=== PATIENT | female | born 1935 | race Two or more races ===

== ENCOUNTER 2024-11-03 15:05 | Inpatient (IN) | payer OTHER, MEDICAID ==
[~2024-11-03] VITALS: Ht 152.4 cm; Wt 62.4 kg
[~2024-11-03 15:05] MED LIST: ENAL1TAB47 PO
--- NOTE | 2024-11-03 15:23 | ECG ---
[facility] Test Date: 2024-11-03 Test Time: 15:09:13 Pat Name: WON Cuevaspartment: ER Room: 0292 Gender: F Catalog Specialist: BRITTANY : 1935 Requested By: SURYA ATKINSON Order Number: [id number] Reading MD: Ezequiel Balderas Measurements Intervals [place] Rate: 80 P: -36 FL: 120 QRS: 34 QRSD: 85 T: 77 QT: 410 QTc: 473 Interpretive Statements Sinus rhythm Probable LVH with secondary repol abnrm Anterior Q waves, possibly due to LVH Baseline wander in lead(s) I Electronically Signed On 11-08-2024 15:24:09 PST by Ezequiel Balderas Please click the below link to view image of tracing.
[2024-11-03] MEDS: SODIUM CHLORIDE 0.9% 500 ML IV ONE (15:30)
--- NOTE | 2024-11-03 15:53 | DVH ---
CLINICAL INDICATION: gangrene toes TECHNIQUE: 3 radiographic views of the left foot were obtained. Comparison: None FINDINGS/IMPRESSION: 1 cm lytic area in the distal phalanx of the left great toe. Osteoporotic changes are noted. There ar e no gas in the surrounding soft tissues. The visualized joint space is well maintained. The alignment is anatomical. There is no radiopaque foreign body. HS:Y
--- NOTE | 2024-11-03 15:54 | DVH ---
CHEST RADIOGRAPH Indication: near syncope gen weak Technique: Single frontal view of the chest was obtained Comparison: None FINDINGS: Lines and Tubes: None Lungs: No focal consolidation. Pleura: No effusion. No pneumothorax. Cardiomediastinal contours: Unremarkable Bones: No acute osseous abnormality. IMPRESSION: 1. No acute cardiopulmonary disease. HS:Y
--- NOTE | 2024-11-03 16:19 | DVH ---
EXAM: CT HEAD WITHOUT CONTRAST HISTORY: gen weak, near syncope COMPARISON: None TECHNIQUE: Axial images of the head were obtained and reformatted in coronal and sagittal planes. All CT scans at this medical facility are performed using dose modulation techniques as appropriate t o a performed exam including the following: Automated exposure control was utilized; adjustment of th e MA and/or KV according to patient size; and use of iterative reconstruction technique. CT Dose: CTDI volume is 54 mGy. Dose-length product is 965 mGy*cm FINDINGS: There is no evidence of acute intracranial hemorrhage, mass, mass effect midline shift. There is no h ydrocephalus or extra-axial fluid collection. There are mild patchy hypodense changes in the supraten torial white matter compatible with chronic small-vessel ischemic changes. Ruiz-white matter differen tiation is maintained. The visualized paranasal sinuses and mastoid air cells are clear. The calvarium is intact. IMPRESSION: 1. No acute intracranial process. HS:Y
[2024-11-03 17:14] LABS: Basophils # (auto) 0 10 ^3/uL (0-0.2); Basophils % (auto) 0.4 % (0.0-2.0); Eosinophils # (auto) 0 10 ^3/uL (0-0.8); Eosinophils % (auto) 0.3 % (0.0-7.0); Hematocrit 33.9 % (36.0-46.0); Hemoglobin 10.8 g/dL (12.2-16.2); Lymphocytes % (auto) 7.8 % (10.0-50.0); Mean Corpuscular Hemoglobin 28.3 pg (28.0-32.0); Mean Corpuscular Hgb Conc. 31.8 g/dL (32.0-36.0); Mean Corpuscular Volume 88.8 fL (80.0-100.0); Monocytes # (auto) 0.8 10 ^3/uL (0-1.3); Monocytes % (auto) 6.2 % (0.0-12.0); Neutrophils # (auto) 10.3 10 ^3/uL (1.6-8.6); Neutrophils % (auto) 85.3 % (37.0-80.0); Nucleated Red Blood Cells % 0.1 %; Platelet Count (auto) 310 10^3/uL (140-450); Red Blood Cells 3.81 10^6/uL (4.0-5.20); Red Cell Distribution Width 15.6 % (11.8-14.3); White Blood Cell 12.1 10^3/uL (4.4-10.8)
[2024-11-03 17:26] LABS: Carbon Dioxide 23 mmol/L (20-31)
[2024-11-03 17:27] LABS: Calcium 9.3 mg/dL (8.7-10.4); Chloride 102 mmol/L (98-107)
[2024-11-03 17:31] LABS: BUN/Creatinine Ratio 20.5 (10.0-20.0)
[2024-11-03 17:36] LABS: Anion Gap 8 (5-15); Blood Urea Nitrogen 25 mg/dL (9-23); Glucose 119 mg/dL (74-106); Potassium 5.5 mmol/L (3.5-5.1); Sodium 133 mmol/L (136-145)
--- NOTE | 2024-11-03 18:16 | ED.PDOC ---
History of Present Illness HPI Comments 89-year-old female brought in by EMS from home for evaluation of generalized weakness. Per EMS, patient's daughter states that she has been less responsive than normal today. When daughter was attempting to help the patient stand from a seated position, she went limp,, and had to be assisted back to a seated position. She did not lose consciousness. On evaluation by EMS, her initial blood pressure was 97/50. On the repeat, blood pressure was 125/57 without intervention. On arrival to the ER, the patient denies any pain or recent illness. She is alert, oriented x3, and states she just feels generally weak. She denies any headache, vision changes or focal weakness. Of note, the patient has left toe chronic appearing gangrene with surrounding mild for foot discoloration. According to EMS, patient's family stated patient is followed by vascular surgery and recently had a visit with that provider. 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 Moist mucous membranes.) Neck: Full Range of Motion, Non-Tender, Normal Inspection, Supple Respiratory: Lungs Clear, No Accessory Muscle Use, No Respiratory Distress, Normal Breath Sounds Cardiovascular: No Edema, No JVD, Regular Rate/Rhythm Breast Exam: Deferred Gastrointestinal: Non Tender, Soft Genitalia: Deferred Pelvic: Deferred Rectal: Deferred Extremities: Other (Left great toe and 2nd toe chronic appearing gangrene with moderate forefoot hyperpigmented skin changes. No fluctuance, discharge or tenderness.) Neurologic: Alert (Oriented x3), Normal Affect, Normal Mood, Other (Moves all extremities with adequate strength and tone. No gross focal deficit.) Cerebellar Function: NOT DONE Reflexes: NOT DONE Skin: Dry, Normal Color, Warm Lymphatic: NOT DONE Was a procedure done? Was a procedure done?: No EKG EKG : Comments Sinus rhythm, rate 80, normal ID and QRS intervals, QTC 473, LVH, possible old anteroseptal infarct, anteroseptal T inversion Differential Dx Considerations may include: Vasovagal presyncope, CVA, TIA, arrhythmia, OK, PE, hypovolemia, electrolyte imbalance, renal failure, among others X-Ray, Labs, Meds, VS Vital Signs Date Time Temp Pulse Resp B/P (MAP) Pulse Ox O2 Delivery O2 Flow Rate FiO2 11/03/24 20:03 87 18 97 Room Air* 0 21 11/03/24 20:03 98.4 85 18 142/32 (68) 97 98.4 11/03/24 20:00 86 11/03/24 18:22 97.8 87 16 133/43 (73) 97 97.8 11/03/24 18:13 Room Air* 0 21 11/03/24 15:30 98.8 80 16 125/51 (75) 96 11/03/24 15:09 80 Lab Test 11/03/24 18:18 11/03/24 16:56 Range/Units Troponin I High Sensitivity 187 *H 189 *H </=34 ng/L White Blood Count 12.1 H 4.4-10.8 10^3/uL Red Blood Count 3.81 L 4.0-5.20 10^6/uL Hemoglobin 10.8 L 12.2-16.2 g/dL Hematocrit 33.9 L 36.0-46.0 % Mean Corpuscular Volume 88.8 80.0-100.0 fL Mean Corpuscular Hemoglobin 28.3 28.0-32.0 pg Mean Corpuscular Hemoglobin Concent 31.8 L 32.0-36.0 g/dL Red Cell Distribution Width 15.6 H 11.8-14.3 % Platelet Count 310 140-450 10^3/uL Mean Platelet Volume 8.2 6.9-10.8 fL Neutrophils (%) (Auto) 85.3 H 37.0-80.0 % Lymphocytes (%) (Auto) 7.8 L 10.0-50.0 % Monocytes (%) (Auto) 6.2 0.0-12.0 % Eosinophils (%) (Auto) 0.3 0.0-7.0 % Basophils (%) (Auto) 0.4 0.0-2.0 % Neutrophils # (Auto) 10.3 H 1.6-8.6 10 ^3/uL Lymphocytes # (Auto) 1.0 0.4-5.4 10 ^3/uL Monocytes # (Auto) 0.8 0-1.3 10 ^3/uL Eosinophils # (Auto) 0 0-0.8 10 ^3/uL Basophils # (Auto) 0 0-0.2 10 ^3/uL Nucleated Red Blood Cells 0.1 % Sodium Level 133 L 136-145 mmol/L Potassium Level 5.5 H 3.5-5.1 mmol/L Chloride Level 102 98-107 mmol/L Carbon Dioxide Level 23 20-31 mmol/L Anion Gap 8 5-15 Blood Urea Nitrogen 25 H 9-23 mg/dL Creatinine 1.22 H 0.550-1.02 mg/dL Glomerular Filtration Rate Calc 43 >90 mL/min BUN/Creatinine Ratio 20.5 H 10.0-20.0 Serum Glucose 119 H 74-106 mg/dL Lactic Acid Level 2.0 0.4-2.0 mmol/L Calcium Level 9.3 8.7-10.4 mg/dL B-Type Natriuretic Peptide 216.39 0-100 pg/mL Current Medications Medications (Trade) Dose Ordered Sig/Sumanth Route Start Time Stop Time Status Last Admin Sodium Chloride 500 ml @ 500 mls/hr Q1H ONCE IV 11/03/24 15:30 11/03/24 16:29 DC 11/03/24 15:30 Zirconium Oxide (Lokelma) 10 gm ONCE ONCE PO 11/03/24 18:15 11/03/24 18:35 DC 11/03/24 19:10 Aspirin 325 mg ONCE ONCE PO 11/03/24 18:15 11/03/24 18:35 DC 11/03/24 19:10 PROCEDURE(s): HWOCT - HEAD WITHOUT CONTRAST REASON: gen weak, near syncope ORDER NUMBER(s): [id number], ACCESSION NUMBER(s): [id number] EXAM: CT HEAD WITHOUT CONTRAST HISTORY: gen weak, near syncope COMPARISON: None TECHNIQUE: Axial images of the head were obtained and reformatted in coronal and sagittal planes. All CT scans at this medical facility are performed using dose modulation techniques as appropriate to a performed exam including the following: Automated exposure control was utilized; adjustment of the MA and/or KV according to patient size; and use of iterative reconstruction technique. CT Dose: CTDI volume is 54 mGy. Dose-length product is 965 mGy*cm FINDINGS: There is no evidence of acute intracranial hemorrhage, mass, mass effect midline shift. There is no hydrocephalus or extra-axial fluid collection. There are mild patchy hypodense changes in the supratentorial white matter compatible with chronic small-vessel ischemic changes. Ruiz-white matter differentiation is maintained. The visualized paranasal sinuses and mastoid air cells are clear. The calvarium is intact. IMPRESSION: 1. No acute intracranial process. HS:Y EDURE(s): CXRP - CHEST PORTABLE REASON: near syncope gen weak ORDER NUMBER(s): [id number], ACCESSION NUMBER(s): [id number] CHEST RADIOGRAPH Indication: near syncope gen weak Technique: Single frontal view of the chest was obtained Comparison: None FINDINGS: Lines and Tubes: None Lungs: No focal consolidation. Pleura: No effusion. No pneumothorax. Cardiomediastinal contours: Unremarkable Bones: No acute osseous abnormality. IMPRESSION: 1. No acute cardiopulmonary disease. HS:Y EDURE(s): LFOOT - L FOOT 3 VIEW XRAY REASON: gangrene toes ORDER NUMBER(s): [id number], ACCESSION NUMBER(s): [id number] CLINICAL INDICATION: gangrene toes TECHNIQUE: 3 radiographic views of the left foot were obtained. Comparison: None FINDINGS/IMPRESSION: 1 cm lytic area in the distal phalanx of the left great toe. Osteoporotic changes are noted. There are no gas in the surrounding soft tissues. The visualized joint space is well maintained. The alignment is anatomical. There is no radiopaque foreign body. HS:Y X-Ray, Labs, Meds, VS Comment 89-year-old female with a history of dementia, diabetes, hypertension, CVA and peripheral vascular disease presenting with generalized weakness and near syncope Vitals remarkable for BP 125/51 Exam remarkable for left toe gangrenous changes and left distal foot chronic appearing hyperpigmented skin changes Rhythm strip independently interpreted by me: Sinus rhythm, rate 80, no ectopy. CT head unremarkable Chest x-ray unremarkable Left foot x-ray: FINDINGS/IMPRESSION: 1 cm lytic area in the distal phalanx of the left great toe. Osteoporotic changes are noted. There are no gas in the surrounding soft tissues. The visualized joint space is well maintained. The alignment is anatomical. There is no radiopaque foreign body. CBC remarkable for WBC 12.1, metabolic panel remarkable for sodium 133, potassium 5.5, BUN 25, creatinine 1.22, troponin elevated at 189, BNP pending, UA pending Patient treated with the following in the ED: 500 cc 0.9 normal saline IV bolus, Lokelma 10 g p.o., aspirin 325 mg p.o. On re-evaluation, patient was resting comfortably with stable vitals. No new neurologic changes. Denied chest pain or shortness a breath. Plan is to admit the patient for electrolyte correction, serial troponins and Cardiology evaluation Time of 1ST Reevaluation: 18:13 Reevaluation 1ST: Unchanged Patient Education/Counseling: Diagnosis, Treatment Family Education/Counseling: No Family Present Departure 1 Departure Time of Disposition: 18:14 Impression: Primary Impression: Generalized weakness Additional Impressions: Hyperkalemia Non-STEMI (non-ST elevated myocardial infarction) Disposition: 09 ADMITTED INPATIENT [facility]mit to: [facility] Condition: Guarded Critical Care Note Critical Care Time?: No Stability Stability form required: No Heart Score Heart Score: Heart Score Response (Comments) Value History N/A 0 EKG N/A 0 Age N/A 0 Risk Factors N/A 0 Troponin N/A 0 Total 0 SURYA ABBOTT MD Nov 03, 2024 18:16
[2024-11-03] MEDS: SODIUM ZIRCONIUM CYCL 10 GM PAK PO ONE (19:10)
[2024-11-03] MEDS: ASPirin 325 MG TAB PO ONE (19:10)
[2024-11-03 20:03] VITALS: PULSE 87; RESP 18; O2SAT 97
[2024-11-03] MEDS ORDERED: ONDANSETRON HCL 4 MG/2 ML VIAL IV PRN (21:45)
--- NOTE | 2024-11-03 22:04 | DVHHPRES ---
History of Present Illness Resident Creating Document: KENNEDY GAGNON RESIDENT Reason for Visit: Generalized weakness History of Present Illness This is an 89-year-old female who was brought in by EMS from home with chief complain of generalized weakness. She has a past medical history relevant for hypertension, type 2 diabetes, peripheral vascular disease, coronary artery disease status post stent placement on 10/29/2024. History was gathered from family members on patient. 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 She stated that she has been feeling weak. She also stated that she has been seen by vascular surgeon due to peripheral vascular disease and it is soon to be operated. Patient currently denies any chest pain, shortness of breath, lightheadedness, abdominal pain, nausea, vomiting, dizziness, dysuria, urinary urgency or frequency, diarrhea or constipation. PCP: Dr. Ruddy Harmon Pie Crimping Machine Operator: Dr. 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: CVA Endocrine: Diabetes Past Medical History See HPI Past Surgical History See HPI Family History See HPI Smoke: No ALCOHOL: none Drugs: None Lives: with Family Past Social History See HPI Review of Systems Constitutional: No: Fever, Chills, Sweats, Weakness, Malaise, Other Eyes: No: Pain, Vision change, Conjunctivae inflammation, Eyelid inflammation, Other, Redness ENT: No: Ear pain, Ear discharge, Nose pain, Nose discharge, Nose congestion, Mouth pain, Mouth swelling, Throat pain, Throat swelling, Other Respiratory: No: Cough, Dry, Shortness of breath, SOB with excertion, Wheezing, Hemoptysis, Pleuritic Pain, Sputum, Wheezing, Other Cardiovascular: No: Chest Pain, Palpitations, Orthopnea, Paroxysmal Noc. Dyspnea, Edema, Lt Headedness, Other Gastrointestinal: No: Nausea, Vomiting, Abdominal Pain, Diarrhea, Constipation, Melena, Hematochezia, Other Genitourinary: No Dysuria, No Frequency, No Incontinence, No Hematuria, No Retention, No Other Musculoskeletal: No: other, neck pain, shoulder pain, arm pain, back pain, hand pain, leg pain, foot pain Skin: Lesions; No: Rash, Jaundice, Bruising, Other Neurological: No: Weakness, Numbness, Incoordination, Change in speech, Confusion, Seizures, Other Allergies: Coded Allergies: NO KNOWN ALLERGIES (Unverified , 11/03/24) Medications Current Medications Medications Dose Ordered Sig/Sumanth Route Start Time Stop Time Status Last Admin Dose Admin Ondansetron HCl 4 mg Q4HPRN PRN IV 11/03/24 21:45 UNV Acetaminophen/ Hydrocodone Bitart 1 tab Q6HPRN PRN PO 11/03/24 21:45 UNV Piperacillin Sod/ Tazobactam Sod 100 ml @ 25 mls/hr Q8HR IV 11/03/24 22:00 UNV Exam Vital Signs Vital Signs Date Time Temp Pulse Resp B/P (MAP) Pulse Ox O2 Delivery O2 Flow Rate FiO2 11/03/24 20:03 87 18 97 Room Air* 0 21 11/03/24 20:03 98.4 142/32 (68) 98.4 General Appearance: Alert, Oriented X3, Cooperative, No acute distress HEENT: Atraumatic, PERRLA, EOMI, Mucous membr. moist/pink Respiratory: Clear to auscultation, Normal air movement Cardiovascular: Regular rate, Normal S1, Normal S2, No murmurs Abdominal: Normal bowel sounds, Soft, No tenderness Extremities: No clubbing, No cyanosis, No edema, Normal pulses Skin: No rashes (1st and 2nd grade 2 of left foot appeared to have gangrene, no discharge, no fluctuation, moderately tender to palpation. Decreased pulses on lower limbs) Neuro: Normal gait, Normal speech, Strength at 5/5 X4 ext Psych/Mental Status: Mental status NL, Mood NL Labs/Xrays Labs Test 11/03/24 18:18 11/03/24 16:56 Range/Units Troponin I High Sensitivity 187 *H </=34 ng/L White Blood Count 12.1 H 4.4-10.8 10^3/uL Red Blood Count 3.81 L 4.0-5.20 10^6/uL Hemoglobin 10.8 L 12.2-16.2 g/dL Hematocrit 33.9 L 36.0-46.0 % Mean Corpuscular Volume 88.8 80.0-100.0 fL Mean Corpuscular Hemoglobin 28.3 28.0-32.0 pg Mean Corpuscular Hemoglobin Concent 31.8 L 32.0-36.0 g/dL Red Cell Distribution Width 15.6 H 11.8-14.3 % Platelet Count 310 140-450 10^3/uL Mean Platelet Volume 8.2 6.9-10.8 fL Neutrophils (%) (Auto) 85.3 H 37.0-80.0 % Lymphocytes (%) (Auto) 7.8 L 10.0-50.0 % Monocytes (%) (Auto) 6.2 0.0-12.0 % Eosinophils (%) (Auto) 0.3 0.0-7.0 % Basophils (%) (Auto) 0.4 0.0-2.0 % Neutrophils # (Auto) 10.3 H 1.6-8.6 10 ^3/uL Lymphocytes # (Auto) 1.0 0.4-5.4 10 ^3/uL Monocytes # (Auto) 0.8 0-1.3 10 ^3/uL Eosinophils # (Auto) 0 0-0.8 10 ^3/uL Basophils # (Auto) 0 0-0.2 10 ^3/uL Nucleated Red Blood Cells 0.1 % Sodium Level 133 L 136-145 mmol/L Potassium Level 5.5 H 3.5-5.1 mmol/L Chloride Level 102 98-107 mmol/L Carbon Dioxide Level 23 20-31 mmol/L Anion Gap 8 5-15 Blood Urea Nitrogen 25 H 9-23 mg/dL Creatinine 1.22 H 0.550-1.02 mg/dL Glomerular Filtration Rate Calc 43 >90 mL/min BUN/Creatinine Ratio 20.5 H 10.0-20.0 Serum Glucose 119 H 74-106 mg/dL Lactic Acid Level 2.0 0.4-2.0 mmol/L Calcium Level 9.3 8.7-10.4 mg/dL B-Type Natriuretic Peptide 216.39 0-100 pg/mL Assessment/Plan Assessment/Plan # generalized weakness, metabolic encephalopathy possibly related to underlying infection. Rule out osteomyelitis, UTI. # rule out limb ischemia Urine follow blood culture, urine culture. Continue IV fluids Continue Zosyn IV Ordered arterial Doppler Consulted vascular surgery Ordered MRSA swab Ordered MRI of right foot Type and group, PT PTT # NSTEMI likely type 2 due to above # CAD Possibly due to underlying infection Patient also had a stent placed on 10/29/2024 Troponins trending down, EKG reviewed, no acute ST/T changes Continue Plavix 75 mg p.o. q.d. ordered echo # RUSSELL due to VMN Continue IV fluids Avoid nephrotoxic agents # hyperkalemia Lokelma given Monitor # type 2 diabetes Ordered A1c SSI mild # hypertension, controlled Monitor Goals of care were discussed for over 30 minutes. Full code Case was discussed with Dr. Marte Plan discussed with: Patient, Daughter My Orders Orders - KENNEDY GAGNON RESIDENT Procedure Category Date Status Time Admit ADMIT 11/03/24 Transmitted 21:42 Notify Md Of Changes [facility] 11/03/24 In Process From Base 21:42 Railroad Dispatcher For [facility] 11/03/24 In Process 24 Hours 21:42 Emergency Dysrhythmia [facility] 11/03/24 In Process Protocol 21:42 Rhythm Strips Once [facility] 11/03/24 In Process Every Shift 21:42 Urine Bacterial MARY 11/03/24 Logged Culture 21:42 Mrsa Screen MARY 11/03/24 Logged 21:42 Mri R Foot Wo Contrast MRI 11/03/24 Logged 21:42 Bilat Low Ext Art US 11/03/24 Logged Duplex 21:42 Ondansetron Hcl PHA 11/03/24 Logged (Zofran) 21:45 Hydrocodone-Acet PHA 11/03/24 Logged 5/325mg Tab ([place] 21:45 Consistent DIET 11/04/24 Transmitted Carb(Ccho)Diabetes Breakfast Type And Screen BBK 11/03/24 Logged 21:42 PTPTT LAB 11/03/24 Logged 21:42 Potassium LAB 11/03/24 Logged 21:42 Magnesium LAB 11/03/24 Logged 21:42 Piperacillin-Tazob PHA 11/03/24 Logged 3.375gm (Zosyn 3.375g 22:00 Sodium Chloride 0.9% PHA 11/03/24 Logged 21:45 Consult CONS 11/03/24 Transmitted Vascular/Endovascular 21:42 Date of Service: Nov 03, 2024 Billing Provider: GIOVANI MARTE MD Common Visit Codes: 26730-OSOHETY INP/OBS CARE (HIGH) Secondary Visit Codes: 66167-[id number] CARE PLAN 30 MINUTES KENNEDY GAGNON RESIDENT Nov 03, 2024 22:04 GIOVANI MARTE MD Nov 04, 2024 08:23
[2024-11-03] MEDS ORDERED: DEXTROSE (50%) 50ML SYRG IV PRN (22:15)
[2024-11-03 22:38] LABS: Magnesium 2.2 mg/dL (1.6-2.6)
[2024-11-03] MEDS: SODIUM CHLORIDE 0.9% 1,000 ML IV ONE (22:40)
[2024-11-03] MEDS: PIPERACILLIN-TAZOB 3.375GM 100 ML IV SCH (22:40)
[2024-11-03 23:27] LABS: INR 1.08 (0.9-1.15); Partial Thromboplastin Time 31.3 SEC (24.5-34.5); Prothrombin Time 11.4 sec (9.3-11.8)
[2024-11-04 02:50] LABS: Urine Bacteria None Seen /hpf (None Seen)
[2024-11-04 02:54] LABS: Urine Blood Negative /uL (Negative); Urine Clarity Clear (Clear); Urine Color Light-Yellow (Yellow); Urine Protein, UAD Negative (Negative); Urine Specific Gravity 1.022 (1.001-1.035); Urine Squamous Epithelial Cell None Seen /hpf (<5); Urine Urobilinogen 2 mg/dL (Negative); Urine WBC 1 /hpf (0 - 5)
--- NOTE | 2024-11-04 03:48 | DVH ---
Examination: BLEAD CLINICAL INDICATION: foot ischemia. COMPARISON: None. TECHNIQUE: Using real-time ultrasonic imaging and color Doppler the arterial circulation in both low er extremities was studied carefully. FINDINGS: Common femoral, superficial femoral and popliteal arteries are normal in course, caliber and contour bilaterally. These arteries exhibit normal biphasic flow with good diastolic run-off. No evidence of turbulence o r aliasing seen. The peak systolic, peak end-diastolic velocities and their respective S/D ratios in common femoral, s uperficial femoral and popliteal arteries are within normal limits. No evidence of hemodynamically significant stenosis seen. IMPRESSION: No acute arterial occlusion/thrombosis seen. Electronically Signed 11/04/2024 03:47 Casey Hollingsworth
[2024-11-04] MEDS: InsuLIN REG 1unit/0.01ml Soln (100units/ml) SC SCH (07:00)
[2024-11-04] MEDS: ACCU-CHEK COMFORT CURVE STRIP VI SCH (07:06)
[2024-11-04 07:35] LABS: Chloride 106 mmol/L (98-107); Potassium 4.2 mmol/L (3.5-5.1); Sodium 137 mmol/L (136-145)
[2024-11-04 07:36] LABS: Anion Gap 6 (5-15); Basophils # (auto) 0 10 ^3/uL (0-0.2); Basophils % (auto) 0.5 % (0.0-2.0); Calcium 9.2 mg/dL (8.7-10.4); Carbon Dioxide 25 mmol/L (20-31); Eosinophils # (auto) 0.1 10 ^3/uL (0-0.8); Eosinophils % (auto) 0.7 % (0.0-7.0); Hematocrit 30.9 % (36.0-46.0); Hemoglobin 10.3 g/dL (12.2-16.2); Lymphocytes # (auto) 1.7 10 ^3/uL (0.4-5.4); Mean Corpuscular Hemoglobin 29.1 pg (28.0-32.0); Mean Corpuscular Hgb Conc. 33.2 g/dL (32.0-36.0); Mean Corpuscular Volume 87.6 fL (80.0-100.0); Monocytes # (auto) 0.7 10 ^3/uL (0-1.3); Monocytes % (auto) 8.4 % (0.0-12.0); Neutrophils # (auto) 6.4 10 ^3/uL (1.6-8.6); Neutrophils % (auto) 71.4 % (37.0-80.0); Nucleated Red Blood Cells % 0.1 %; Platelet Count (auto) 294 10^3/uL (140-450); Red Blood Cells 3.53 10^6/uL (4.0-5.20); Red Cell Distribution Width 15.8 % (11.8-14.3); White Blood Cell 8.9 10^3/uL (4.4-10.8)
[2024-11-04 07:41] LABS: Blood Urea Nitrogen 23 mg/dL (9-23); Glucose 93 mg/dL (74-106)
[2024-11-04 07:58] VITALS: PULSE 75; RESP 19; O2SAT 95
[2024-11-04 08:20] LABS: Erythrocyte Sedimentation Rate 94 mm/hr (0-20)
[2024-11-04] MEDS: ENALAPRIL MALEATE 10 MG TAB PO SCH (10:28)
[2024-11-04] MEDS: CLOPIDOGREL BISULFATE 75 MG TAB PO SCH (10:29)
--- NOTE | 2024-11-04 10:47 | DVH ---
CLINICAL HISTORY: 89 years old, Female; gangrene of the toes. Rule out osteomyelitis. TECHNIQUE: Multi sequence multi planar MRI images of the left foot were obtained without IV contrast . COMPARISON: Radiographs dated 11/03/2024. FINDINGS: Motion artifact limits evaluation. There is a wound at the distal aspect of the great toe. There is T2/stir hyperintense signal in the proximal and middle phalanges of the great toe. There ap pear to be erosive/destructive changes in the distal phalanx of the great toe, may be due to osteomye litis. There is no T1 hypointense signal in the proximal phalanx of the great toe to suggest osteomye litis at this time. There is also a wound at the distal aspect of the 2nd digit of the left foot with adjacent soft tissu e edema surrounding the middle and distal phalanges of the 2nd digit. There is T1 hypointense and T2 hyperintense signal in the distal phalanx of the 2nd digit, suspected osteomyelitis. T2 hyperintense signal and questionable small areas of T1 hypointense signal in the middle phalanx of the 2nd digit, possible osteomyelitis. There is marrow edema of the tibial sesamoid of the 1st metatarsal, may be due to sesamoiditis and/or arthritic changes. Can not completely exclude osteomyelitis. Cystic change at the plantar aspect of the 1st metatarsal head adjacent to the, likely sequelae of arthritic changes. There is a bipartite configuration of the fibular sesamoid. IMPRESSION: 1. Motion limited study. 2. Wounds of the distal aspects of the 1st and 2nd digits with adjacent soft tissue inflammatory gramajo ges, likely cellulitis. There is gas within the soft tissues of the great toe, may be tracking from t he wound or due to necrotizing infection. 3. Destructive changes in the distal phalanx of the 2nd digit are suspicious for osteomyelitis. There is T2 hyperintense signal in the proximal phalanx of the great toe without corresponding T1 hypointe nse signal to suggest osteomyelitis, likely reactive marrow signal changes, although evaluation is li mited due to the motion artifact. 4. Suspected osteomyelitis in the distal phalanx of the 2nd digit and possible osteomyelitis of the p roximal phalanx of the 2nd digit. 5. Marrow edema in the tibial sesamoid of the 1st metatarsal may be due to sesamoiditis and/or arthri tic changes or reactive marrow signal changes. Osteomyelitis can not be completely excluded. Correla te with clinical findings. 6. Additional findings as described above.
[2024-11-04] MEDS: RIVAROXABAN 2.5 MG TAB PO SCH (10:49)
[2024-11-04 11:03] VITALS: PULSE 92
[2024-11-04 12:46] VITALS: BP 107/79; PULSE 81; RESP 18; TEMP 98.2; O2SAT 98
[2024-11-04] MEDS ORDERED: RIVA2.5T PO (14:53)
[2024-11-04] MEDS ORDERED: DAPA10TA3 PO (14:53)
[2024-11-04] MEDS ORDERED: INSU300I SC (14:53)
[2024-11-04] MEDS ORDERED: FAMO-12 PO (14:53)
[2024-11-04] MEDS ORDERED: CLOP75TA70 PO (14:53)
[2024-11-04] MEDS ORDERED: ATOR20TA50 PO (14:53)
[2024-11-04] MEDS ORDERED: ENAL1TAB42 PO (14:53)
[2024-11-04 17:00] VITALS: BP 164/43; PULSE 75; RESP 19; TEMP 98.6; O2SAT 96
[2024-11-04] MEDS: NIFEdipine ER 30 MG TAB PO ONE (19:30)
--- NOTE | 2024-11-04 19:47 | DVHPNRES ---
Progress Note Date Seen: Nov 04, 2024 Resident Creating Document: ANTHONY LAKHANI RESIDENT Medical Necessity Reason Pt with a Central, PICC or Fol: No Subjective Review of Systems Patient is an 89-year-old female who was brought in by EMS from home with chief complaint of generalized weakness. History was gathered from family members on patient. 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 She stated that she has been feeling weak. She also stated that she has been seen by vascular surgeon due to peripheral vascular disease and it is soon to be operated. Past medical history: hypertension, type 2 diabetes, peripheral vascular disease, coronary artery disease status post stent placement on 10/29/2024. Past surgical history: PTCA x1 Social history: Patient lives with the daughter and does not report any smoking, alcohol or illicit drug use Home medications: Atorvastatin 20 mg, clopidogrel 75 mg, enalapril 2.5 mg q.d., rivaroxaban 2.5 mg b.i.d., insulin glargine 30 units q.a.m., dapagliflozin 10 mg Review of systems Patient currently denies any chest pain, shortness of breath, lightheadedness, abdominal pain, nausea, vomiting, dizziness, dysuria, urinary urgency or frequency, diarrhea or constipation. Objective vital signs Vital Sign Date Time Temp Pulse Resp B/P (MAP) Pulse Ox O2 Delivery O2 Flow Rate FiO2 11/04/24 17:00 98.6 75 19 164/43 (83) 96 98.6 11/04/24 11:30 Room Air* 0 21 Total Intake and Output 11/03/24 11/03/24 11/04/24 15:00 23:00 07:00 Intake Total 500 ml 800 ml Balance 500 ml 800 ml medications Current Medications Medications Dose Ordered Sig/Sumanth Route Start Time Stop Time Status Last Admin Dose Admin Ondansetron HCl 4 mg Q4HPRN PRN IV 11/03/24 21:45 Acetaminophen/ Hydrocodone Bitart 1 tab Q6HPRN PRN PO 11/03/24 21:45 Piperacillin Sod/ Tazobactam Sod 100 ml @ 25 mls/hr Q8HR IV 11/03/24 22:00 11/04/24 14:00 25 MLS/HR Diagnostic Test (Pha) 1 strip ACHS 11/04/24 07:00 11/04/24 16:43 1 STRIP Insulin Human Regular ACHS SC 11/04/24 07:00 11/04/24 11:43 3 UNITS Dextrose 50 ml UD PRN IV 11/03/24 22:15 Clopidogrel Bisulfate 75 mg DAILY PO 11/04/24 10:00 11/04/24 10:29 75 MG Rivaroxaban 2.5 mg BID PO 11/04/24 10:00 11/04/24 11:23 2.5 MG Enalapril Maleate 10 mg DAILY PO 11/04/24 10:00 11/04/24 10:28 10 MG Linezolid 300 ml @ 150 mls/hr Q12HR IV 11/04/24 22:00 Examination Physical Examination Constitutional: Patient was alert and oriented to time place and person and does not appear to be in any acute distress Gen - no pallor, no icterus, no cyanosis, no clubbing, no LAD, no edema . Skin - Patients skin is warm and dry. HEENT - normocephalic, atraumatic, moist mucous membranes. Neck - full ROM, no LAD, no JVD Pulmonary - B/L vesicular breath sounds. no crackles , no wheezing, no stridor. cardiovascular - normal S1,S2 heard. no murmurs heard. GI - soft abdomen without tenderness to palpation. no hepatospleenomegaly. Bowel sounds normoactive Neurological - Bilateral upper extremity strength 5/5, bilateral lower extremity strength 3/5, no facial droop, normal speech, no tremor, no sensory deficiets. Extremities- left foot great toe and tip of the 2nd left toe blackened with the erythema surrounding laboratory and microbiology Laboratory Tests 11/04/24 07:06 Test 11/04/24 07:06 Range/Units Serum Glucose 93 74-106 mg/dL Microbiology Date/Time Source Procedure Growth Status 11/03/24 16:56 Blood Blood Culture - Preliminary NO GROWTH AFTER 24 HOURS OF INCUBATION. Resulted Problem List/Assessment/Plan Problem List/Assessment/Plan # necrotizing infection of the foot # osteomyelitis Left foot MRI shows 1.Wounds of the distal aspects of the 1st and 2nd digits with adjacent soft tissue inflammatory changes, likely cellulitis. There is gas within the soft tissues of the great toe, may be tracking from the wound or due to necrotizing infection. 2.Destructive changes in the distal phalanx of the 2nd digit are suspicious for osteomyelitis. There is T2 hyperintense signal in the proximal phalanx of the great toe without corresponding T1 hypointense signal to suggest osteomyelitis, likely reactive marrow signal changes, although evaluation is limited due to the motion artifact. 3.Suspected osteomyelitis in the distal phalanx of the 2nd digit and possible osteomyelitis of the proximal phalanx of the 2nd digit. 4.Marrow edema in the tibial sesamoid of the 1st metatarsal may be due to sesamoiditis and/or arthritic changes or reactive marrow signal changes. Osteomyelitis can not be completely excluded. - on Zosyn and linezolid IV - blood culture at 12:00 p.m. shows no growth - podiatry consulted, planned for surgery tomorrow - lower extremity arterial Doppler showed no evidence of hemodynamically significant stenosis # NSTEMI likely type 2 due to above # CAD Possibly due to underlying infection Patient also had a stent placed on 10/29/2024 Troponins trending down, EKG reviewed, no acute ST/T changes Continue Plavix 75 mg p.o. q.d. and Xarelto 2.5 mg b.i.d. Echo pending # RUSSELL due to VMN Continue IV fluids Avoid nephrotoxic agents # Hyperkalemia Resolved # type 2 diabetes HbA1c 6.3% On mild insulin sliding scale # uncontrolled hypertension - on enalapril 10 mg and nifedipine 30 mg Goals of care discussed with the patient son for over 27 minutes. Full code Case was discussed with Dr. Burnett Plan discussed with: Patient, Son My Orders My Orders Orders - ANTHONY LAKHANI RESIDENT Procedure Category Date Status Time Wound Culture W/ Gs MARY 11/04/24 In Process 13:18 *Podiatry Consult CONS 11/04/24 Transmitted [facility]) 11:49 Linezolid 600mg/300ml PHA 11/04/24 In Process ([facility]) 22:00 * Dietary Consult CONS 11/04/24 Transmitted 14:54 Date of Service: Nov 04, 2024 Billing Provider: HUNTER BURNETT MD Common Visit Codes: [id number] INP/OBS CARE(HIGH) ANTHONY LAKHANI RESIDENT Nov 04, 2024 19:47 HUNTER BURNETT MD Nov 05, 2024 15:30
[2024-11-04 20:00] VITALS: PULSE 71; PULSE 73; RESP 18; O2SAT 98
[2024-11-04 21:00] VITALS: BP 139/36; PULSE 71; RESP 18; TEMP 98.3; O2SAT 98
[2024-11-04] MEDS: LINEZOLID 600MG/300ML 300 ML IV SCH (21:19)
[2024-11-05] VITALS (9 sets, daily range): BP systolic 128–148; BP diastolic 40–74; PULSE 67–102; RESP 18–20; TEMP 97.4–98.2; O2SAT 93–100
[2024-11-05 07:34] LABS: Basophils # (auto) 0 10 ^3/uL (0-0.2); Basophils % (auto) 0.4 % (0.0-2.0); Eosinophils # (auto) 0.1 10 ^3/uL (0-0.8); Eosinophils % (auto) 0.7 % (0.0-7.0); Hematocrit 30.3 % (36.0-46.0); Hemoglobin 9.9 g/dL (12.2-16.2); Lymphocytes # (auto) 1.2 10 ^3/uL (0.4-5.4); Lymphocytes % (auto) 16.1 % (10.0-50.0); Mean Corpuscular Hemoglobin 28.7 pg (28.0-32.0); Mean Corpuscular Hgb Conc. 32.7 g/dL (32.0-36.0); Monocytes # (auto) 0.7 10 ^3/uL (0-1.3); Monocytes % (auto) 9.5 % (0.0-12.0); Neutrophils # (auto) 5.6 10 ^3/uL (1.6-8.6); Neutrophils % (auto) 73.3 % (37.0-80.0); Nucleated Red Blood Cells % 0.1 %; Platelet Count (auto) 281 10^3/uL (140-450); Red Blood Cells 3.44 10^6/uL (4.0-5.20); Red Cell Distribution Width 15.7 % (11.8-14.3); White Blood Cell 7.6 10^3/uL (4.4-10.8)
[2024-11-05 07:56] LABS: Alanine Aminotransferase 15 U/L (7-40); Albumin 3.7 g/dL (3.2-4.8); Alkaline Phosphatase 93 U/L (46-116); Anion Gap 7 (5-15); Aspartate Aminotransferase 38 U/L (13-40); BUN/Creatinine Ratio 14.2 (10.0-20.0); Bilirubin, Total 0.7 mg/dL (0.2-1.0); Blood Urea Nitrogen 17 mg/dL (9-23); Calcium 9.6 mg/dL (8.7-10.4); Carbon Dioxide 26 mmol/L (20-31); Chloride 103 mmol/L (98-107); Potassium 4.2 mmol/L (3.5-5.1); Sodium 136 mmol/L (136-145)
[2024-11-05 07:57] LABS: Glucose 116 mg/dL (74-106); Total Protein 8.3 g/dL (5.7-8.2)
--- NOTE | 2024-11-05 08:43 | DVHSR ---
APPROVED REPORT EXAM: Two-dimensional and M-mode echocardiogram with Doppler and color Doppler. Blood Pressure: 166/58 mmHg INDICATION elevated trops RISK FACTORS Height: 5'0, Weight: 150 DIMENSIONS LVDd3.6 (3.8-5.7cm)LA (2D)4.9 (1.9-4.0cm)Aortic Root2.8 (2.0-3.7cm) LVDs2.8 (2.5-4.0cm)LA (MM) (1.9-4.0cm)Aortic Cusp Exc0.7 (1.5-2.0cm) EF (%) 55.0 (55-70%)Rt. Atrium2.4 (1.9-4.0cm)Asc. Aorta cm IVSd1.4 (0.7-1.1cm)RV (D)3.3 (1.8-2.4cm) PWd1.7 (0.7-1.1cm) Mitral Valve MitralMitral Stenosis E wave1.78m/sMV Mean GR.8mmHg A wave1.83m/sMV Peak GR.170mmHg E/A ratio1.02D MVAcm2 DECEL [id number] 1/2 Timems Aortic Valve Aortic ValveAortic Stenosis V11.15m/Emmanuel Mean GR.15mmHg V22.60m/Emmanuel Peak GR.23mmHg LVOT Diameter1.7 (1.8-2.4cm)Doppler AVA1.00cm2 Pulmonic Valve V21.01m/s Tricuspid Valve TR Velocity3.31m/s [id number] LEFT VENTRICLE The left ventricle is of normal size. Wall thickness is moderately increased. Ejection fraction is normal and is estimated at 55-60%. There is no regional wall motion abnormalities. There is grade I I diastolic dysfunction. RIGHT VENTRICLE The right ventricle is of normal size. Systolic function is normal. ATRIA The left atrium is severely dilated in size. Right atrium is of normal size. MITRAL VALVE There is severe mitral annular calcification. There is mild mitral regurgitation. There is mild-to- moderate mitral stenosis with a mean valve gradient of 7 mm Hg at a heart rate of 72 beats per minute . PULMONIC VALVE Likely normal. TRICUSPID VALVE Normal structure and function. There is mild tricuspid regurgitation. PA systolic pressure is estim ated at 55 mm Hg. 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 Valve function appears to be normal. T here is no significant regurgitation. Peak velocity is 2.6 m/sec with a mean gradient 15 mm Hg. GREAT VESSELS Not well visualized. PERICARDIAL EFFUSION No significant effusion. IVC is of normal size. Conclusion Normal left ventricular size and systolic function. Ejection fraction is estimated at 55-60%. There is grade II diastolic dysfunction. There is moderate concentric left ventricular hypertrophy. Normal right ventricular size and systolic function. Patient is likely status post TAVR with normal functioning valve. Severe mitral annular calcification with [id number] mitral stenosis. PA systolic pressure is estimated at 55 mm Hg.
[2024-11-05] MEDS ORDERED: DexAMETHasone SOD PHOS 10MG/1ML VIAL INJ IV ONE (11:42)
--- NOTE | 2024-11-05 12:41 | DVHINCON2 ---
Date Seen: Nov 05, 2024 Reason for Consultation Left foot wound History of Present Illness This is an 89-year-old female who was brought in by EMS from home with chief complain of generalized weakness. She has a past medical history relevant for hypertension, type 2 diabetes, peripheral vascular disease, coronary artery disease status post stent placement on 10/29/2024. History was gathered from family members on patient. 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 She stated that she has been feeling weak. She also stated that she has been seen by vascular surgeon due to peripheral vascular disease and it is soon to be operated. Patient currently denies any chest pain, shortness of breath, lightheadedness, abdominal pain, nausea, vomiting, dizziness, dysuria, urinary urgency or frequen cy, diarrhea or constipation. Past Medical History See H&P Past Surgical History See H&P Family History: Diabetes mellitus G8 FATHER Allergies: Coded Allergies: NO KNOWN ALLERGIES (Unverified , 11/03/24) Home Meds Reported Medications Rivaroxaban (Xarelto) 2.5 Mg Tab, 2.5 MG PO BID, TAB 11/04/24 Atorvastatin Calcium (ATORVASTATIN CALCIUM) 20 Mg Tab, 20 MG PO DAILY, TAB 11/04/24 Insulin Glargine (Toujeo Max Solostar) 300 Unit/Ml Inj, 30 UNIT SC QAM, INJ 11/04/24 Famotidine (Famotidine) 20 Mg Tab, 20 MG PO BID for 30 Days, MG 11/04/24 Enalapril Maleate (Enalapril Maleate) 2.5 Mg Tab, 2.5 MG PO DAILY for 30 Days, MG 11/04/24 Dapagliflozin Propanediol (Dapagliflozin Propanediol) 10 Mg Tab, 10 MG PO DAILY, TAB 11/04/24 Clopidogrel Bisulfate (CLOPIDOGREL) 75 Mg Tab, 1 TAB PO DAILY, #90 TAB 1 Refill 11/04/24 Current Medications Current Medications Medications (Trade) Dose Ordered Sig/Sumanth Route PRN Reason Start Time Stop Time Status Last Admin Linezolid 300 ml @ 150 mls/hr Q12HR IV 11/04/24 22:00 11/04/24 21:19 Vital Signs Vital Signs Date Time Temp Pulse Resp B/P (MAP) Pulse Ox O2 Delivery O2 Flow Rate FiO2 11/05/24 12:34 97.9 71 20 133/50 (77) 100 97.9 11/05/24 08:00 Room Air* 0 21 Physical Exam DERMATOLOGIC EXAM: - Skin is dry and cool to the touch dry bilaterally. 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 - SCALE INSTALLER is brisk to all digits. - Feet are cool to touch compared to lower legs bilaterally. NEUROLOGIC EXAM: - Normal light touch sensation to the superficial peroneal, deep peroneal, sural, saphenous, and tibial nerve branches. - Protective sensation is diminished as tested with a 5.07 10g [place] bilaterally. MUSCULOSKELETAL EXAM: - No gross deformities - Muscle strength is 5/5 and active motion is pain-free and symmetrical bilaterally - No pain or crepitation with passive range of motion bilaterally to all major pedal joints Labs/Diagnostic Data Labs Test 11/05/24 12:01 11/05/24 06:24 11/04/24 07:06 11/04/24 02:49 Range/Units POC Glucose 137 H 70-106 mg/dl White Blood Count 7.6 4.4-10.8 10^3/uL Red Blood Count 3.44 L 4.0-5.20 10^6/uL Hemoglobin 9.9 L 12.2-16.2 g/dL Hematocrit 30.3 L 36.0-46.0 % Mean Corpuscular Volume 88.0 80.0-100.0 fL Mean Corpuscular Hemoglobin 28.7 28.0-32.0 pg Mean Corpuscular Hemoglobin Concent 32.7 32.0-36.0 g/dL Red Cell Distribution Width 15.7 H 11.8-14.3 % Platelet Count 281 140-450 10^3/uL Mean Platelet Volume 8.3 6.9-10.8 fL Neutrophils (%) (Auto) 73.3 37.0-80.0 % Lymphocytes (%) (Auto) 16.1 10.0-50.0 % Monocytes (%) (Auto) 9.5 0.0-12.0 % Eosinophils (%) (Auto) 0.7 0.0-7.0 % Basophils (%) (Auto) 0.4 0.0-2.0 % Neutrophils # (Auto) 5.6 1.6-8.6 10 ^3/uL Lymphocytes # (Auto) 1.2 0.4-5.4 10 ^3/uL Monocytes # (Auto) 0.7 0-1.3 10 ^3/uL Eosinophils # (Auto) 0.1 0-0.8 10 ^3/uL Basophils # (Auto) 0 0-0.2 10 ^3/uL Nucleated Red Blood Cells 0.1 % Sodium Level 136 136-145 mmol/L Potassium Level 4.2 3.5-5.1 mmol/L Chloride Level 103 98-107 mmol/L Carbon Dioxide Level 26 20-31 mmol/L Anion Gap 7 5-15 Blood Urea Nitrogen 17 9-23 mg/dL Creatinine 1.20 H 0.550-1.02 mg/dL Glomerular Filtration Rate Calc 44 >90 mL/min BUN/Creatinine Ratio 14.2 10.0-20.0 Serum Glucose 116 H 74-106 mg/dL Calcium Level 9.6 8.7-10.4 mg/dL Total Bilirubin 0.7 0.2-1.0 mg/dL Aspartate Amino Transferase (AST) 38 13-40 U/L Alanine Aminotransferase (ALT) 15 7-40 U/L Alkaline Phosphatase 93 46-116 U/L Total Protein 8.3 H 5.7-8.2 g/dL Albumin 3.7 3.2-4.8 g/dL Erythrocyte Sedimentation Rate 94 H 0-20 mm/hr C-Reactive Protein High Sensitivity 11.29 H <1.0 mg/dL Urine Color Light-yellow Yellow Urine Clarity Clear Clear Urine pH 6.0 5.0-9.0 Urine Specific [place] 1.022 1.001-1.035 Urine Protein Negative Negative Urine Ketones Negative Negative Urine Blood Negative Negative /uL Urine Nitrite Negative Negative Urine Bilirubin Negative Negative Urine Urobilinogen 2 H Negative mg/dL Urine Leukocyte Esterase Negative Negative /uL Urine RBC None seen 0 - 4 /hpf Urine WBC 1 0 - 5 /hpf Urine Squamous Epithelial Cells None seen <5 /hpf Urine Bacteria None seen None Seen /hpf Urine Glucose Normal Normal mg/dL Test 11/03/24 22:10 11/03/24 18:18 11/03/24 16:56 Range/Units Prothrombin Time 11.4 9.3-11.8 sec Prothrombin Time INR 1.08 0.9-1.15 Activated Partial Thromboplast Time 31.3 24.5-34.5 SEC Magnesium Level 2.2 1.6-2.6 mg/dL Troponin I High Sensitivity 187 *H </=34 ng/L Hemoglobin A1c 6.3 H <5.7 % A1C Lactic Acid Level 2.0 0.4-2.0 mmol/L B-Type Natriuretic Peptide 216.39 0-100 pg/mL Microbiology Date/Time Source Procedure Growth Status 11/05/24 06:24 Nose MRSA Screen - Final Complete 11/03/24 16:56 Blood Blood Culture - Preliminary NO GROWTH AFTER 24 HOURS OF INCUBATION. Resulted Problems(with codes): (1) Elevated troponin (2) Non-STEMI (non-ST elevated myocardial infarction) (3) Hyperkalemia (4) Generalized weakness (5) Osteomyelitis of ankle and foot (6) Cellulitis of foot (7) Abscess of foot (8) Gangrene of foot Plan/Recommendation ASSESSMENT: Patient is a year old seen on the floor for a worsening ulcer PLAN: - The patients chart was reviewed, clinical findings were discussed with the patient, the etiologies of the conditions were discussed in detail, and a treatment plan was agreed to at this time, with both oral and written instructions provided. - reviewed advanced imaging - discussed plan is to perform an incision and drainage - patient will be NPO at midnight - take him to the OR today - patient will return to the OR at a future date for closure - we will get cultures in the OR - can weightbear as tolerated in postoperative shoe All questions were answered and concerns addressed to the patient's satisfaction. The patient was given the phone number to the clinic and was told how to make contact with the clinic should any concerns or questions arise. Patient understands that if any questions or concerns arise prior to the next appointment, we should be contacted immediately. FOLLOW-UP: Continue to follow while inpatient Plan discussed with: Patient Date of Service: Nov 05, 2024 Billing Provider: SILVINA JONES DPM Common Visit Codes: [id number] INP/OBS CARE (HIGH) SILVINA JONES DPM Nov 05, 2024 12:41
[2024-11-05] MEDS ORDERED: PROPOFOL 10 MG/ML 20 ML IV ONE (14:55)
[2024-11-05] MEDS: BUPIVACAINE 0.5% P/F INJ 10 ML VIAL ONE (15:13)
[2024-11-05] MEDS: HYDROcodone-ACET 5/325MG TAB PO PRN (21:20)
--- NOTE | 2024-11-05 22:24 | DVHPNRES ---
Progress Note Date Seen: Nov 05, 2024 Resident Creating Document: ANTHONY LAKHANI RESIDENT Medical Necessity Reason Pt with a Central, PICC or Fol: No Subjective Review of Systems Review of systems Patient currently denies any chest pain, shortness of breath, lightheadedness, abdominal pain, nausea, vomiting, dizziness, dysuria, urinary urgency or frequency, diarrhea or constipation. Underwent amputation today Objective vital signs Vital Sign Date Time Temp Pulse Resp B/P (MAP) Pulse Ox O2 Delivery O2 Flow Rate FiO2 11/05/24 16:59 98.2 102 18 128/74 (92) 93 98.2 11/05/24 08:00 Room Air* 0 21 Total Intake and Output 11/04/24 11/04/24 11/05/24 15:00 23:00 07:00 Intake Total 100 ml 520 ml 800 ml Output Total 800 ml Balance 100 ml 520 ml 0 ml medications Current Medications Medications Dose Ordered Sig/Sumanth Route Start Time Stop Time Status Last Admin Dose Admin Ondansetron HCl 4 mg Q4HPRN PRN IV 11/03/24 21:45 Acetaminophen/ Hydrocodone Bitart 1 tab Q6HPRN PRN PO 11/03/24 21:45 11/05/24 21:20 1 TAB Piperacillin Sod/ Tazobactam Sod 100 ml @ 25 mls/hr Q8HR IV 11/03/24 22:00 11/05/24 05:47 25 MLS/HR Diagnostic Test (Pha) 1 strip ACHS 11/04/24 07:00 11/05/24 22:10 1 STRIP Insulin Human Regular ACHS SC 11/04/24 07:00 11/05/24 22:10 4 UNITS Dextrose 50 ml UD PRN IV 11/03/24 22:15 Clopidogrel Bisulfate 75 mg DAILY PO 11/04/24 10:00 11/04/24 10:29 75 MG Rivaroxaban 2.5 mg BID PO 11/04/24 10:00 11/05/24 21:19 2.5 MG Enalapril Maleate 10 mg DAILY PO 11/04/24 10:00 11/04/24 10:28 10 MG Linezolid 300 ml @ 150 mls/hr Q12HR IV 11/04/24 22:00 11/05/24 21:21 150 MLS/HR Examination Physical Examination Constitutional: Patient was alert and oriented to time place and person and does not appear to be in any acute distress Gen - no pallor, no icterus, no cyanosis, no clubbing, no LAD, no edema . Skin - Patients skin is warm and dry. HEENT - normocephalic, atraumatic, moist mucous membranes. Neck - full ROM, no LAD, no JVD Pulmonary - B/L vesicular breath sounds. no crackles , no wheezing, no stridor. cardiovascular - normal S1,S2 heard. no murmurs heard. GI - soft abdomen without tenderness to palpation. no hepatospleenomegaly. Bowel sounds normoactive Neurological - Bilateral upper extremity strength 5/5, bilateral lower extremity strength 3/5, no facial droop, normal speech, no tremor, no sensory deficiets. Extremities- left foot in a sterile dressing s/p surgery laboratory and microbiology Laboratory Tests 11/05/24 06:24 Test 11/05/24 06:24 Range/Units Serum Glucose 116 H 74-106 mg/dL Microbiology Date/Time Source Procedure Growth Status 11/05/24 06:24 Nose MRSA Screen - Final Complete 11/04/24 02:49 Voided Urine Urine Culture - Preliminary Resulted 11/03/24 16:56 Blood Blood Culture - Preliminary NO GROWTH AFTER 48 HOURS OF INCUBATION. Resulted Problem List/Assessment/Plan Problem List/Assessment/Plan # necrotizing infection of the foot # osteomyelitis Left foot MRI shows 1.Wounds of the distal aspects of the 1st and 2nd digits with adjacent soft tissue inflammatory changes, likely cellulitis. There is gas within the soft tissues of the great toe, may be tracking from the wound or due to necrotizing infection. 2.Destructive changes in the distal phalanx of the 2nd digit are suspicious for osteomyelitis. There is T2 hyperintense signal in the proximal phalanx of the great toe without corresponding T1 hypointense signal to suggest osteomyelitis, likely reactive marrow signal changes, although evaluation is limited due to the motion artifact. 3.Suspected osteomyelitis in the distal phalanx of the 2nd digit and possible osteomyelitis of the proximal phalanx of the 2nd digit. 4.Marrow edema in the tibial sesamoid of the 1st metatarsal may be due to sesamoiditis and/or arthritic changes or reactive marrow signal changes. Osteomyelitis can not be completely excluded. - on Zosyn and linezolid IV - lower extremity arterial Doppler showed no evidence of hemodynamically significant stenosis - S/p surgery, tolerated procedure well - Follow up surgery to be done for closure # NSTEMI likely type 2 due to above # CAD Possibly due to underlying infection Patient also had a stent placed on 10/29/2024 Troponins trending down, EKG reviewed, no acute ST/T changes Continue Plavix 75 mg p.o. q.d. and Xarelto 2.5 mg b.i.d. Echo pending # RUSSELL due to VMN Continue IV fluids Avoid nephrotoxic agents # Hyperkalemia Resolved # type 2 diabetes HbA1c 6.3% On mild insulin sliding scale # uncontrolled hypertension - on enalapril 10 mg and nifedipine 30 mg Goals of care discussed with the patient son for over 27 minutes. Full code Case was discussed with Dr. Burnett Plan discussed with: Patient, Daughter My Orders My Orders Orders - ANTHONY LAKHANI Procedure Category Date Status Time Consistent DIET 11/05/24 [facility] Date of Service: Nov 05, 2024 Billing Provider: HUNTER BURNETT MD Common Visit Codes: [id number] INP/OBS CARE(HIGH) ANTHONY LAKHANI Nov 05, 2024 22:24 HUNTER BURNETT MD Nov 06, 2024 15:40
[2024-11-05] MEDS ORDERED: MORPHINE SULFATE INJ 2 MG/ml SYRG IV PRN (22:30)
[2024-11-06] VITALS (8 sets, daily range): BP systolic 117–165; BP diastolic 40–69; PULSE 65–82; RESP 16–18; TEMP 97.7–98; O2SAT 96–100
[2024-11-06 07:26] LABS: Basophils # (auto) 0.1 10 ^3/uL (0-0.2); Basophils % (auto) 0.6 % (0.0-2.0); Eosinophils # (auto) 0.1 10 ^3/uL (0-0.8); Eosinophils % (auto) 0.9 % (0.0-7.0); Hematocrit 29.7 % (36.0-46.0); Hemoglobin 9.6 g/dL (12.2-16.2); Lymphocytes # (auto) 1.7 10 ^3/uL (0.4-5.4); Lymphocytes % (auto) 18.5 % (10.0-50.0); Mean Corpuscular Hemoglobin 28.4 pg (28.0-32.0); Mean Corpuscular Hgb Conc. 32.3 g/dL (32.0-36.0); Monocytes # (auto) 0.8 10 ^3/uL (0-1.3); Monocytes % (auto) 8.7 % (0.0-12.0); Neutrophils # (auto) 6.5 10 ^3/uL (1.6-8.6); Neutrophils % (auto) 71.3 % (37.0-80.0); Platelet Count (auto) 305 10^3/uL (140-450); Red Blood Cells 3.38 10^6/uL (4.0-5.20); Red Cell Distribution Width 15.6 % (11.8-14.3); White Blood Cell 9.1 10^3/uL (4.4-10.8)
[2024-11-06 07:42] LABS: Anion Gap 9 (5-15); Carbon Dioxide 25 mmol/L (20-31); Chloride 102 mmol/L (98-107); Potassium 4.8 mmol/L (3.5-5.1); Sodium 136 mmol/L (136-145)
[2024-11-06 07:43] LABS: Calcium 9.7 mg/dL (8.7-10.4)
[2024-11-06 07:48] LABS: BUN/Creatinine Ratio 13.5 (10.0-20.0); Blood Urea Nitrogen 17 mg/dL (9-23)
[2024-11-06 07:51] LABS: Glucose 131 mg/dL (74-106)
--- NOTE | 2024-11-06 09:15 | DVHOP2 ---
Operative Report - 2 Report Details Date: 11/05/24 Preop Diagnosis: 1. Left foot osteomyelitis 2. Left foot gas gangrene 3. Left foot gangrenous digits 1 & 2 4. Left foot pain Postop Diagnosis: Same as preop Surgeon: Silvina Jones MD Anesthesiologist: See anesthesia Anesthesia: Mac Consent: The patient was informed of the risks and benefits of the procedure. These include but are not limited to complications of anesthesia, postoperative infection, incomplete relief of symptoms, recurrence of symptoms, damage to blood vessels, nerves and tendons, deep venous thrombosis, pulmonary embolism and possible need for repeat surgery in the future. Complications: None Estimated Blood Loss: Minimal Fluids: See anesthesia Findings: Consistent with diagnosis Indications for Surgery: Worsening left foot wound Name of Procedure Performed 1. Left foot I&D to bone (39277) 2. Left foot hallux amputation (83126) 3. Left foot second distal IPJ amputation (57992) 4. Left foot bone biopsy x 2 (25086) 5. Left foot delayed closure (06005) Procedure Details Procedure Details: PRE-PROCEDURE INFORMATION: In the pre-op holding area, the extremity to be operated on was clearly marked and the patient verified correct laterality of the marking. The patient was transferred to the OR table and placed in a supine position. A timeout was performed in which identification of the correct patient, procedure, location, and materials was done. The left foot and leg were prepped and draped in normal sterile fashion. The foot and leg were exsanguinated and the _ tourniquet was inflated to 300 mmHg. DESCRIPTION OF PROCEDURE: Attention was directed to the left where area of fluctuance was noted. An incision was made over this area and was deepened through blunt dissection. The incision was deepened to the level of abscess and bone. Care was taken to the dissection to avoid any neurovascular and tendinous structures. The incision was deepened to the bone, and the abscess appeared to be purulent fluid consistent with pus. The cortices of the bone was then removed with Tato sandoval all necrotic tissue. It was decided at that point that the hallux was not salvageable an amputation was performed using a 15. Blade at the level of the MPJ. Using a 15. Blade the 2nd toe was also amputated at the level of the IPJ. After the abscess was drained, the area was irrigated with 3 L normal saline using cysto tubing. Deep cultures were then obtained from the wound. A bone biopsy was then taken of the left hallux and left distal 2nd digit which was deepened to the muscle belly and tendons. The bone was then sent to pathology to determine the extent of osteomyelitis. The area was then inspected and any areas of tracking, especially along the tendons were also drained. The hallux wound was then dressed with Betadine-soaked gauze and a delayed closure was performed on the 2nd digit with 2-0 nylon. POSTOPERATIVE INFORMATION: The patient tolerated the above noted procedure and anesthesia well and was transferred to the PACU with vital signs stable, and vascular status intact with capillary refill intact to all digits. Patient will return to the floor and continue IV antibiotics. Cultures were taken. Bone bio psy was sent. Patient will return to the OR on Saturday for closure. Specimen: Hallux and distal 2nd toe Condition Good Disposition Still a Patient SILVINA JONES DPM Nov 06, 2024 09:15
[2024-11-06] MEDS: SODIUM CHLORIDE 0.9% 500 ML IV ONE (09:42)
--- NOTE | 2024-11-06 13:26 | DVHPN2 ---
Subjective This is an 89-year-old female who was brought in by EMS from home with chief complain of generalized weakness. She has a past medical history relevant for hypertension, type 2 diabetes, peripheral vascular disease, coronary artery disease status post stent placement on 10/29/2024. History was gathered from family members on patient. 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 She stated that she has been feeling weak. She also stated that she has been seen by vascular surgeon due to peripheral vascular disease and it is soon to be operated. Patient currently denies any chest pain, shortness of breath, lightheadedness, abdominal pain, nausea, vomiting, dizziness, dysuria, urinary urgency or frequency, diarrhea or constipation. Changes from previous H/P or p: No Changes Eyes: No Pain, No Vision change, No Conjunctivae inflammation, No Eyelid inflammation, No Other, No Redness ENT: No Ear pain, No Ear discharge, No Nose pain, No Nose discharge, No Nose congestion, No Mouth pain, No Mouth swelling, No Throat pain, No Throat swelling, No Other Cardiovascular: No Chest Pain, No Palpitations, No Orthopnea, No Paroxysmal Noc. Dyspnea, No Edema, No Lt Headedness, No Other Respiratory: No Cough, No Dry, No Shortness of breath, No SOB with excertion, No Wheezing, No Hemoptysis, No Pleuritic Pain, No Sputum, No Other Gastrointestinal: No Nausea, No Vomiting, No Abdominal Pain, No Diarrhea, No Constipation, No Melena, No Hematochezia, No Other Genitourinary: No Dysuria, No Frequency, No Incontinence, No Hematuria, No Retention, No Other Musculoskeletal: No other, No neck pain, No shoulder pain, No arm pain, No back pain, No hand pain, No leg pain, No foot pain Skin: No Rash; Lesions; No Jaundice, No Bruising, No Other Objective Vitals Vital Signs Date Time Temp Pulse Resp B/P (MAP) Pulse Ox O2 Delivery O2 Flow Rate FiO2 11/06/24 09:41 139/54 11/06/24 08:51 97.7 74 18 99 97.7 11/06/24 08:00 Room Air* 0 21 Intake/Output Intake and Output 11/06/24 07:00 Intake Total 1200 ml Balance 1200 ml Intake Oral 600 ml IV Total 600 ml # Voids 3 Exam DERMATOLOGIC EXAM: - Skin is dry and cool to the touch dry bilaterally. 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 - SEED SORTER is brisk to all digits. - Feet are cool to touch compared to lower legs bilaterally. NEUROLOGIC EXAM: - Normal light touch sensation to the superficial peroneal, deep peroneal, sural, saphenous, and tibial nerve branches. - Protective sensation is diminished as tested with a 5.07 10g [place] bilaterally. MUSCULOSKELETAL EXAM: - No gross deformities - Muscle strength is 5/5 and active motion is pain-free and symmetrical bilaterally - No pain or crepitation with passive range of motion bilaterally to all major pedal joints Medications Current Medications Medications Dose Ordered Sig/Sumanth Route Start Time Stop Time Status Last Admin Dose Admin Ondansetron HCl 4 mg Q4HPRN PRN IV 11/03/24 21:45 Acetaminophen/ Hydrocodone Bitart 1 tab Q6HPRN PRN PO 11/03/24 21:45 11/06/24 06:24 1 TAB Piperacillin Sod/ Tazobactam Sod 100 ml @ 25 mls/hr Q8HR IV 11/03/24 22:00 11/06/24 06:02 25 MLS/HR Diagnostic Test (Pha) 1 strip ACHS 11/04/24 07:00 11/06/24 11:48 1 STRIP Insulin Human Regular ACHS SC 11/04/24 07:00 11/06/24 11:52 4 UNITS Dextrose 50 ml UD PRN IV 11/03/24 22:15 Clopidogrel Bisulfate 75 mg DAILY PO 11/04/24 10:00 11/06/24 09:42 75 MG Rivaroxaban 2.5 mg BID PO 11/04/24 10:00 11/06/24 09:40 2.5 MG Enalapril Maleate 10 mg DAILY PO 11/04/24 10:00 11/06/24 09:41 10 MG Linezolid 300 ml @ 150 mls/hr Q12HR IV 11/04/24 22:00 11/06/24 10:42 150 MLS/HR Morphine Sulfate 2 mg Q8HPRN PRN IV 11/05/24 22:30 Laboratory Results Laboratory Tests 11/06/24 06:23 Chemistry Test 11/06/24 06:23 Calcium Level 9.7 mg/dL (8.7-10.4) Urinalysis Test 11/04/24 02:49 Urine Color Light-yellow (Yellow) Urine Clarity Clear (Clear) Urine pH 6.0 (5.0-9.0) Urine Specific [place] 1.022 (1.001-1.035) Urine Protein Negative (Negative) Urine Ketones Negative (Negative) Urine Blood Negative /uL (Negative) Urine Nitrite Negative (Negative) Urine Bilirubin Negative (Negative) Urine Urobilinogen 2 mg/dL (Negative) H Urine Leukocyte Esterase Negative /uL (Negative) Urine RBC None seen /hpf (0 - 4) Urine WBC 1 /hpf (0 - 5) Urine Squamous Epithelial Cells None seen /hpf (<5) Urine Bacteria None seen /hpf (None Seen) Urine Glucose Normal mg/dL (Normal) Microbiology Microbiology Date/Time Source Procedure Growth Status 11/05/24 06:24 Nose MRSA Screen - Final Complete 11/04/24 02:49 Voided Urine Urine Culture - Preliminary Resulted 11/03/24 16:56 Blood Blood Culture - Preliminary NO GROWTH AFTER 48 HOURS OF INCUBATION. Resulted Assessment/Plan Assessment/Plan ASSESSMENT: Patient is a year old seen on the floor 1 day s/p from an incision drainage PLAN: - The patients chart was reviewed, clinical findings were discussed with the patient, the etiologies of the conditions were discussed in detail, and a treatment plan was agreed to at this time, with both oral and written instructions provided. - reviewed advanced imaging - discussed plan is to perform an incision and drainage and closure on Saturday - patient will be NPO at Saturday midnight - take him to the OR Saturday - patient will return to the OR at a future date for closure - can weightbear as tolerated in postoperative shoe All questions were answered and concerns addressed to the patient's satisfaction. The patient was given the phone number to the clinic and was told how to make contact with the clinic should any concerns or questions arise. Patient understands that if any questions or concerns arise prior to the next appointment, we should be contacted immediately. FOLLOW-UP: Continue to follow while inpatient Plan discussed with: Patient Problem List: (1) Elevated troponin (2) Non-STEMI (non-ST elevated myocardial infarction) (3) Hyperkalemia (4) Generalized weakness (5) Osteomyelitis of ankle and foot (6) Cellulitis of foot (7) Abscess of foot (8) Gangrene of foot Date of Service: Nov 06, 2024 Billing Provider: SILVINA JONES DPM Common Visit Codes: [id number] INP/OBS CARE(MOD) SILVINA JONES DPM Nov 06, 2024 13:26
--- NOTE | 2024-11-06 19:16 | DVHPNRES ---
Progress Note Date Seen: Nov 06, 2024 Resident Creating Document: ANTHONY LAKHANI RESIDENT Medical Necessity Reason Pt with a Central, PICC or Fol: No Subjective Review of Systems Patient seen and examined at the bedside Patient does not report of any acute complaints, no shortness of breath, chest pain, dizziness, palpitations, abdominal pain, nausea, vomiting, dysuria, diarrhea, constipation. Status post amputation day 2 Objective vital signs Vital Sign Date Time Temp Pulse Resp B/P (MAP) Pulse Ox O2 Delivery O2 Flow Rate FiO2 11/06/24 17:00 98.0 75 18 165/69 (101) 96 98.0 11/06/24 08:00 Room Air* 0 21 Total Intake and Output 11/05/24 11/05/24 11/06/24 15:00 23:00 07:00 Intake Total 200 ml 1000 ml Balance 200 ml 1000 ml medications Current Medications Medications Dose Ordered Sig/Sumanth Route Start Time Stop Time Status Last Admin Dose Admin Ondansetron HCl 4 mg Q4HPRN PRN IV 11/03/24 21:45 Acetaminophen/ Hydrocodone Bitart 1 tab Q6HPRN PRN PO 11/03/24 21:45 11/06/24 18:38 1 TAB Piperacillin Sod/ Tazobactam Sod 100 ml @ 25 mls/hr Q8HR IV 11/03/24 22:00 11/06/24 15:31 25 MLS/HR Diagnostic Test (Pha) 1 strip ACHS 11/04/24 07:00 11/06/24 17:25 1 STRIP Insulin Human Regular ACHS SC 11/04/24 07:00 11/06/24 17:27 2 UNITS Dextrose 50 ml UD PRN IV 11/03/24 22:15 Clopidogrel Bisulfate 75 mg DAILY PO 11/04/24 10:00 11/06/24 09:42 75 MG Rivaroxaban 2.5 mg BID PO 11/04/24 10:00 11/06/24 09:40 2.5 MG Enalapril Maleate 10 mg DAILY PO 11/04/24 10:00 11/06/24 09:41 10 MG Linezolid 300 ml @ 150 mls/hr Q12HR IV 11/04/24 22:00 11/06/24 10:42 150 MLS/HR Morphine Sulfate 2 mg Q8HPRN PRN IV 11/05/24 22:30 Examination Physical Examination Constitutional: Patient was alert and oriented to time place and person and does not appear to be in any acute distress Gen - no pallor, no icterus, no cyanosis, no clubbing, no LAD, no edema . Skin - Patients skin is warm and dry. HEENT - normocephalic, atraumatic, moist mucous membranes. Neck - full ROM, no LAD, no JVD Pulmonary - B/L vesicular breath sounds. no crackles , no wheezing, no stridor. cardiovascular - normal S1,S2 heard. no murmurs heard. GI - soft abdomen without tenderness to palpation. no hepatospleenomegaly. Bowel sounds normoactive Neurological - Bilateral upper extremity strength 5/5, bilateral lower extremity strength 3/5, no facial droop, normal speech, no tremor, no sensory deficiets. Extremities- left foot in a sterile dressing s/p surgery laboratory and microbiology Laboratory Tests 11/06/24 06:23 Test 11/06/24 06:23 Range/Units Serum Glucose 131 H 74-106 mg/dL Microbiology Date/Time Source Procedure Growth Status 11/05/24 06:24 Nose MRSA Screen - Final Complete 11/04/24 02:49 Voided Urine Urine Culture - Final Complete 11/03/24 16:56 Blood Blood Culture - Preliminary NO GROWTH AFTER 72 HOURS OF INCUBATION. Resulted Problem List/Assessment/Plan Problem List/Assessment/Plan # necrotizing infection of the foot # osteomyelitis Left foot MRI shows 1.Wounds of the distal aspects of the 1st and 2nd digits with adjacent soft tissue inflammatory changes, likely cellulitis. There is gas within the soft tissues of the great toe, may be tracking from the wound or due to necrotizing infection. 2.Destructive changes in the distal phalanx of the 2nd digit are suspicious for osteomyelitis. There is T2 hyperintense signal in the proximal phalanx of the great toe without corresponding T1 hypointense signal to suggest osteomyelitis, likely reactive marrow signal changes, although evaluation is limited due to the motion artifact. 3.Suspected osteomyelitis in the distal phalanx of the 2nd digit and possible osteomyelitis of the proximal phalanx of the 2nd digit. 4.Marrow edema in the tibial sesamoid of the 1st metatarsal may be due to sesamoiditis and/or arthritic changes or reactive marrow signal changes. Osteomyelitis can not be completely excluded. - on Zosyn and linezolid IV - lower extremity arterial Doppler showed no evidence of hemodynamically significant stenosis - S/p surgery, tolerated procedure well - Follow up surgery to be done for closure on Saturday # NSTEMI likely type 2 due to above # CAD Possibly due to underlying infection Patient also had a stent placed on 10/29/2024 Troponins trending down, EKG reviewed, no acute ST/T changes Continue Plavix 75 mg p.o. q.d. and Xarelto 2.5 mg b.i.d. Echo pending # RUSSELL due to VMN Continue IV fluids Avoid nephrotoxic agents # Hyperkalemia Resolved # type 2 diabetes HbA1c 6.3% On mild insulin sliding scale # uncontrolled hypertension - on enalapril 10 mg Goals of care discussed with the patient and the family for over 27 minutes. Full code Case was discussed with Dr. Burnett Plan discussed with: Patient, Daughter, Son My Orders My Orders Orders - ANTHONY LAKHANI Procedure Category Date Status Time Morphine Sulfate PHA 11/05/24 In Process Injection 22:30 Communication Order ORDERS 11/06/24 Transmitted 08:05 Code Status CODE 11/06/24 Transmitted 08:05 Date of Service: Nov 06, 2024 Billing Provider: HUNTER BURNETT MD Common Visit Codes: [id number] INP/OBS CARE(HIGH) ANTHONY LAKHANI RESIDENT Nov 06, 2024 19:16 HUNTER BURNETT MD Nov 06, 2024 21:11
[2024-11-06] MEDS ORDERED: INSULIN LANTUS (GLARGINE) 1 /0.01ml (100units/ml) SC SCH (22:00)
[2024-11-07] VITALS (8 sets, daily range): BP systolic 108–149; BP diastolic 42–64; PULSE 68–114; RESP 16–18; TEMP 98–99.4; O2SAT 92–100
[2024-11-07 06:44] LABS: Basophils # (auto) 0 10 ^3/uL (0-0.2); Basophils % (auto) 0.4 % (0.0-2.0); Eosinophils # (auto) 0 10 ^3/uL (0-0.8); Eosinophils % (auto) 0.2 % (0.0-7.0); Hematocrit 27.2 % (36.0-46.0); Lymphocytes # (auto) 1.2 10 ^3/uL (0.4-5.4); Lymphocytes % (auto) 12.8 % (10.0-50.0); Mean Corpuscular Hemoglobin 28.9 pg (28.0-32.0); Mean Corpuscular Volume 87.5 fL (80.0-100.0); Monocytes # (auto) 0.7 10 ^3/uL (0-1.3); Monocytes % (auto) 8.1 % (0.0-12.0); Neutrophils # (auto) 7.2 10 ^3/uL (1.6-8.6); Neutrophils % (auto) 78.5 % (37.0-80.0); Platelet Count (auto) 258 10^3/uL (140-450); Red Blood Cells 3.11 10^6/uL (4.0-5.20); Red Cell Distribution Width 15.4 % (11.8-14.3); White Blood Cell 9.2 10^3/uL (4.4-10.8)
[2024-11-07 06:48] LABS: Anion Gap 8 (5-15); Calcium 9.3 mg/dL (8.7-10.4); Carbon Dioxide 24 mmol/L (20-31); Chloride 103 mmol/L (98-107); Potassium 4.1 mmol/L (3.5-5.1)
[2024-11-07 06:54] LABS: BUN/Creatinine Ratio 11.2 (10.0-20.0); Blood Urea Nitrogen 13 mg/dL (9-23)
[2024-11-07 06:57] LABS: Glucose 133 mg/dL (74-106); Sodium 135 mmol/L (136-145)
[2024-11-07] MEDS: ASPirin 81 mg TAB PO ONE (12:13)
--- NOTE | 2024-11-07 14:41 | DVHPNRES ---
Progress Note Date Seen: Nov 07, 2024 Resident Creating Document: JHMaldonadoJTaniaANTHONY RESIDENT Medical Necessity Reason Pt with a Central, PICC or Fol: No Subjective Review of Systems Patient seen and examined at the bedside Patient reports of moderate pain in the left foot at the site of amputation Patient does not report of any acute complaints, no shortness of breath, chest pain, dizziness, palpitations, abdominal pain, nausea, vomiting, dysuria, diarrhea, constipation. Status post amputation day 3 Objective vital signs Vital Sign Date Time Temp Pulse Resp B/P (MAP) Pulse Ox O2 Delivery O2 Flow Rate FiO2 11/07/24 09:34 114/42 11/07/24 09:00 98.0 68 16 99 98.0 11/07/24 08:00 Room Air* 0 21 Total Intake and Output 11/06/24 11/06/24 11/07/24 15:00 23:00 07:00 Intake Total 300 ml 900 ml 400 ml Output Total 500 ml Balance 300 ml 900 ml -100 ml medications Current Medications Medications Dose Ordered Sig/Sumanth Route Start Time Stop Time Status Last Admin Dose Admin Ondansetron HCl 4 mg Q4HPRN PRN IV 11/03/24 21:45 Acetaminophen/ Hydrocodone Bitart 1 tab Q6HPRN PRN PO 11/03/24 21:45 11/07/24 05:14 1 TAB Piperacillin Sod/ Tazobactam Sod 100 ml @ 25 mls/hr Q8HR IV 11/03/24 22:00 11/07/24 14:16 25 MLS/HR Diagnostic Test (Pha) 1 strip ACHS 11/04/24 07:00 11/07/24 11:30 1 STRIP Insulin Human Regular ACHS SC 11/04/24 07:00 11/07/24 12:21 6 UNITS Dextrose 50 ml UD PRN IV 11/03/24 22:15 Clopidogrel Bisulfate 75 mg DAILY PO 11/04/24 10:00 11/07/24 09:31 75 MG Rivaroxaban 2.5 mg BID PO 11/04/24 10:00 11/07/24 09:34 2.5 MG Enalapril Maleate 10 mg DAILY PO 11/04/24 10:00 11/07/24 09:34 10 MG Linezolid 300 ml @ 150 mls/hr Q12HR IV 11/04/24 22:00 11/07/24 09:34 150 MLS/HR Morphine Sulfate 2 mg Q8HPRN PRN IV 11/05/24 22:30 Aspirin 81 mg DAILY PO 11/08/24 10:00 Examination Physical Examination Constitutional: Patient was alert and oriented to time place and person and does not appear to be in any acute distress Gen - no pallor, no icterus, no cyanosis, no clubbing, no LAD, no edema . Skin - Patients skin is warm and dry. HEENT - normocephalic, atraumatic, moist mucous membranes. Neck - full ROM, no LAD, no JVD Pulmonary - B/L vesicular breath sounds. no crackles , no wheezing, no stridor. cardiovascular - normal S1,S2 heard. no murmurs heard. GI - soft abdomen without tenderness to palpation. no hepatospleenomegaly. Bowel sounds normoactive Neurological - Bilateral upper extremity strength 5/5, bilateral lower extremity strength 3/5, no facial droop, normal speech, no tremor, no sensory deficiets. Extremities- left foot in a sterile dressing s/p surgery laboratory and microbiology Laboratory Tests 11/07/24 05:51 Test 11/07/24 05:51 Range/Units Serum Glucose 133 H 74-106 mg/dL Microbiology Date/Time Source Procedure Growth Status 11/05/24 06:24 Nose MRSA Screen - Final Complete 11/04/24 02:49 Voided Urine Urine Culture - Final Complete 11/03/24 16:56 Blood Blood Culture - Preliminary NO GROWTH AFTER 72 HOURS OF INCUBATION. Resulted Problem List/Assessment/Plan Problem List/Assessment/Plan # necrotizing infection of the foot # osteomyelitis Left foot MRI shows 1.Wounds of the distal aspects of the 1st and 2nd digits with adjacent soft tissue inflammatory changes, likely cellulitis. There is gas within the soft tissues of the great toe, may be tracking from the wound or due to necrotizing infection. 2.Destructive changes in the distal phalanx of the 2nd digit are suspicious for osteomyelitis. There is T2 hyperintense signal in the proximal phalanx of the great toe without corresponding T1 hypointense signal to suggest osteomyelitis, likely reactive marrow signal changes, although evaluation is limited due to the motion artifact. 3.Suspected osteomyelitis in the distal phalanx of the 2nd digit and possible osteomyelitis of the proximal phalanx of the 2nd digit. 4.Marrow edema in the tibial sesamoid of the 1st metatarsal may be due to sesamoiditis and/or arthritic changes or reactive marrow signal changes. Osteomyelitis can not be completely excluded. - on Zosyn and linezolid IV - lower extremity arterial Doppler showed no evidence of hemodynamically significant stenosis - S/p surgery, tolerated procedure well - Follow up surgery to be done for closure on Saturday pain control with norco for moderate and dilaudid for severe pain # NSTEMI likely type 2 due to above # CAD Possibly due to underlying infection Patient also had a stent placed on 10/29/2024 Troponins trending down, EKG reviewed, no acute ST/T changes Continue Plavix 75 mg p.o. q.d. and Xarelto 2.5 mg b.i.d. 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 # RUSSELL due to VMN improving Avoid nephrotoxic agents # Hyperkalemia Resolved # type 2 diabetes HbA1c 6.3% On mild insulin sliding scale # uncontrolled hypertension - on enalapril 10 mg Goals of care discussed with the patient and the family for over 27 minutes. Full code Case was discussed with Dr. Barakat Plan discussed with: Patient My Orders My Orders Orders - ANTHONY LAKHANI Procedure Category Date Status Time Transfer Orders XFER 11/07/24 Transmitted 09:59 Discontinue Tele BOBBY 11/07/24 In Process 09:59 Aspirin Tablet PHA 11/08/24 In Process 10:00 Hydromorphone Hcl Inj PHA 11/07/24 Transmitted (Dilaudid Innjecti 14:45 Date of Service: Nov 07, 2024 Billing Provider: HAILEY BARAKAT MD Common Visit Codes: [id number] INP/OBS CARE(HIGH) ANTHONY LAKHANI RESIDENT Nov 07, 2024 14:41 HAILEY BARAKAT MD Nov 07, 2024 23:13
[2024-11-07] MEDS ORDERED: HYDROMORPHONE HCL 1 MG/ML INJ IV PRN (14:45)
[2024-11-08] VITALS (7 sets, daily range): BP systolic 94–128; BP diastolic 34–82; PULSE 68–89; RESP 16–21; TEMP 97.9–98.6; O2SAT 96–99
[2024-11-08 07:00] LABS: Anion Gap 8 (5-15); Carbon Dioxide 24 mmol/L (20-31); Chloride 103 mmol/L (98-107); Potassium 4.3 mmol/L (3.5-5.1)
[2024-11-08 07:01] LABS: Calcium 9.2 mg/dL (8.7-10.4)
[2024-11-08 07:06] LABS: BUN/Creatinine Ratio 11.9 (10.0-20.0); Blood Urea Nitrogen 15 mg/dL (9-23)
[2024-11-08 07:07] LABS: Glucose 127 mg/dL (74-106); Sodium 135 mmol/L (136-145)
[2024-11-08] MEDS: BUPIVACAINE HCL 0.25% P/F 10 ML VIAL ONE (07:25)
[2024-11-08] MEDS: ASPirin 81 mg TAB PO SCH (09:16)
--- NOTE | 2024-11-08 13:49 | DVHPN2 ---
Subjective The patient is seen and examined at bedside. Remained weak. Reviewed: Care Plan, H&P, Labs, Medications, Previous Orders, Radiology Changes from previous H/P or p: No Changes Eyes: No Pain, No Vision change, No Conjunctivae inflammation, No Eyelid inflammation, No Other, No Redness ENT: No Ear pain, No Ear discharge, No Nose pain, No Nose discharge, No Nose congestion, No Mouth pain, No Mouth swelling, No Throat pain, No Throat swelling, No Other Cardiovascular: No Chest Pain, No Palpitations, No Orthopnea, No Paroxysmal Noc. Dyspnea, No Edema, No Lt Headedness, No Other Respiratory: No Cough, No Dry, No Shortness of breath, No SOB with excertion, No Wheezing, No Hemoptysis, No Pleuritic Pain, No Sputum, No Other Gastrointestinal: No Nausea, No Vomiting, No Abdominal Pain, No Diarrhea, No Constipation, No Melena, No Hematochezia, No Other Genitourinary: No Dysuria, No Frequency, No Incontinence, No Hematuria, No Retention, No Other Musculoskeletal: No other, No neck pain, No shoulder pain, No arm pain, No back pain, No hand pain, No leg pain, No foot pain Skin: No Rash; Lesions; No Jaundice, No Bruising, No Other Objective Vitals Vital Signs Date Time Temp Pulse Resp B/P (MAP) Pulse Ox O2 Delivery O2 Flow Rate FiO2 11/08/24 09:17 107/41 11/08/24 09:00 98.6 69 16 99 98.6 11/08/24 08:10 Room Air* 0 21 Intake/Output Intake and Output 11/08/24 07:00 Intake Total 1650 ml Output Total 2 ml Balance 1648 ml Intake Oral 950 ml IV Total 700 ml Stool Total 2 ml # Voids 3 # Bowel Movements 1 General Appearance: Alert, No acute distress HEENT: Atraumatic, PERRLA, EOMI, Mucous membr. moist/pink Neck: Supple Lungs: Clear to auscultation, Normal air movement Cardiovascular: Regular rate, Normal S1, Normal S2, No murmurs, Gallops, Rubs Abdomen: Normal bowel sounds, Soft, No tenderness, No hepatospenomegaly, No masses Neuro: Cranial nerves 3-12 NL Psych/Mental Status: Mental status NL Medications Current Medications Medications Dose Ordered Sig/Sumanth Route Start Time Stop Time Status Last Admin Dose Admin Ondansetron HCl 4 mg Q4HPRN PRN IV 11/03/24 21:45 Acetaminophen/ Hydrocodone Bitart 1 tab Q6HPRN PRN PO 11/03/24 21:45 11/07/24 20:24 1 TAB Piperacillin Sod/ Tazobactam Sod 100 ml @ 25 mls/hr Q8HR IV 11/03/24 22:00 11/08/24 05:25 25 MLS/HR Diagnostic Test (Pha) 1 strip ACHS 11/04/24 07:00 11/08/24 11:40 1 STRIP Insulin Human Regular ACHS SC 11/04/24 07:00 11/08/24 12:14 3 UNITS Dextrose 50 ml UD PRN IV 11/03/24 22:15 Clopidogrel Bisulfate 75 mg DAILY PO 11/04/24 10:00 11/08/24 09:18 75 MG Rivaroxaban 2.5 mg BID PO 11/04/24 10:00 11/08/24 09:18 2.5 MG Enalapril Maleate 10 mg DAILY PO 11/04/24 10:00 11/08/24 09:17 10 MG Linezolid 300 ml @ 150 mls/hr Q12HR IV 11/04/24 22:00 11/08/24 09:18 150 MLS/HR Morphine Sulfate 2 mg Q8HPRN PRN IV 11/05/24 22:30 Hold Aspirin 81 mg DAILY PO 11/08/24 10:00 11/08/24 09:16 81 MG Hydromorphone HCl 0.5 mg Q6HPRN PRN IV 11/07/24 14:45 Laboratory Results Laboratory Tests 11/07/24 05:51 11/08/24 06:01 Chemistry Test 11/08/24 06:01 Calcium Level 9.2 mg/dL (8.7-10.4) Urinalysis Test 11/04/24 02:49 Urine Color Light-yellow (Yellow) Urine Clarity Clear (Clear) Urine pH 6.0 (5.0-9.0) Urine Specific [place] 1.022 (1.001-1.035) Urine Protein Negative (Negative) Urine Ketones Negative (Negative) Urine Blood Negative /uL (Negative) Urine Nitrite Negative (Negative) Urine Bilirubin Negative (Negative) Urine Urobilinogen 2 mg/dL (Negative) H Urine Leukocyte Esterase Negative /uL (Negative) Urine RBC None seen /hpf (0 - 4) Urine WBC 1 /hpf (0 - 5) Urine Squamous Epithelial Cells None seen /hpf (<5) Urine Bacteria None seen /hpf (None Seen) Urine Glucose Normal mg/dL (Normal) Microbiology Microbiology Date/Time Source Procedure Growth Status 11/05/24 06:24 Nose MRSA Screen - Final Complete 11/04/24 02:49 Voided Urine Urine Culture - Final Complete 11/03/24 16:56 Blood Blood Culture - Preliminary NO GROWTH AFTER 72 HOURS OF INCUBATION. Resulted Labs and/or images reviewed: Labs reviewed by me Assessment/Plan Assessment/Plan # necrotizing infection of the foot # osteomyelitis Left foot MRI shows 1.Wounds of the distal aspects of the 1st and 2nd digits with adjacent soft tissue inflammatory changes, likely cellulitis. There is gas within the soft tissues of the great toe, may be tracking from the wound or due to necrotizing infection. 2.Destructive changes in the distal phalanx of the 2nd digit are suspicious for osteomyelitis. There is T2 hyperintense signal in the proximal phalanx of the great toe without corresponding T1 hypointense signal to suggest osteomyelitis, likely reactive marrow signal changes, although evaluation is limited due to the motion artifact. 3.Suspected osteomyelitis in the distal phalanx of the 2nd digit and possible osteomyelitis of the proximal phalanx of the 2nd digit. 4.Marrow edema in the tibial sesamoid of the 1st metatarsal may be due to sesamoiditis and/or arthritic changes or reactive marrow signal changes. Osteomyelitis can not be completely excluded. - on Zosyn and linezolid IV - lower extremity arterial Doppler showed no evidence of hemodynamically significant stenosis - S/p surgery, tolerated procedure well - Follow up surgery to be done for closure on Saturday pain control with norco for moderate and dilaudid for severe pain # NSTEMI likely type 2 due to above # CAD Possibly due to underlying infection Patient also had a stent placed on 10/29/2024 Troponins trending down, EKG reviewed, no acute ST/T changes Continue Plavix 75 mg p.o. q.d. and Xarelto 2.5 mg b.i.d. 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 # RUSSELL due to VMN improving Avoid nephrotoxic agents # Hyperkalemia Resolved # type 2 diabetes HbA1c 6.3% On mild insulin sliding scale # uncontrolled hypertension - on enalapril 10 mg Continuing current management. This medical document was created using an electronic medical record system with [employer] direct computerized dictation system. Although this document has been carefully reviewed, there may still be some phonetic and typographical errors. These areas are purely typographical due to imperfections of the software programs, and do not reflect any compromise in the patient's medical care. Plan discussed with: Patient Date of Service: Nov 08, 2024 Billing Provider: HAILEY MACKAY MD Common Visit Codes: [id number] INP/OBS CARE(HIGH) HAILEY MACKAY MD Nov 08, 2024 13:49
[2024-11-09 01:00] VITALS: BP 107/37; PULSE 69; RESP 17; TEMP 98.2; O2SAT 95
[2024-11-09 05:00] VITALS: BP_SYST 117; BP_SYST 119; BP_DIAS 35; BP_DIAS 70; PULSE 73; PULSE 81; RESP 16; TEMP 98; TEMP 98.3; O2SAT 97; O2SAT 99
[2024-11-09 08:00] VITALS: PULSE 75; RESP 17; O2SAT 98
[2024-11-09 09:00] VITALS: BP 129/61; PULSE 72; RESP 17; TEMP 98.4; O2SAT 99
--- NOTE | 2024-11-09 09:47 | DVHPN2 ---
Subjective This is an 89-year-old female who was brought in by EMS from home with chief complain of generalized weakness. She has a past medical history relevant for hypertension, type 2 diabetes, peripheral vascular disease, coronary artery disease status post stent placement on 10/29/2024. History was gathered from family members on patient. 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 She stated that she has been feeling weak. She also stated that she has been seen by vascular surgeon due to peripheral vascular disease and it is soon to be operated. Patient currently denies any chest pain, shortness of breath, lightheadedness, abdominal pain, nausea, vomiting, dizziness, dysuria, urinary urgency or frequency, diarrhea or constipation. Reviewed: Care Plan, H&P, Labs, Medications, Previous Orders, Radiology Changes from previous H/P or p: No Changes Eyes: No Pain, No Vision change, No Conjunctivae inflammation, No Eyelid inflammation, No Other, No Redness ENT: No Ear pain, No Ear discharge, No Nose pain, No Nose discharge, No Nose congestion, No Mouth pain, No Mouth swelling, No Throat pain, No Throat swelling, No Other Cardiovascular: No Chest Pain, No Palpitations, No Orthopnea, No Paroxysmal Noc. Dyspnea, No Edema, No Lt Headedness, No Other Respiratory: No Cough, No Dry, No Shortness of breath, No SOB with excertion, No Wheezing, No Hemoptysis, No Pleuritic Pain, No Sputum, No Other Gastrointestinal: No Nausea, No Vomiting, No Abdominal Pain, No Diarrhea, No Constipation, No Melena, No Hematochezia, No Other Genitourinary: No Dysuria, No Frequency, No Incontinence, No Hematuria, No Retention, No Other Musculoskeletal: No other, No neck pain, No shoulder pain, No arm pain, No back pain, No hand pain, No leg pain, No foot pain Skin: No Rash; Lesions; No Jaundice, No Bruising, No Other Objective Vitals Vital Signs Date Time Temp Pulse Resp B/P (MAP) Pulse Ox O2 Delivery O2 Flow Rate FiO2 11/09/24 09:00 98.4 72 17 129/61 (83) 99 98.4 11/08/24 20:00 Room Air* 0 21 Intake/Output Intake and Output 11/09/24 07:00 Intake Total 1800 ml Balance 1800 ml Intake Oral 1000 ml IV Total 800 ml # Voids 4 # Bowel Movements 1 Exam DERMATOLOGIC EXAM: - Skin is dry and cool to the touch dry bilaterally. 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 - Feet are cool to touch compared to lower legs bilaterally. NEUROLOGIC EXAM: - Normal light touch sensation to the superficial peroneal, deep peroneal, sural, saphenous, and tibial nerve branches. - Protective sensation is diminished as tested with a 5.07 10g [place] bilaterally. MUSCULOSKELETAL EXAM: - No gross deformities - Muscle strength is 5/5 and active motion is pain-free and symmetrical bilaterally - No pain or crepitation with passive range of motion bilaterally to all major pedal joints General Appearance: Alert, No acute distress HEENT: Atraumatic, PERRLA, EOMI, Mucous membr. moist/pink Neck: Supple Lungs: Clear to auscultation, Normal air movement Cardiovascular: Regular rate, Normal S1, Normal S2, No murmurs, Gallops, Rubs Abdomen: Normal bowel sounds, Soft, No tenderness, No hepatospenomegaly, No masses Neuro: Cranial nerves 3-12 NL Psych/Mental Status: Mental status NL Medications Current Medications Medications Dose Ordered Sig/Sumanth Route Start Time Stop Time Status Last Admin Dose Admin Ondansetron HCl 4 mg Q4HPRN PRN IV 11/03/24 21:45 Acetaminophen/ Hydrocodone Bitart 1 tab Q6HPRN PRN PO 11/03/24 21:45 11/08/24 19:59 1 TAB Piperacillin Sod/ Tazobactam Sod 100 ml @ 25 mls/hr Q8HR IV 11/03/24 22:00 11/09/24 05:42 25 MLS/HR Diagnostic Test (Pha) 1 strip ACHS 11/04/24 07:00 11/09/24 06:02 1 STRIP Insulin Human Regular ACHS SC 11/04/24 07:00 11/08/24 21:29 4 UNITS Dextrose 50 ml UD PRN IV 11/03/24 22:15 Clopidogrel Bisulfate 75 mg DAILY PO 11/04/24 10:00 11/08/24 09:18 75 MG Rivaroxaban 2.5 mg BID PO 11/04/24 10:00 11/08/24 21:16 2.5 MG Enalapril Maleate 10 mg DAILY PO 11/04/24 10:00 11/08/24 09:17 10 MG Linezolid 300 ml @ 150 mls/hr Q12HR IV 11/04/24 22:00 11/08/24 20:48 150 MLS/HR Morphine Sulfate 2 mg Q8HPRN PRN IV 11/05/24 22:30 Hold Aspirin 81 mg DAILY PO 11/08/24 10:00 11/08/24 09:16 81 MG Hydromorphone HCl 0.5 mg Q6HPRN PRN IV 11/07/24 14:45 Laboratory Results Laboratory Tests 11/07/24 05:51 11/08/24 06:01 Urinalysis Test 11/04/24 02:49 Urine Color Light-yellow (Yellow) Urine Clarity Clear (Clear) Urine pH 6.0 (5.0-9.0) Urine Specific [place] 1.022 (1.001-1.035) Urine Protein Negative (Negative) Urine Ketones Negative (Negative) Urine Blood Negative /uL (Negative) Urine Nitrite Negative (Negative) Urine Bilirubin Negative (Negative) Urine Urobilinogen 2 mg/dL (Negative) H Urine Leukocyte Esterase Negative /uL (Negative) Urine RBC None seen /hpf (0 - 4) Urine WBC 1 /hpf (0 - 5) Urine Squamous Epithelial Cells None seen /hpf (<5) Urine Bacteria None seen /hpf (None Seen) Urine Glucose Normal mg/dL (Normal) Microbiology Microbiology Date/Time Source Procedure Growth Status 11/05/24 06:24 Nose MRSA Screen - Final Complete 11/04/24 02:49 Voided Urine Urine Culture - Final Complete 11/03/24 16:56 Blood Blood Culture - Final NO GROWTH AFTER 5 DAYS OF INCUBATION. Complete Assessment/Plan Assessment/Plan ASSESSMENT: Patient is a year old seen on the floor 3 day s/p from an incision drainage PLAN: - The patients chart was reviewed, clinical findings were discussed with the patient, the etiologies of the conditions were discussed in detail, and a treatment plan was agreed to at this time, with both oral and written instructions provided. - reviewed advanced imaging - discussed plan is to perform an incision and drainage and closure on Saturday - patient will be NPO at Saturday midnight - take him to the OR Saturday - patient will return to the OR at a future date for closure - can weightbear as tolerated in postoperative shoe All questions were answered and concerns addressed to the patient's satisfaction. The patient was given the phone number to the clinic and was told how to make contact with the clinic should any concerns or questions arise. Patient understands that if any questions or concerns arise prior to the next appointment, we should be contacted immediately. FOLLOW-UP: Continue to follow while inpatient Plan discussed with: Patient My Orders Orders - SILVINA JONES DPM Procedure Category Date Status Time Npo After Midnight DIET 11/08/24 Transmitted Lunch Obtain Consent For: ORDERS 11/08/24 Transmitted 09:59 Problem List: (1) Elevated troponin (2) Non-STEMI (non-ST elevated myocardial infarction) (3) Hyperkalemia (4) Generalized weakness (5) Osteomyelitis of ankle and foot (6) Cellulitis of foot (7) Abscess of foot (8) Gangrene of foot Date of Service: Nov 09, 2024 Billing Provider: SILVINA JONES DPM Common Visit Codes: [id number] INP/OBS CARE(MOD) SILVINA JONES DPM Nov 09, 2024 09:47
[2024-11-09] MEDS ORDERED: MIDAZOLAM HCL 2MG/2ML 2ml VIAL (1mg/ml) ONE (11:44)
[2024-11-09] MEDS ORDERED: GLYCOPYRROLATE 0.2 MG/ML 1ML VIAL ONE (11:45)
[2024-11-09] MEDS ORDERED: PROPOFOL 10 MG/ML 20 ML IV ONE (11:45)
[2024-11-09] MEDS ORDERED: ONDANSETRON HCL 4 MG/2 ML VIAL ONE (11:46)
--- NOTE | 2024-11-09 12:10 | DVHOP2 ---
Operative Report - 2 Report Details Date: 11/09/24 Preop Diagnosis: 1. Left foot osteomyelitis 2. Left foot gas gangrene 3. Left foot gangrenous digits 1 & 2 4. Left foot pain Postop Diagnosis: Same as preop Surgeon: Silvina Jones MD Anesthesiologist: See anesthesia Anesthesia: Mac Consent: The patient was informed of the risks and benefits of the procedure. These include but are not limited to complications of anesthesia, postoperative infection, incomplete relief of symptoms, recurrence of symptoms, damage to blood vessels, nerves and tendons, deep venous thrombosis, pulmonary embolism and possible need for repeat surgery in the future. Complications: None Estimated Blood Loss: Minimal Fluids: See anesthesia Findings: Consistent with diagnosis Indications for Surgery: Worsening left foot wound Name of Procedure Performed 1. Left foot I&D to bone (27545) 2. 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 Left foot second distal IPJ amputation (24228) 4. Left foot bone biopsy x 2 (45180) 5. Left foot delayed closure (10700) Procedure Details Procedure Details: PRE-PROCEDURE INFORMATION: In the pre-op holding area, the extremity to be operated on was clearly marked and the patient verified correct laterality of the marking. The patient was transferred to the OR table and placed in a supine position. A timeout was performed in which identification of the correct patient, procedure, location, and materials was done. The left foot and leg were prepped and draped in normal sterile fashion. The foot and leg were exsanguinated and the _ tourniquet was inflated to 300 mmHg. DESCRIPTION OF PROCEDURE: Attention was directed to the left foot where previous amputation was performed. An incision was made over this area and was deepened through blunt dissection. The incision was deepened to the level of abscess and bone. Care was taken to the dissection to avoid any neurovascular and tendinous structures. The incision was deepened to the bone, and the abscess appeared to be purulent fluid consistent with pus. The cortices of the bone was then removed with Tato an all necrotic tissue. After the abscess was drained, the area was irrigated with 3 L normal saline using cysto tubing. A delayed closure was then performed using 2-0 nylon after was deemed appropriate with no longer concern for infection. POSTOPERATIVE INFORMATION: The patient tolerated the above noted procedure and anesthesia well and was transferred to the PACU with vital signs stable, and vascular status intact with capillary refill intact to all digits. Patient will return to the floor continue IV antibiotics. Patient will need 6 weeks of IV antibiotics. Patient can discharge when deemed medically stable. Specimen: Hallux and distal 2nd toe Condition Good Disposition Still a Patient SILVINA JONES DPM Nov 09, 2024 12:10
[2024-11-09] MEDS ORDERED: ACCU-CHEK COMFORT CURVE STRIP VI ONE (12:15)
[2024-11-09] MEDS ORDERED: HYDROmorphone HCL 2 MG/ML VL/or syr IV PRN (12:15)
[2024-11-09] MEDS ORDERED: KETAMINE 50mg/ML 1ml syringe IV ONE (13:31)
[2024-11-09 20:00] VITALS: O2SAT 98
[2024-11-09] MEDS: SODIUM CHLORIDE 0.9% 500 ML IV ONE (20:15)
[2024-11-09 21:00] VITALS: BP 144/52; PULSE 98; RESP 16; TEMP 98.4; O2SAT 97
--- NOTE | 2024-11-09 21:23 | DVHPNRES ---
Progress Note Date Seen: Nov 09, 2024 Resident Creating Document: ANTHONY LAKHANI RESIDENT Medical Necessity Reason Pt with a Central, PICC or Fol: No Subjective Review of Systems Patient seen and examined at the bedside Patient reports of moderate pain in the left foot at the site of amputation Patient does not report of any acute complaints, no shortness of breath, chest pain, dizziness, palpitations, abdominal pain, nausea, vomiting, dysuria, diarrhea, constipation. Status post amputation day 3, s/p closure of wound Objective vital signs Vital Sign Date Time Temp Pulse Resp B/P (MAP) Pulse Ox O2 Delivery O2 Flow Rate FiO2 11/09/24 12:23 83 22 129/45 (73) 96 11/09/24 12:15 Room Air 11/09/24 12:08 97.6 97.6 11/09/24 12:08 8.0 11/09/24 08:00 21 Total Intake and Output 11/08/24 11/08/24 11/09/24 15:00 23:00 07:00 Intake Total 400 ml 1300 ml 100 ml Balance 400 ml 1300 ml 100 ml medications Current Medications Medications Dose Ordered Sig/Sumanth Route Start Time Stop Time Status Last Admin Dose Admin Ondansetron HCl 4 mg Q4HPRN PRN IV 11/03/24 21:45 Acetaminophen/ Hydrocodone Bitart 1 tab Q6HPRN PRN PO 11/03/24 21:45 11/09/24 20:14 1 TAB Piperacillin Sod/ Tazobactam Sod 100 ml @ 25 mls/hr Q8HR IV 11/03/24 22:00 11/09/24 21:14 25 MLS/HR Diagnostic Test (Pha) 1 strip ACHS 11/04/24 07:00 11/09/24 20:15 1 STRIP Insulin Human Regular ACHS SC 11/04/24 07:00 11/09/24 20:19 4 UNITS Dextrose 50 ml UD PRN IV 11/03/24 22:15 Clopidogrel Bisulfate 75 mg DAILY PO 11/04/24 10:00 11/09/24 19:43 75 MG Rivaroxaban 2.5 mg BID PO 11/04/24 10:00 11/09/24 21:14 2.5 MG Enalapril Maleate 10 mg DAILY PO 11/04/24 10:00 11/08/24 09:17 10 MG Aspirin 81 mg DAILY PO 11/08/24 10:00 11/08/24 09:16 81 MG Hydromorphone HCl 0.5 mg Q6HPRN PRN IV 11/07/24 14:45 Examination Constitutional: Patient was alert and oriented to time place and person and does not appear to be in any acute distress Gen - no pallor, no icterus, no cyanosis, no clubbing, no LAD, no edema . Skin - Patients skin is warm and dry. HEENT - normocephalic, atraumatic, moist mucous membranes. Neck - full ROM, no LAD, no JVD Pulmonary - B/L vesicular breath sounds. no crackles , no wheezing, no stridor. cardiovascular - normal S1,S2 heard. no murmurs heard. GI - soft abdomen without tenderness to palpation. no hepatospleenomegaly. Bowel sounds normoactive Neurological - Bilateral upper extremity strength 5/5, bilateral lower extremity strength 3/5, no facial droop, normal speech, no tremor, no sensory deficiets. Extremities- left foot in a sterile dressing s/p surgery laboratory and microbiology Laboratory Tests 11/08/24 06:01 11/07/24 05:51 Test 11/08/24 06:01 Range/Units Serum Glucose 127 H 74-106 mg/dL Microbiology Date/Time Source Procedure Growth Status 11/05/24 06:24 Nose MRSA Screen - Final Complete 11/04/24 02:49 Voided Urine Urine Culture - Final Complete 11/03/24 16:56 Blood Blood Culture - Final NO GROWTH AFTER 5 DAYS OF INCUBATION. Complete Problem List/Assessment/Plan Problem List/Assessment/Plan # necrotizing infection of the foot # osteomyelitis Left foot MRI shows 1.Wounds of the distal aspects of the 1st and 2nd digits with adjacent soft tissue inflammatory changes, likely cellulitis. There is gas within the soft tissues of the great toe, may be tracking from the wound or due to necrotizing infection. 2.Destructive changes in the distal phalanx of the 2nd digit are suspicious for osteomyelitis. There is T2 hyperintense signal in the proximal phalanx of the great toe without corresponding T1 hypointense signal to suggest osteomyelitis, likely reactive marrow signal changes, although evaluation is limited due to the motion artifact. 3.Suspected osteomyelitis in the distal phalanx of the 2nd digit and possible osteomyelitis of the proximal phalanx of the 2nd digit. 4.Marrow edema in the tibial sesamoid of the 1st metatarsal may be due to sesamoiditis and/or arthritic changes or reactive marrow signal changes. Osteomyelitis can not be completely excluded. - on Zosyn and linezolid IV - lower extremity arterial Doppler showed no evidence of hemodynamically significant stenosis - S/p surgery, tolerated procedure well - Follow up surgery to be done for closure on Saturday pain control with norco for moderate and dilaudid for severe pain -11/09- Closure surgery done today # NSTEMI likely type 2 due to above # CAD Possibly due to underlying infection Patient also had a stent placed on 10/29/2024 Troponins trending down, EKG reviewed, no acute ST/T changes Continue Plavix 75 mg p.o. q.d. and Xarelto 2.5 mg b.i.d. 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 # RUSSELL due to VMN improving Avoid nephrotoxic agents # Hyperkalemia Resolved # type 2 diabetes HbA1c 6.3% On mild insulin sliding scale # uncontrolled hypertension - on enalapril 10 mg Goals of care discussed with the patient and the family for over 27 minutes. Full code Case was discussed with Dr. Santillan Plan discussed with: Patient, Daughter, Son My Orders My Orders Orders - ANTHONY LAKHANI Procedure Category Date Status Time Pt Request For Service PT 11/09/24 Logged 16:03 * Transition Nurse CONS 11/09/24 Transmitted Consult Date of Service: Nov 09, 2024 Billing Provider: HANDY SANTILLAN MD Common Visit Codes: [id number] INP/OBS CARE(HIGH) ANTHONY LAKHANI RESIDENT Nov 09, 2024 21:23 HANDY SANTILLAN MD Nov 10, 2024 20:37
[2024-11-10] VITALS (7 sets, daily range): BP systolic 116–154; BP diastolic 43–62; PULSE 71–99; RESP 15–20; TEMP 97.7–98.2; O2SAT 97–100
[2024-11-10 07:27] LABS: Basophils # (auto) 0 10 ^3/uL (0-0.2); Basophils % (auto) 0.4 % (0.0-2.0); Eosinophils # (auto) 0.1 10 ^3/uL (0-0.8); Eosinophils % (auto) 0.9 % (0.0-7.0); Hematocrit 28.1 % (36.0-46.0); Hemoglobin 8.9 g/dL (12.2-16.2); Lymphocytes # (auto) 1.2 10 ^3/uL (0.4-5.4); Lymphocytes % (auto) 19.9 % (10.0-50.0); Mean Corpuscular Hemoglobin 28.1 pg (28.0-32.0); Mean Corpuscular Hgb Conc. 31.7 g/dL (32.0-36.0); Mean Corpuscular Volume 88.9 fL (80.0-100.0); Monocytes # (auto) 0.3 10 ^3/uL (0-1.3); Monocytes % (auto) 5.4 % (0.0-12.0); Neutrophils # (auto) 4.5 10 ^3/uL (1.6-8.6); Neutrophils % (auto) 73.4 % (37.0-80.0); Platelet Count (auto) 217 10^3/uL (140-450); Red Blood Cells 3.16 10^6/uL (4.0-5.20); Red Cell Distribution Width 15.8 % (11.8-14.3); White Blood Cell 6.2 10^3/uL (4.4-10.8)
[2024-11-10 07:40] LABS: Anion Gap 7 (5-15); Carbon Dioxide 26 mmol/L (20-31); Chloride 104 mmol/L (98-107); Potassium 4.2 mmol/L (3.5-5.1); Sodium 137 mmol/L (136-145)
[2024-11-10 07:46] LABS: Blood Urea Nitrogen 15 mg/dL (9-23); INR 1.17 (0.9-1.15); Partial Thromboplastin Time 36.8 SEC (24.5-34.5); Prothrombin Time 12.2 sec (9.3-11.8)
[2024-11-10 07:48] LABS: Glucose 109 mg/dL (74-106)
[2024-11-10] MEDS ORDERED: LIDOCAINE 1% (LOCAL ANESTH.) PF 5ml SDV ID ONE (14:15)
[2024-11-10] MEDS ORDERED: INSU300I SC (17:55)
--- NOTE | 2024-11-10 19:53 | DVHDSRES ---
Discharge Summary Date of Admission Resident Creating Document: ANTHONY LAKHANI RESIDENT Nov 03, 2024 at 21:42 Date of Discharge: Nov 10, 2024 Admitting Diagnosis # generalized weakness, metabolic encephalopathy possibly related to underlying infection. Rule out osteomyelitis, UTI. 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 Labs/Diagnostic Data: Laboratory Results Test 11/10/24 17:15 11/10/24 06:10 11/05/24 06:24 11/04/24 07:06 POC Glucose 188 mg/dl (70-106) White Blood Count 6.2 10^3/uL (4.4-10.8) Red Blood Count 3.16 10^6/uL (4.0-5.20) Hemoglobin 8.9 g/dL (12.2-16.2) Hematocrit 28.1 % (36.0-46.0) Mean Corpuscular Volume 88.9 fL (80.0-100.0) Mean Corpuscular Hemoglobin 28.1 pg (28.0-32.0) Mean Corpuscular Hemoglobin Concent 31.7 g/dL (32.0-36.0) Red Cell Distribution Width 15.8 % (11.8-14.3) Platelet Count 217 10^3/uL (140-450) Mean Platelet Volume 8.0 fL (6.9-10.8) Neutrophils (%) (Auto) 73.4 % (37.0-80.0) Lymphocytes (%) (Auto) 19.9 % (10.0-50.0) Monocytes (%) (Auto) 5.4 % (0.0-12.0) Eosinophils (%) (Auto) 0.9 % (0.0-7.0) Basophils (%) (Auto) 0.4 % (0.0-2.0) Neutrophils # (Auto) 4.5 10 ^3/uL (1.6-8.6) Lymphocytes # (Auto) 1.2 10 ^3/uL (0.4-5.4) Monocytes # (Auto) 0.3 10 ^3/uL (0-1.3) Eosinophils # (Auto) 0.1 10 ^3/uL (0-0.8) Basophils # (Auto) 0 10 ^3/uL (0-0.2) Nucleated Red Blood Cells 0.0 % Prothrombin Time 12.2 sec (9.3-11.8) Prothrombin Time INR 1.17 (0.9-1.15) Activated Partial Thromboplast Time 36.8 SEC (24.5-34.5) Sodium Level 137 mmol/L (136-145) Potassium Level 4.2 mmol/L (3.5-5.1) Chloride Level 104 mmol/L (98-107) Carbon Dioxide Level 26 mmol/L (20-31) Anion Gap 7 (5-15) Blood Urea Nitrogen 15 mg/dL (9-23) Creatinine 1.15 mg/dL (0.550-1.02) Glomerular Filtration Rate Calc 46 mL/min (>90) BUN/Creatinine Ratio 13.0 (10.0-20.0) Serum Glucose 109 mg/dL (74-106) Calcium Level 9.0 mg/dL (8.7-10.4) Total Bilirubin 0.7 mg/dL (0.2-1.0) Aspartate Amino Transferase (AST) 38 U/L (13-40) Alanine Aminotransferase (ALT) 15 U/L (7-40) Alkaline Phosphatase 93 U/L (46-116) Total Protein 8.3 g/dL (5.7-8.2) Albumin 3.7 g/dL (3.2-4.8) Erythrocyte Sedimentation Rate 94 mm/hr (0-20) C-Reactive Protein High Sensitivity 11.29 mg/dL (<1.0) Test 11/04/24 02:49 11/03/24 22:10 11/03/24 18:18 11/03/24 16:56 Urine Color Light-yellow (Yellow) Urine Clarity Clear (Clear) Urine pH 6.0 (5.0-9.0) Urine Specific [place] 1.022 (1.001-1.035) Urine Protein Negative (Negative) Urine Ketones Negative (Negative) Urine Blood Negative /uL (Negative) Urine Nitrite Negative (Negative) Urine Bilirubin Negative (Negative) Urine Urobilinogen 2 mg/dL (Negative) Urine Leukocyte Esterase Negative /uL (Negative) Urine RBC None seen /hpf (0 - 4) Urine WBC 1 /hpf (0 - 5) Urine Squamous Epithelial Cells None seen /hpf (<5) Urine Bacteria None seen /hpf (None Seen) Urine Glucose Normal mg/dL (Normal) Magnesium Level 2.2 mg/dL (1.6-2.6) Troponin I High Sensitivity 187 ng/L (</=34) Hemoglobin A1c 6.3 % A1C (<5.7) Lactic Acid Level 2.0 mmol/L (0.4-2.0) B-Type Natriuretic Peptide 216.39 pg/mL (0-100) Other Laboratory Tests 11/10/24 06:10 Brief Hx & Hospital Course: HPI Patient is an 89-year-old female who was brought in by EMS from home with chief complaint of generalized weakness. History was gathered from family members on patient. Family members stated that today frame trimmer patient has been less responsive than normal, they state that she seemed confused she was standing and then had to be sedated due to almost passing out. She stated that she has been feeling weak. She also stated that she has been seen by vascular surgeon due to peripheral vascular disease and it is soon to be operated. Past medical history: hypertension, type 2 diabetes, peripheral vascular disease, coronary artery disease status post stent placement on 10/29/2024. Past surgical history: PTCA x1 Social history: Patient lives with the daughter and does not report any smoking, alcohol or illicit drug use Home medications: Atorvastatin 20 mg, clopidogrel 75 mg, enalapril 2.5 mg q.d., rivaroxaban 2.5 mg b.i.d., insulin glargine 30 units q.a.m., dapagliflozin 10 mg Hospital course Patient was admitted to the hospital and was found to have left foot gangrene. Patient was started on IV antibiotics for broad spectrum coverage. MRI of the foot was done which showed findings consistent with cellulitis and gas with a soft tissue of the left great toe suspicious necrotizing infection and also findings which suggested osteomyelitis. Podiatry were consulted and patient underwent left foot incision and drainage, amputation, bone biopsy it was sample was sent which Pseudomonas susceptible to multiple drugs. Patient in the hospital was treated with the Zosyn 3.375 g IV q.8 hours with improvement in symptoms and white blood cell count. Patient underwent 2nd surgery with closure of the wound. Patient was evaluated by Physical therapy and recommended front wheel walker with a postop shoe. Discharge plan Discharged in stable condition to home Discharge medication: Zosyn 3.375 g IV b.i.d. for 6 weeks CBC and CMP to be done weekly and results to be sent to primary care provider office Follow up in the Podiatry outpatient clinic in 1-2 weeks Follow up in the discharge clinic in 1 week. Consults/Reason for consult Podiatry consultation for Left foot gangrene Operations or Procedures Foot MRI FINDINGS: Motion artifact limits evaluation. There is a wound at the distal aspect of the great toe. There is T2/stir hyperintense signal in the proximal and middle phalanges of the great toe. There appear to be erosive/destructive changes in the distal phalanx of the great toe, may be due to osteomyelitis. There is no T1 hypointense signal in the proximal phalanx of the great toe to suggest osteomyelitis at this time. There is also a wound at the distal aspect of the 2nd digit of the left foot with adjacent soft tissue edema surrounding the middle and distal phalanges of the 2nd digit. There is T1 hypointense and T2 hyperintense signal in the distal phalanx of the 2nd digit, suspected osteomyelitis. T2 hyperintense signal and questionable small areas of T1 hypointense signal in the middle phalanx of the 2nd digit, possible osteomyelitis. There is marrow edema of the tibial sesamoid of the 1st metatarsal, may be due to sesamoiditis and/or arthritic changes. Can not completely exclude osteomyelitis. Cystic change at the plantar aspect of the 1st metatarsal head adjacent to the, likely sequelae of arthritic changes. There is a bipartite configuration of the fibular sesamoid. IMPRESSION: 1. Wounds of the distal aspects of the 1st and 2nd digits with adjacent soft tissue inflammatory changes, likely cellulitis. There is gas within the soft tissues of the great toe, may be tracking from the wound or due to necrotizing infection. 2. Destructive changes in the distal phalanx of the 2nd digit are suspicious for osteomyelitis. There is T2 hyperintense signal in the proximal phalanx of the great toe without corresponding T1 hypointense signal to suggest osteomyelitis, likely reactive marrow signal changes, although evaluation is limited due to the motion artifact. 3. Suspected osteomyelitis in the distal phalanx of the 2nd digit and possible osteomyelitis of the proximal phalanx of the 2nd digit. 4. Marrow edema in the tibial sesamoid of the 1st metatarsal may be due to sesamoiditis and/or arthritic changes or reactive marrow signal changes. Osteomyelitis can not be completely excluded. Operative Report - 2 Report Details Date: 11/05/24 Preop Diagnosis: 1. Left foot osteomyelitis 2. Left foot gas gangrene 3. Left foot gangrenous digits 1 & 2 4. Left foot pain Postop Diagnosis: Same as preop Surgeon: Damaso Jones MD Anesthesiologist: See anesthesia Anesthesia: Mac Consent: The patient was informed of the risks and benefits of the procedure. These include but are not limited to complications of anesthesia, postoperative infection, incomplete relief of symptoms, recurrence of symptoms, damage to blood vessels, nerves and tendons, deep venous thrombosis, pulmonary embolism and possible need for repeat surgery in the future. Complications: None Estimated Blood Loss: Minimal Fluids: See anesthesia Findings: Consistent with diagnosis Indications for Surgery: Worsening left foot wound Name of Procedure Performed 1. Left foot I&D to bone (19597) 2. Left foot hallux amputation (73166) 3. Left foot second distal IPJ amputation (66932) 4. Left foot bone biopsy x 2 (30109) 5. Left foot delayed closure (11732) Procedure Details Procedure Details: PRE-PROCEDURE INFORMATION: In the pre-op holding area, the extremity to be operated on was clearly marked and the patient verified correct laterality of the marking. The patient was transferred to the OR table and placed in a supine position. A timeout was performed in which identification of the correct patient, procedure, location, and materials was done. The left foot and leg were prepped and draped in normal sterile fashion. The foot and leg were exsanguinated and the _ tourniquet was inflated to 300 mmHg. DESCRIPTION OF PROCEDURE: Attention was directed to the left where area of fluctuance was noted. An incision was made over this area and was deepened through blunt dissection. The incision was deepened to the level of abscess and bone. Care was taken to the dissection to avoid any neurovascular and tendinous structures. The incision was deepened to the bone, and the abscess appeared to be purulent fluid consistent with pus. The cortices of the bone was then removed with Tato sandoval all necrotic tissue. It was decided at that point that the hallux was not salvageable an amputation was performed using a 15. Blade at the level of the MPJ. Using a 15. Blade the 2nd toe was also amputated at the level of the IPJ. After the abscess was drained, the area was irrigated with 3 L normal saline using cysto tubing. Deep cultures were then obtained from the wound. A bone biopsy was then taken of the left hallux and left distal 2nd digit which was deepened to the muscle belly and tendons. The bone was then sent to pathology to determine the extent of osteomyelitis. The area was then inspected and any areas of tracking, especially along the tendons were also drained. The hallux wound was then dressed with Betadine-soaked gauze and a delayed closure was performed on the 2nd digit with 2-0 nylon. POSTOPERATIVE INFORMATION: The patient tolerated the above noted procedure and anesthesia well and was transferred to the PACU with vital signs stable, and vascular status intact with capillary refill intact to all digits. Patient will return to the floor and continue IV antibiotics. Cultures were taken. Bone biopsy was sent. Patient will return to the OR on Saturday for closure. Specimen: Hallux and distal 2nd toe Condition Good Disposition 2 Still a Patient DAMASO JONES [facility] Operative Report - 2 Report Details Date: 11/09/24 Preop Diagnosis: 1. Left foot osteomyelitis 2. Left foot gas gangrene 3. Left foot gangrenous digits 1 & 2 4. Left foot pain Postop Diagnosis: Same as preop Surgeon: Damaso Jones MD Anesthesiologist: See anesthesia Anesthesia: Mac Consent: The patient was informed of the risks and benefits of the procedure. These include but are not limited to complications of anesthesia, postoperative infection, incomplete relief of symptoms, recurrence of symptoms, damage to blood vessels, nerves and tendons, deep venous thrombosis, pulmonary embolism and possible need for repeat surgery in the future. Complications: None Estimated Blood Loss: Minimal Fluids: See anesthesia Findings: Consistent with diagnosis Indications for Surgery: Worsening left foot wound Name of Procedure Performed 1. Left foot I&D to bone (43184) 2. Left foot hallux amputation (12444) 3. Left foot second distal IPJ amputation (83688) 4. Left foot bone biopsy x 2 () 5. Left foot delayed closure (19308) Procedure Details Procedure Details: PRE-PROCEDURE INFORMATION: In the pre-op holding area, the extremity to be operated on was clearly marked and the patient verified correct laterality of the marking. The patient was transferred to the OR table and placed in a supine position. A timeout was performed in which identification of the correct patient, procedure, location, and materials was done. The left foot and leg were prepped and draped in normal sterile fashion. The foot and leg were exsanguinated and the _ tourniquet was inflated to 300 mmHg. DESCRIPTION OF PROCEDURE: Attention was directed to the left foot where previous amputation was performed. An incision was made over this area and was deepened through blunt dissection. The incision was deepened to the level of abscess and bone. Care was taken to the dissection to avoid any neurovascular and tendinous structures. The incision was deepened to the bone, and the abscess appeared to be purulent fluid consistent with pus. The cortices of the bone was then removed with Tato an all necrotic tissue. After the abscess was drained, the area was irrigated with 3 L normal saline using cysto tubing. A delayed closure was then performed using 2-0 nylon after was deemed appropriate with no longer concern for infection. POSTOPERATIVE INFORMATION: The patient tolerated the above noted procedure and anesthesia well and was transferred to the PACU with vital signs stable, and vascular status intact with capillary refill intact to all digits. Patient will return to the floor continue IV antibiotics. Patient will need 6 weeks of IV antibiotics. Patient can discharge when deemed medically stable. 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 Follow Up/Referral: Follow up in the D/C clinic in one week Weekly CBC and CMP to be sent to the PCP office while the patient is on IV antibiotics Follow up with the podiatary outpatient clinic in one week Medications: Zosyn 3.375 g IV BID X 6 weeks continue home medications as per EMR Discharge Statement: "Patient was advised to return to the ER or call 911 if any headaches, dizziness, shortness of breath, chest pain, abdominal pain, bleeding, fevers, or worsening of medical condition. Patient was counseled about treatment plan, medications, possible side effects, patientverbalized understanding. All questions were answered to the best of my ability. 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
[2024-11-10] MEDS: hydrALAZINE HCL 20 MG/ML VL IV ONE (20:50)
[2024-11-10] MEDS ORDERED: SODIUM CHLOR 0.9% PF (SALINE LOCK) 10ML VIAL/SYR IV SCH (22:00)
== END 2024-11-10 22:10 | disposition home health service (06) | DRG 616 ==
LOC: ER 15:05 → EDBD 15:05 → TELE 21:42 → TELE-WESTW 11-04 11:08 → WEST WING 11-07 10:02
PROVIDERS: ADMIT Hospitalist; ATTEND Hospitalist
PROC: 0Y6Q0Z0 Detachment at Left 1st Toe, Complete, Open Approach (ICD-10-PCS; principal; 2024-11-06)
PROC: 0Y6S0Z3 Detachment at Left 2nd Toe, Low, Open Approach (ICD-10-PCS; 2024-11-06)
PROC: 0QBR0ZX Excision of Left Toe Phalanx, Open Approach, Diagnostic (ICD-10-PCS; 2024-11-06)
PROC: 0QBR0ZX Excision of Left Toe Phalanx, Open Approach, Diagnostic (ICD-10-PCS; 2024-11-06)
PROC: 0Y9N0ZZ Drainage of Left Foot, Open Approach (ICD-10-PCS; 2024-11-09)
PROC: 02HV33Z Insertion of Infusion Device into Superior Vena Cava, Percutaneous Approach (ICD-10-PCS; 2024-11-10)
PROC: B548ZZA Ultrasonography of Superior Vena Cava, Guidance (ICD-10-PCS; 2024-11-10)
DX: E11.69 Type 2 diabetes mellitus with other specified complication (principal); A48.0 Gas gangrene; G93.41 Metabolic encephalopathy; I21.A1 Myocardial infarction type 2; E11.52 Type 2 diabetes mellitus with diabetic peripheral angiopathy with gangrene; M86.8X7 Other osteomyelitis, ankle and foot; L03.116 Cellulitis of left lower limb; L02.612 Cutaneous abscess of left foot; N17.0 Acute kidney failure with tubular necrosis; E87.5 Hyperkalemia; F03.90 Unspecified dementia, unspecified severity, without behavioral disturbance, psychotic disturbance, mood disturbance, and anxiety; I10 Essential (primary) hypertension; I25.10 Atherosclerotic heart disease of native coronary artery without angina pectoris; I05.8 Other rheumatic mitral valve diseases; Z86.73 Personal history of transient ischemic attack (TIA), and cerebral infarction without residual deficits; Z95.5 Presence of coronary angioplasty implant and graft; Z83.3 Family history of diabetes mellitus; Z95.2 Presence of prosthetic heart valve
CPT/HCPCS: 36415; 36569; 70450; 71045; 73630; 73718; 80048; 80053; 81001; 82962; 83036; 83605; 83735; 83880; 84132; 84484; 85025; 85610; 85652; 85730; 86141; 86850; 86900; 86901; 87040; 87077; 87081; 87086; 87186; 87205; 93005; 93306; 93925; 97163; G0378; J1100; J1815; J2250; J2405; J2543; J2704; J3490

== ENCOUNTER 2025-01-31 07:43 | Inpatient (IN) | payer OTHER, MEDICAID ==
[~2025-01-31] VITALS: Ht 144.8 cm; Wt 60.1 kg
[~2025-01-31 07:43] MED LIST changes: +CLOP75TA70 PO; +DAPA10TA3 PO; +INSU300I SC
--- NOTE | 2025-01-31 08:15 | ECG ---
[facility]– [place] Test Date: 2025-01-31 Test Time: 08:13:36 Pat Name: WON Cuevaspartment: ER Room: 0293 Gender: F [employer] In[employer]: ARIE : [id number] Requested By: FRANKLIN GRIGGS Order Number: [id number] Reading MD: Ezequiel Balderas Measurements Intervals [place] Rate: 72 P: -43 [place]: 98 QRS: 34 QRSD: 91 T: 61 QT: 429 QTc: 470 Interpretive Statements Sinus rhythm Short [place] interval Electronically Signed On 02-03-2025 20:55:07 PDT by Ezequiel Balderas Please click the below link to view image of tracing.
--- NOTE | 2025-01-31 09:54 | ED.PDOC ---
History of Present Illness(SKN HPI Comments 89 y.o female with PMHx of DM, [place], and osteomyelitis, presents to the ED for a chief complaint of left foot pain associated with discoloration of the third toe. Patient's family members report patient had an amputation of the left great toe and second toe one week ago at [facility] but mention that prior to discharge, noticed discoloration of the third toe as well. Patient was discharged with a PICC line for antibiotic and has had diarrhea for the past 2-3 days. Patient is now complaining of new onset pain to the third toe. Wound is clean and wrapped. No discharged, bleeding, fever, or chills reported. Chief Complaint: Lower Extremity Time Seen by MD: 09:30 Primary Care Provider: LOUISA History of Present Illness: Nurses Notes, Medications, Allergies Allergies: Coded Allergies: NO KNOWN ALLERGIES (Unverified , 11/03/24) Home Meds Active Scripts Insulin Glargine (Toujeo Max Solostar) 300 Unit/Ml Inj, 20 UNIT SC QAM for 30 Days, #2 INJ Prov:ANTHONY LAKHANI RESIDENT 11/10/24 Reported Medications Enalapril Maleate (Enalapril Maleate) 10 Mg Tab, 1 TAB PO DAILY for 90 Days, #90 11/05/24 Dapagliflozin Propanediol (Dapagliflozin Propanediol) 10 Mg Tab, 10 MG PO DAILY, TAB 11/04/24 Clopidogrel Bisulfate (CLOPIDOGREL) 75 Mg Tab, 1 TAB PO DAILY, #90 TAB 1 Refill 11/04/24 Information Source: Patient, Relative Mode of Arrival: Wheelchair Severity: Moderate Timing: Weeks (1) Duration: Since onset Location: Foot Mechanism: Preceding Wound Object: None Wound Type: Other History of: Diabetes Associated Signs and Symptoms: Pain, Other Past Medical History PAST MEDICAL HISTORY: DM, MO Surgical History: PTCA Surgical History (Other): amputation of the left great toe and second toe [employer]GAN[employer]ER History: Unknown Family History Family History: Reviewed,noncontributory to illness Social History Smoker: Non-Smoker Alcohol: Denies ETOH Use Drugs: Denies Drug Use Lives In: Home Constitutional: denies: chills, diaphoresis, fatigue, fever, malaise, sweats, weakness, others EENTM: denies: blurred vision, double vision, ear bleeding, ear discharge, ear drainage, ear pain, ear ringing, eye pain, eye redness, hearing loss, mouth pain, mouth swelling, nasal discharge, nose bleeding, nose congestion, nose pain, photophobia, tearing, throat pain, throat swelling, voice changes, others Respiratory: denies: cough, hemoptysis, orthopnea, SOB at rest, shortness of breath, SOB with excertion, stridor, wheezing, others Cardiovascular: denies: chest pain, dizzy spells, diaphoresis, Dyspnea on ex ertion, edema, irregular heart beat, left arm pain, lightheadedness, palpitations, PND, syncope, others Gastrointestinal: denies: abdomen distended, abdominal pain, blood streaked bowels, constipated, diarrhea, dysphagia, difficulty swallowing, hematemesis, melena, nausea, poor appetite, poor fluid intake, rectal bleeding, rectal pain, vomiting, others Genitourinary: denies: abnormal vagina bleeding, burning, dyspareunia, dysuria, flank pain, frequency, hematuria, incontinence, pain, , vagina discharge, urgency, others Neurological: denies: dizziness, fainting, headache, left sided numbness, left sided weakness, numbness, paresthesia, pre-existing deficit, right sided numbness, right sided weakness, seizure, speech problems, tingling, tremors, weakness, others Musculoskeletal: denies: back pain, gout, joint pain, joint swelling, muscle pain, muscle stiffness, neck pain, others Integumetry: reports: wounds (left foot 3rd toe discoloration with pain ); denies: bruises, change in color, change in hair/nails, dryness, laceration, lesions, lumps, rash, others Allergic/Immunocompromised: denies: Difficulty Healing, Frequent Infections, Hives, Itching, others Hematologic/Lymphatic: denies: anemia, blood clots, easy bleeding, easy bruising, swollen glands, others Endocrine: denies: excessive hunger, excessive sweating, excessive thirst, excessive urination, flushing, intolerance to cold, intolerance to heat, unexplained weight gain, unexplained weight loss, others Psychiatric: denies: anxiety, bipolar disorder, depression, hopeless, panic disorder, schizophrenia, sleepless, suicidal, others All Other Systems: Reviewed and Negative Physical Exam General Appearance: Moderate Distress HEENT: Normal ENT Inspection, Pharynx Normal, TMs Normal Neck: Full Range of Motion, Non-Tender, Normal, Normal Inspection Respiratory: Chest Non-Tender, Lungs Clear, No Accessory Muscle Use, No Respiratory Distress, Normal Breath Sounds Cardiovascular: No Edema, No JVD, No Murmur, No Gallop, Normal Peripheral Pulses, Regular Rate/Rhythm Breast Exam: Deferred Gastrointestinal: No Organomegaly, Non Tender, No Pulsatile Mass, Normal Bowel Sounds, Soft Genitalia: Deferred Pelvic: Deferred Rectal: Deferred Extremities: No calf tenderness, No pedal edema Musculoskeletal : Apperance: Normal Neurologic: Alert Cerebellar Function: NOT DONE Reflexes: NOT DONE Skin: Wounds (Left foot post amputation big toe 2nd toe 3rd toe necrotic) Peripheral Pulses: 3+ Radial (R), 3+ Radial (L) Lymphatic: No Adenopathy Was a procedure done? Was a procedure done?: No Differential Diagnosis (INTG) Differential Diagnosis: Abscess, Cellulitis, Gangrene, Osteomyelitis, Other (PAD) X-Ray, Labs, Meds, VS Vital Signs Date Time Temp Pulse Resp B/P (MAP) Pulse Ox O2 Delivery O2 Flow Rate FiO2 01/31/25 08:32 98.0 87 17 117/42 (67) 99 98.0 01/31/25 08:31 Room Air* 0 21 01/31/25 08:13 72 01/31/25 08:02 98.7 70 18 116/48 (70) 97 98.7 Lab Test 01/31/25 10:10 Range/Units White Blood Count 8.0 4.4-10.8 10^3/uL Red Blood Count 3.63 L 4.0-5.20 10^6/uL Hemoglobin 10.0 L 12.2-16.2 g/dL Hematocrit 31.4 L 36.0-46.0 % Mean Corpuscular Volume 86.7 80.0-100.0 fL Mean Corpuscular Hemoglobin 27.6 L 28.0-32.0 pg Mean Corpuscular Hemoglobin Concent 31.8 L 32.0-36.0 g/dL Red Cell Distribution Width 17.9 H 11.8-14.3 % Platelet Count 297 140-450 10^3/uL Mean Platelet Volume 8.5 6.9-10.8 fL Neutrophils (%) (Auto) 73.2 37.0-80.0 % Lymphocytes (%) (Auto) 17.0 10.0-50.0 % Monocytes (%) (Auto) 8.0 0.0-12.0 % Eosinophils (%) (Auto) 1.5 0.0-7.0 % Basophils (%) (Auto) 0.3 0.0-2.0 % Neutrophils # (Auto) 5.8 1.6-8.6 10 ^3/uL Lymphocytes # (Auto) 1.4 0.4-5.4 10 ^3/uL Monocytes # (Auto) 0.6 0-1.3 10 ^3/uL Eosinophils # (Auto) 0.1 0-0.8 10 ^3/uL Basophils # (Auto) 0 0-0.2 10 ^3/uL Nucleated Red Blood Cells 0.0 % Sodium Level Pending Potassium Level Pending Chloride Level Pending Carbon Dioxide Level Pending Anion Gap Pending Blood Urea Nitrogen Pending Creatinine Pending Glomerular Filtration Rate Calc Pending BUN/Creatinine Ratio Pending Serum Glucose Pending Calcium Level Pending Patient alert. Has a wound of the left foot. Had surgery at this hospital. Vitals stable. She is comfortable. PICC line in place. Antibiotic induced diarrhea. She has not necrotic left 3rd toe. Reviewed her previous visit. Explained to the family. Continue monitoring. X-Ray, Labs, Meds, VS Comment CLINICAL INDICATION: 89 years old, Female; osteo. TECHNIQUE: Noncontrast CT of the left foot was performed. Sagittal and coronal reformatted images are provided. COMPARISON: CT LEFT LOWER EXTREMITY W/O CON on DOS: 01/16/25 CT Dose: CTDI volume is 7.75 mGy. Dose-length product is 205.12 mGy*cm FINDINGS: No fracture or dislocation. Amputation of the 1st and 2nd toe phalanges. There is lucency with gas noted in the 1st metatarsal head at the amputation site. This is suspicious for osteomyelitis. Soft tissue emphysema and swelling in the medial forefoot with surgical clips may be postsurgical in nature. Soft tissue infection is not excluded. IMPRESSION: 1. Findings suspicious for osteomyelitis in the 1st metatarsal head. 2. Postsurgical changes versus soft tissue infection in the medial forefoot adjacent to the 1st and 2nd toes at the site of previous amputation. All CT scans at this medical facility are performed using dose modulation techniques as appropriate to a performed exam including the following: Automated exposure control was utilized; adjustment of the MA and/or KV according to patient size; and use of iterative reconstruction technique. Time of 1ST Reevaluation: 09:47 Reevaluation 1ST: Unchanged Patient Education/Counseling: Diagnosis, Treatment, Prognosis Family Education/Counseling: Diagnosis, Treatment, Prognosis Departure 1 Departure Time of Disposition: 10:22 Impression: Primary Impression: Osteomyelitis of ankle and foot Disposition: ADMITTED INPATIENT Admit to: Med Surg Condition: Guarded Critical Care Note Critical Care Time?: No Stability Stability form required: No I personally scribed for FRANKLIN GRIGGS MD ([email or web address]) on 01/31/25 at 09:54. Electronically submitted by Kiah Austin ([facility]). I personally scribed for FRANKLIN GRIGGS MD ([email or web address]) on 01/31/25 at 11:03. Electronically submitted by Kiah Austin ([facility]). FRANKLIN GRIGGS MD Jan 31, 2025 09:54
[2025-01-31 10:40] LABS: Basophils # (auto) 0 10 ^3/uL (0-0.2); Basophils % (auto) 0.3 % (0.0-2.0); Eosinophils # (auto) 0.1 10 ^3/uL (0-0.8); Eosinophils % (auto) 1.5 % (0.0-7.0); Hematocrit 31.4 % (36.0-46.0); Lymphocytes # (auto) 1.4 10 ^3/uL (0.4-5.4); Mean Corpuscular Hemoglobin 27.6 pg (28.0-32.0); Mean Corpuscular Hgb Conc. 31.8 g/dL (32.0-36.0); Mean Corpuscular Volume 86.7 fL (80.0-100.0); Monocytes # (auto) 0.6 10 ^3/uL (0-1.3); Neutrophils # (auto) 5.8 10 ^3/uL (1.6-8.6); Neutrophils % (auto) 73.2 % (37.0-80.0); Platelet Count (auto) 297 10^3/uL (140-450); Red Blood Cells 3.63 10^6/uL (4.0-5.20); Red Cell Distribution Width 17.9 % (11.8-14.3)
[2025-01-31 10:57] LABS: Chloride 105 mmol/L (98-107); Potassium 4.2 mmol/L (3.5-5.1); Sodium 138 mmol/L (136-145)
[2025-01-31 10:58] LABS: Anion Gap 5 (5-15); Carbon Dioxide 28 mmol/L (20-31)
[2025-01-31 10:59] LABS: Calcium 8.7 mg/dL (8.7-10.4)
--- NOTE | 2025-01-31 10:59 | DVH ---
CLINICAL INDICATION: 89 years old, Female; osteo. TECHNIQUE: Noncontrast CT of the left foot was performed. Sagittal and coronal reformatted images are provided. COMPARISON: CT LEFT LOWER EXTREMITY W/O CON on DOS: 01/16/25 CT Dose: CTDI volume is 7.75 mGy. Dose-length product is 205.12 mGy*cm FINDINGS: No fracture or dislocation. Amputation of the 1st and 2nd toe phalanges. There is lucency w ith gas noted in the 1st metatarsal head at the amputation site. This is suspicious for osteomyelitis . Soft tissue emphysema and swelling in the medial forefoot with surgical clips may be postsurgical in nature. Soft tissue infection is not excluded. IMPRESSION: 1. Findings suspicious for osteomyelitis in the 1st metatarsal head. 2. Postsurgical changes versus soft tissue infection in the medial forefoot adjacent to the 1st and 2 nd toes at the site of previous amputation. All CT scans at this medical facility are performed using dose modulation techniques as appropriate t o a performed exam including the following: Automated exposure control was utilized; adjustment of th e MA and/or KV according to patient size; and use of iterative reconstruction technique.
[2025-01-31 11:03] LABS: Blood Urea Nitrogen 18 mg/dL (9-23)
[2025-01-31 11:50] LABS: Glucose 138 mg/dL (74-106)
[2025-01-31] MEDS: HYDROcodone-ACET 10/325MG TAB PO ONE (13:56)
[2025-01-31] MEDS ORDERED: DOCUSATE SOD 100 MG CAP PO PRN (15:00)
[2025-01-31] MEDS ORDERED: HYDROmorphone HCL 2 MG/ML VL/or syr IV PRN (15:00)
[2025-01-31] MEDS ORDERED: VANCOMYCIN PER PHARMACY 0 MG IV SCH (15:00)
[2025-01-31] MEDS ORDERED: ONDANSETRON HCL 4 MG/2 ML VIAL IV PRN (15:00)
[2025-01-31] MEDS ORDERED: DEXTROSE (50%) 50ML SYRG IV PRN (15:00)
[2025-01-31] MEDS ORDERED: ACETAMINOPHEN 325 MG TAB PO PRN (15:00)
[2025-01-31 15:04] LABS: Urine Bacteria None Seen /hpf (None Seen)
--- NOTE | 2025-01-31 15:06 | DVHHP2 ---
Admitting Diagnosis: left foot pain History of Present Illness 89 y.o female with PMHx of DM, [place], and osteomyelitis, presents to the ED for a chief complaint of left foot pain associated with discoloration of the third toe. Patient's family members report patient had an amputation of the left great toe and second toe one week ago at [facility] but mention that prior to discharge, noticed discoloration of the third toe as well. Patient was discharged with a PICC line for antibiotic and has had diarrhea for the past 2-3 days. Patient is now complaining of new onset pain to the third toe. Wound is clean and wrapped. No discharged, bleeding, fever, or chills reported. PAST MEDICAL HISTORY: DM, ND Surgical History: PTCA Surgical History (Other): amputation of the left great toe and second toe [employer]ATOR History: Unknown Family History Family History: Reviewed,noncontributory to illness Social History Smoker: Non-Smoker Alcohol: Denies ETOH Use Drugs: Denies Drug Use Lives In: Home Patient Family History: Diabetes mellitus G8 FATHER Allergies: Coded Allergies: NO KNOWN ALLERGIES (Unverified , 11/03/24) Home Meds Active Scripts Insulin Glargine (Toujeo Max Solostar) 300 Unit/Ml Inj, 20 UNIT SC QAM for 30 Days, #2 INJ Prov:ANTHONY LAKHANI RESIDENT 11/10/24 Reported Medications Enalapril Maleate (Enalapril Maleate) 10 Mg Tab, 1 TAB PO DAILY for 90 Days, #90 11/05/24 Dapagliflozin Propanediol (Dapagliflozin Propanediol) 10 Mg Tab, 10 MG PO DAILY, TAB 11/04/24 Clopidogrel Bisulfate (CLOPIDOGREL) 75 Mg Tab, 1 TAB PO DAILY, #90 TAB 1 Refill 11/04/24 Vital Signs Vital Signs Date Time Temp Pulse Resp B/P (MAP) Pulse Ox O2 Delivery O2 Flow Rate FiO2 01/31/25 08:32 98.0 87 17 117/42 (67) 99 98.0 01/31/25 08:31 Room Air* 0 21 Physical Exam 80 years old woman, well nourished well developed. Moderate distress HEENT-atraumatic, normocephalic Heart-regular rate and rhythm Lungs clear to auscultate bilaterally Abdomen soft nontender nondistended Musculoskeletal-left foot wrapped in bandage, no gross bleeding, tender to palpate 1st metatarsal. post surgical 1st and 2nd toe. Neuro-AO x3, strength intact, sensation decrease in left lower foot Results Labs Test 01/31/25 15:02 01/31/25 10:10 Range/Units White Blood Count 8.0 4.4-10.8 10^3/uL Red Blood Count 3.63 L 4.0-5.20 10^6/uL Hemoglobin 10.0 L 12.2-16.2 g/dL Hematocrit 31.4 L 36.0-46.0 % Mean Corpuscular Volume 86.7 80.0-100.0 fL Mean Corpuscular Hemoglobin 27.6 L 28.0-32.0 pg Mean Corpuscular Hemoglobin Concent 31.8 L 32.0-36.0 g/dL Red Cell Distribution Width 17.9 H 11.8-14.3 % Platelet Count 297 140-450 10^3/uL Mean Platelet Volume 8.5 6.9-10.8 fL Neutrophils (%) (Auto) 73.2 37.0-80.0 % Lymphocytes (%) (Auto) 17.0 10.0-50.0 % Monocytes (%) (Auto) 8.0 0.0-12.0 % Eosinophils (%) (Auto) 1.5 0.0-7.0 % Basophils (%) (Auto) 0.3 0.0-2.0 % Neutrophils # (Auto) 5.8 1.6-8.6 10 ^3/uL Lymphocytes # (Auto) 1.4 0.4-5.4 10 ^3/uL Monocytes # (Auto) 0.6 0-1.3 10 ^3/uL Eosinophils # (Auto) 0.1 0-0.8 10 ^3/uL Basophils # (Auto) 0 0-0.2 10 ^3/uL Nucleated Red Blood Cells 0.0 % Sodium Level 138 136-145 mmol/L Potassium Level 4.2 3.5-5.1 mmol/L Chloride Level 105 98-107 mmol/L Carbon Dioxide Level 28 20-31 mmol/L Anion Gap 5 5-15 Blood Urea Nitrogen 18 9-23 mg/dL Creatinine 1.00 0.550-1.02 mg/dL Glomerular Filtration Rate Calc 55 >90 mL/min BUN/Creatinine Ratio 18.0 10.0-20.0 Serum Glucose 138 H 74-106 mg/dL Calcium Level 8.7 8.7-10.4 mg/dL Primary Diagnosis Left foot 1st metatarsal osteomyelitis Plan CT of lower extremity shows left 1st metatarsal osteomyelitis. Start vanco and Zosyn for broad-spectrum antibiotics Check blood culture Podiatry consult for left 1st metatarsal osteomyelitis Check CRP Check INR PT PTT Pain control IV fluids NPO after midnight for possible procedure in the morning Resume Lantus half dose when patient is NPO Insulin sliding scale No GI prophylaxis needed Full code Plan discussed with: Patient Problems List: (1) Osteolysis of left foot Date of Service: Jan 31, 2025 Billing Provider: BONNIE ART MD Common Visit Codes: [id number] INP/OBS CARE (HIGH) BONNIE ART MD Jan 31, 2025 15:06
[2025-01-31 15:21] LABS: Urine Blood TRACE /uL (Negative); Urine Budding Yeast OCCASIONAL /hpf (None Seen); Urine Clarity Clear (Clear); Urine Color Light-Yellow (Yellow); Urine Protein, UAD 1+ (Negative); Urine Specific Gravity 1.012 (1.001-1.035); Urine Squamous Epithelial Cell FEW /hpf (<5); Urine Urobilinogen Normal (Negative); Urine WBC 4 /HPF (0-5)
[2025-01-31] MEDS ORDERED: VANCOMYCIN 1GM/200ML PM 200 ML IV ONE (15:30)
[2025-01-31] MEDS: LACTATED RINGER'S 1,000 ML IV ONE (15:44)
[2025-01-31] MEDS ORDERED: PIPERACILLIN-TAZOB 3.375GM 100 ML IV ONE (15:45)
[2025-01-31 16:09] LABS: INR 1.08 (0.9-1.15); Prothrombin Time 11.4 sec (9.3-11.8)
[2025-01-31] MEDS: ACCU-CHEK COMFORT CURVE STRIP VI SCH (17:00)
[2025-01-31] MEDS: InsuLIN REG 1unit/0.01ml Soln (100units/ml) SC SCH (17:30)
[2025-01-31 21:42] VITALS: BP 130/69; PULSE 78; RESP 17; O2SAT 98
[2025-01-31 21:57] VITALS: PULSE 78; RESP 17; O2SAT 99
[2025-01-31 21:58] VITALS: BP 130/69; PULSE 78; RESP 18; TEMP 98.2; O2SAT 99
[2025-01-31] MEDS ORDERED: PIPERACILLIN-TAZOB 3.375GM 100 ML IV SCH (22:00)
[2025-01-31] MEDS: HYDROcodone-ACET 5/325MG TAB PO PRN (22:53)
[2025-01-31] MEDS: SODIUM CHLOR 0.9% PF (SALINE LOCK) 10ML VIAL/SYR IV SCH (22:54)
[2025-01-31] MEDS: PIPERACILLIN-TAZOB 3.375GM 100 ML IV SCH (22:54)
[2025-01-31] MEDS: VANCOMYCIN 1GM/200ML PM 200 ML IV ONE (22:54)
[2025-02-01] VITALS (7 sets, daily range): BP systolic 113–153; BP diastolic 46–59; PULSE 58–79; RESP 16–22; TEMP 97.6–98.5; O2SAT 95–100
[2025-02-01] MEDS: INSULIN GLARGINE SC SCH (06:11)
[2025-02-01 07:18] LABS: Basophils # (auto) 0 10 ^3/uL (0-0.2); Basophils % (auto) 0.5 % (0.0-2.0); Eosinophils # (auto) 0.2 10 ^3/uL (0-0.8); Eosinophils % (auto) 3.1 % (0.0-7.0); Hematocrit 32.2 % (36.0-46.0); Hemoglobin 10.1 g/dL (12.2-16.2); Lymphocytes # (auto) 1.3 10 ^3/uL (0.4-5.4); Lymphocytes % (auto) 18.6 % (10.0-50.0); Mean Corpuscular Hemoglobin 27.6 pg (28.0-32.0); Mean Corpuscular Hgb Conc. 31.5 g/dL (32.0-36.0); Mean Corpuscular Volume 87.7 fL (80.0-100.0); Monocytes # (auto) 0.7 10 ^3/uL (0-1.3); Monocytes % (auto) 9.7 % (0.0-12.0); Neutrophils # (auto) 4.6 10 ^3/uL (1.6-8.6); Neutrophils % (auto) 68.1 % (37.0-80.0); Nucleated Red Blood Cells % 0.1 %; Platelet Count (auto) 279 10^3/uL (140-450); Red Blood Cells 3.67 10^6/uL (4.0-5.20); Red Cell Distribution Width 18.1 % (11.8-14.3); White Blood Cell 6.8 10^3/uL (4.4-10.8)
[2025-02-01 07:43] LABS: Alanine Aminotransferase 14 U/L (7-40); Albumin 2.9 g/dL (3.2-4.8); Alkaline Phosphatase 140 U/L (46-116); Anion Gap 7 (5-15); Aspartate Aminotransferase 41 U/L (13-40); BUN/Creatinine Ratio 20.2 (10.0-20.0); Bilirubin, Total 0.4 mg/dL (0.2-1.0); Blood Urea Nitrogen 21 mg/dL (9-23); Calcium 8.4 mg/dL (8.7-10.4); Carbon Dioxide 26 mmol/L (20-31); Chloride 104 mmol/L (98-107); Glucose 114 mg/dL (74-106); Potassium 4.4 mmol/L (3.5-5.1); Sodium 137 mmol/L (136-145); Total Protein 7.2 g/dL (5.7-8.2)
[2025-02-01] MEDS: DAPAGLIFLOZIN PROPANEDIOL 10 MG PO SCH (10:00)
--- NOTE | 2025-02-01 10:52 | DVH ---
EXAM: XY CHEST PORTABLE Indication: pain Technique: Single frontal view of the chest was obtained Comparison: XY CHEST PORTABLE on DOS: 01/16/25, XY CHEST PORTABLE on DOS: 11/03/24 FINDINGS: Lines and Tubes: Right PICC tip in appropriate position Lungs: No focal consolidation. Pleura: No effusion. No pneumothorax. Cardiomediastinal contours: Unremarkable Bones: No acute osseous abnormality. IMPRESSION: No acute cardiopulmonary disease.
[2025-02-01] MEDS: CLOPIDOGREL BISULFATE 75 MG TAB PO SCH (11:18)
[2025-02-01] MEDS: ENALAPRIL MALEATE 10 MG TAB PO SCH (11:19)
--- NOTE | 2025-02-01 12:51 | DVHINCON2 ---
Date Seen: Feb 01, 2025 Reason for Consultation Left foot wound History of Present Illness 89 y.o female with PMHx of DM, [place], and osteomyelitis, presents to the ED for a chief complaint of left foot pain associated with discoloration of the third toe. Patient's family members report patient had an amputation of the left great toe and second toe one week ago at [facility] but mention that prior to discharge, noticed discoloration of the third toe as well. Patient was discharged with a PICC line for antibiotic and has had diarrhea for the past 2-3 days. Patient is now complaining of new onset pain to the third toe. Wound is clean and wrapped. No discharged, bleeding, fever, or chills reported. Past Medical History See H&P Past Surgical History See H&P Family History: Diabetes mellitus G8 FATHER Allergies: Coded Allergies: NO KNOWN ALLERGIES (Unverified , 11/03/24) Home Meds Active Scripts Insulin Glargine (Toujeo Max Solostar) 300 Unit/Ml Inj, 20 UNIT SC QAM for 30 Days, #2 INJ Prov:ANTHONY LAKHANI RESIDENT 11/10/24 Reported Medications Enalapril Maleate (Enalapril Maleate) 10 Mg Tab, 1 TAB PO DAILY for 90 Days, #90 11/05/24 Dapagliflozin Propanediol (Dapagliflozin Propanediol) 10 Mg Tab, 10 MG PO DAILY, TAB 11/04/24 Clopidogrel Bisulfate (CLOPIDOGREL) 75 Mg Tab, 1 TAB PO DAILY, #90 TAB 1 Refill 11/04/24 Current Medications Current Medications Medications (Trade) Dose Ordered Sig/Sumanth Route PRN Reason Start Time Stop Time Status Last Admin Vancomycin HCl 0 ml @ 0 mls/hr UD IV 01/31/25 15:00 Piperacillin Sod/ Tazobactam Sod 100 ml @ 25 mls/hr Q8HR IV 01/31/25 22:00 01/31/25 22:04 DC Clopidogrel Bisulfate (Plavix) 75 mg DAILY PO 02/01/25 10:00 02/01/25 11:18 Enalapril Maleate (Vasotec Tablet) 10 mg DAILY PO 02/01/25 10:00 02/01/25 11:19 Patient Own Medication 10 mg DAILY PO 02/01/25 10:00 Patient Own Medication 20 unit QAM SC 02/01/25 07:00 Diagnostic Test (Pha) (Accu-Chek Comfort Curve T) 1 strip ACHS 01/31/25 17:00 02/01/25 11:22 Insulin Human Regular (InsuLIN R) ACHS SC 01/31/25 17:00 Dextrose 50 ml UD PRN IV Blood Sugar LESS THAN 60 01/31/25 15:00 Sodium Chloride (Saline Lock Ns) 10 ml Q8HR IV 01/31/25 22:00 02/01/25 05:48 Docusate Sodium (Colace Capsule) 100 mg BIDPRN PRN PO FOR CONSTIPATION 01/31/25 15:00 Acetaminophen (Tylenol Tablet) 650 mg Q6HP PRN PO PAIN SCALE 1-3 OR TEMP>100.4 01/31/25 15:00 Acetaminophen/ Hydrocodone Bitart ([place] 5/325MG Tab) 1 tab Q4HP PRN PO MODERATE PAIN (4-6 PAIN SCALE) 01/31/25 15:00 01/31/25 22:53 Hydromorphone HCl (Dilaudid Injection) 0.5 mg Q4HP PRN IV SEVERE PAIN (7-10 PAIN SCALE) 01/31/25 15:00 Ondansetron HCl (Zofran) 4 mg Q4HP PRN IV NAUSEA / VOMITING 01/31/25 15:00 Piperacillin Sod/ Tazobactam Sod 100 ml @ 25 mls/hr Q8H IV 01/31/25 22:15 02/01/25 05:48 Vital Signs Vital Signs Date Time Temp Pulse Resp B/P (MAP) Pulse Ox O2 Delivery O2 Flow Rate FiO2 02/01/25 11:19 148/59 02/01/25 08:46 98.1 69 17 100 98.1 02/01/25 08:15 Room Air* 0 21 Physical Exam Dermatological: Skin is dry with mild erythema and some maceration around the wound site No gross deformities noted Mild non-pitting edema present bilaterally Left medial foot wound with exposure of bone Vascular: Dorsalis pedis and posterior tibial pulses are 1+ bilaterally Capillary refill is under 2 seconds Skin temperature is warm bilaterally Neurologic: Protective sensation is absent on the plantar forefoot bilaterally Monofilament testing reveals decreased sensation in multiple plantar sites Musculoskeletal: Range of motion at the ankle and MTP joints is within normal limits. Strength is 5/5 in all tested muscle groups. Gait is antalgic due to offloading of the affected limb. Labs/Diagnostic Data Labs Test 02/01/25 11:12 02/01/25 10:10 02/01/25 06:05 01/31/25 15:17 Range/Units POC Glucose 115 H 70-106 mg/dl Random Vancomycin Level 14.2 H 5-10 ug/mL White Blood Count 6.8 4.4-10.8 10^3/uL Red Blood Count 3.67 L 4.0-5.20 10^6/uL Hemoglobin 10.1 L 12.2-16.2 g/dL Hematocrit 32.2 L 36.0-46.0 % Mean Corpuscular Volume 87.7 80.0-100.0 fL Mean Corpuscular Hemoglobin 27.6 L 28.0-32.0 pg Mean Corpuscular Hemoglobin Concent 31.5 L 32.0-36.0 g/dL Red Cell Distribution Width 18.1 H 11.8-14.3 % Platelet Count 279 140-450 10^3/uL Mean Platelet Volume 8.6 6.9-10.8 fL Neutrophils (%) (Auto) 68.1 37.0-80.0 % Lymphocytes (%) (Auto) 18.6 10.0-50.0 % Monocytes (%) (Auto) 9.7 0.0-12.0 % Eosinophils (%) (Auto) 3.1 0.0-7.0 % Basophils (%) (Auto) 0.5 0.0-2.0 % Neutrophils # (Auto) 4.6 1.6-8.6 10 ^3/uL Lymphocytes # (Auto) 1.3 0.4-5.4 10 ^3/uL Monocytes # (Auto) 0.7 0-1.3 10 ^3/uL Eosinophils # (Auto) 0.2 0-0.8 10 ^3/uL Basophils # (Auto) 0 0-0.2 10 ^3/uL Nucleated Red Blood Cells 0.1 % Sodium Level 137 136-145 mmol/L Potassium Level 4.4 3.5-5.1 mmol/L Chloride Level 104 98-107 mmol/L Carbon Dioxide Level 26 20-31 mmol/L Anion Gap 7 5-15 Blood Urea Nitrogen 21 9-23 mg/dL Creatinine 1.04 H 0.550-1.02 mg/dL Glomerular Filtration Rate Calc 52 >90 mL/min BUN/Creatinine Ratio 20.2 H 10.0-20.0 Serum Glucose 114 H 74-106 mg/dL Calcium Level 8.4 L 8.7-10.4 mg/dL Total Bilirubin 0.4 0.2-1.0 mg/dL Aspartate Amino Transferase (AST) 41 H 13-40 U/L Alanine Aminotransferase (ALT) 14 7-40 U/L Alkaline Phosphatase 140 H 46-116 U/L Total Protein 7.2 5.7-8.2 g/dL Albumin 2.9 L 3.2-4.8 g/dL Prothrombin Time 11.4 9.3-11.8 sec Prothrombin Time INR 1.08 0.9-1.15 Test 01/31/25 15:02 01/31/25 10:10 Range/Units Urine Color Light-yellow Yellow Urine Clarity Clear Clear Urine pH 6.0 5.0-9.0 Urine Specific [place] 1.012 1.001-1.035 Urine Protein 1+ H Negative Urine Ketones Negative Negative Urine Blood Trace H Negative /uL Urine Nitrite Negative Negative Urine Bilirubin Negative Negative Urine Urobilinogen Normal Negative mg/dL Urine Leukocyte Esterase 1+ Negative /uL Urine RBC 3 0 - 4 /hpf Urine Microscopic WBC 4 0-5 /HPF Urine Squamous Epithelial Cells Few <5 /hpf Urine Bacteria None seen None Seen /hpf Urine Yeast (Budding) Occasional None Seen /hpf Urine Glucose 4+ H Normal mg/dL C-Reactive Protein High Sensitivity 7.12 H <1.0 mg/dL Problems(with codes): (1) Hyperkalemia (2) Generalized weakness (3) Cellulitis of foot (4) Abscess of foot (5) Elevated troponin (6) Non-STEMI (non-ST elevated myocardial infarction) (7) Gangrene of foot (8) Osteomyelitis of ankle and foot (9) Osteolysis of left foot Plan/Recommendation ASSESSMENT: Patient is a 89 year old seen on the floor for a worsening ulcer PLAN: - The patients chart was reviewed, clinical findings were discussed with the patient, the etiologies of the conditions were discussed in detail, and a treatment plan was agreed to at this time, with both oral and written instructions provided. - reviewed advanced imaging - discussed plan is to perform an incision and drainage possible biopsy - patient has been NPO since midnight - take him to the OR today - we will get cultures in the OR - can weightbear as tolerated in postoperative shoe All questions were answered and concerns addressed to the patient's satisfaction. The patient was given the phone number to the clinic and was told how to make contact with the clinic should any concerns or questions arise. Patient understands that if any questions or concerns arise prior to the next appointment, we should be contacted immediately. FOLLOW-UP: Continue to follow while inpatient Plan discussed with: Patient Date of Service: Feb 01, 2025 Billing Provider: SILVINA JONES DPM Common Visit Codes: CONSULT ONLY Consultation Codes: [id number] CONSULT <80MIN SILVINA JONES DPM Feb 01, 2025 12:51
[2025-02-01] MEDS: ceFAZolin 2 GM/D5W50ml 50 ML IV ONE (14:47)
[2025-02-01] MEDS ORDERED: ONDANSETRON HCL 4 MG/2 ML VIAL ONE (15:14)
[2025-02-01] MEDS ORDERED: LIDOCAINE 2% (LOCAL ANESTH.) PF 5ml SDV ONE (15:14)
[2025-02-01] MEDS ORDERED: PROPOFOL 10 MG/ML 20 ML IV ONE (15:14)
[2025-02-01] MEDS ORDERED: GLYCOPYRROLATE 0.2 MG/ML 1ML VIAL ONE (15:14)
[2025-02-01] MEDS ORDERED: KETOROLAC TROMETH 30 MG/ML 1ML VIAL ONE (15:14)
[2025-02-01] MEDS ORDERED: DexAMETHasone SOD PHOS 10MG/1ML VIAL INJ ONE (15:14)
[2025-02-01] MEDS: BUPIVACAINE 0.5% MPF INJ 30ML SDV IJ ONE (15:15)
--- NOTE | 2025-02-01 15:24 | DVHOP2 ---
Operative Report - 2 Report Details Date: 02/01/25 Preop Diagnosis: 1. Left foot osteomyelitis 2. Left foot abscess 3. Left foot cellulitis 4. Left foot diabetic ulcer Postop Diagnosis: Same as preop Surgeon: Silvina Jones MD Anesthesiologist: See anesthesia Anesthesia: Mac Consent: The patient was informed of the risks and benefits of the procedure. These include but are not limited to complications of anesthesia, postoperative infection, incomplete relief of symptoms, recurrence of symptoms, damage to blood vessels, nerves and tendons, deep venous thrombosis, pulmonary embolism and possible need for repeat surgery in the future. Complications: None Estimated Blood Loss: Minimal Fluids: See anesthesia Findings: Consistent with the diagnosis Indications for Surgery: Worsening left foot wound Name of Procedure Performed 1. Left foot I&D to bone () 2. Left foot second metatarsal bone biopsy () 3. Left foot first metatarsal bone biopsy () Procedure Details Procedure Details: PRE-PROCEDURE INFORMATION: In the pre-op holding area, the extremity to be operated on was clearly marked and the patient verified correct laterality of the marking. The patient was transferred to the OR table and placed in a supine position. A timeout was performed in which identification of the correct patient, procedure, location, and materials was done. The left foot and leg were prepped and draped in normal sterile fashion. DESCRIPTION OF PROCEDURE: Attention was directed to the left where area of fluctuance was noted. An incision was made over this area and was deepened through blunt dissection. The incision was deepened to the level of abscess and bone. Care was taken to the dissection to avoid any neurovascular and tendinous structures. The incision was deepened to the bone, and the abscess appeared to be purulent fluid consistent with pus. The cortices of the bone was then removed with rongeur an all necrotic tissue. After the abscess was drained, the area was irrigated with 3 L normal saline using cysto tubing. Deep cultures were then obtained from the wound. The area was then inspected and any areas of tracking, especially along the tendons were also drained. A bone biopsy was then taken of the 2nd metatarsal which was deepened to the muscle belly and tendons. The bone was then sent to pathology to determine the extent of osteomyelitis. A bone biopsy was then taken of the 1st metatarsal which was deepened to the muscle belly and tendons. The bone was then sent to pathology to determine the extent of osteomyelitis. The wound was packed with Betadine- soaked gauze and we will need to be closed at a later date. POSTOPERATIVE INFORMATION: The patient tolerated the above noted procedure and anesthesia well and was transferred to the PACU with vital signs stable, and vascular status intact with capillary refill intact to all digits. Patient will return to the floor and continue IV antibiotics. Patient should have a CTA of the lower extremity to see if there is any way to increase the blood flow as there was minimal in the OR and she we will be unable to heal at this point. Specimen: First metatarsal and second metatarsal Condition Good Disposition Still a Patient SILVINA JONES DPM Feb 01, 2025 15:24
[2025-02-01] MEDS ORDERED: KETAMINE 50mg/ML 1ml syringe ONE (15:28)
[2025-02-01] MEDS ORDERED: fentaNYL CITRATE 100 MCG/2 ML VL IV PRN (16:15)
[2025-02-01] MEDS ORDERED: ONDANSETRON HCL 4 MG/2 ML VIAL IV PRN (16:15)
[2025-02-01] MEDS ORDERED: ePHEDrine SULFATE 50 MG/ML AMP IV PRN (16:15)
[2025-02-01] MEDS ORDERED: hydrALAZINE HCL 20 MG/ML VL IV PRN (16:15)
[2025-02-01] MEDS ORDERED: FLUMAZENIL 0.1 MG/ML INJ 10ML MDV IV PRN (16:15)
[2025-02-01] MEDS ORDERED: HYDROmorphone HCL 2 MG/ML VL/or syr IV PRN (16:15)
[2025-02-01] MEDS ORDERED: NALOXONE HCL 0.4 MG/ML VIAL IV PRN (16:15)
--- NOTE | 2025-02-01 19:07 | DVHPNRES ---
Progress Note Date Seen: Feb 01, 2025 Resident Creating Document: SEE SHAFER RESIDENT Medical Necessity Reason Pt with a Central, PICC or Fol: No Subjective Review of Systems Patient is 89-year-old female with past medical history of diabetes mellitus , osteomyelitis, myocardial infarction who presented to hospital with a chief complaint of left foot pain associated with discoloration of 3rd toe. As per family patient had amputation of left great toe and the 2nd toe one week ago and was discharged home with IV antibiotic. Patient also complaining of mild diarrhea for past 2-3 days and worsening discoloration of 3rd toe and pain prompted visit to the hospital. Patient underwent food CT which showed osteomyelitis in the 1st metatarsal head. Podiatry consultation was done and underwent I and D today. Patient seen and examined at bedside. Patient complaining of mild left foot pain. Patient denying any other symptoms including fever, chills, chest pain, shortness of breath, any other symptoms. ROS Eyes: No Pain, No Vision change, No Conjunctivae inflammation, No Eyelid inflammation, No Other, No Redness ENT: No Ear pain, No Ear discharge, No Nose pain, No Nose discharge, No Nose congestion, No Mouth pain, No Mouth swelling, No Throat pain, No Throat swelling, No Other Cardiovascular: No Chest Pain, No Palpitations, No Orthopnea, No Paroxysmal Noc. Dyspnea, No Edema, No Lt Headedness, No Other Respiratory: No Cough, No Dry, No Shortness of breath, No SOB with excertion, No Wheezing, No Hemoptysis, No Pleuritic Pain, No Sputum, No Other Gastrointestinal: No Nausea, No Vomiting, No Abdominal Pain, No Diarrhea, No Constipation, No Melena, No Hematochezia, No Other Genitourinary: No Dysuria, No Frequency, No Incontinence, No Hematuria, No Retention, No Other Musculoskeletal: No other, No neck pain, No shoulder pain, No arm pain, No back pain, No hand pain, No leg pain, foot pain Skin: No Rash, No Lesions, No Jaundice, No Bruising, No Other Objective vital signs Vital Sign Date Time Temp Pulse Resp B/P (MAP) Pulse Ox O2 Delivery O2 Flow Rate FiO2 02/01/25 16:56 97.6 79 16 145/46 (79) 98 97.6 02/01/25 15:47 Room Air 0 98 Total Intake and Output 01/31/25 01/31/25 02/01/25 15:00 23:00 07:00 Intake Total 568 ml Balance 568 ml medications Current Medications Medications Dose Ordered Sig/Sumanth Route Start Time Stop Time Status Last Admin Dose Admin Vancomycin HCl 0 ml @ 0 mls/hr UD IV 01/31/25 15:00 Clopidogrel Bisulfate 75 mg DAILY PO 02/01/25 10:00 02/01/25 11:18 75 MG Enalapril Maleate 10 mg DAILY PO 02/01/25 10:00 02/01/25 11:19 10 MG Patient Own Medication 10 mg DAILY PO 02/01/25 10:00 Patient Own Medication 20 unit QAM SC 02/01/25 07:00 Diagnostic Test (Pha) 1 strip ACHS 01/31/25 17:00 02/01/25 16:45 1 STRIP Insulin Human Regular ACHS SC 01/31/25 17:00 Dextrose 50 ml UD PRN IV 01/31/25 15:00 Sodium Chloride 10 ml Q8HR IV 01/31/25 22:00 02/01/25 14:00 10 ML Docusate Sodium 100 mg BIDPRN PRN PO 01/31/25 15:00 Acetaminophen 650 mg Q6HP PRN PO 01/31/25 15:00 Acetaminophen/ Hydrocodone Bitart 1 tab Q4HP PRN PO 01/31/25 15:00 01/31/25 22:53 1 TAB Hydromorphone HCl 0.5 mg Q4HP PRN IV 01/31/25 15:00 Ondansetron HCl 4 mg Q4HP PRN IV 01/31/25 15:00 Piperacillin Sod/ Tazobactam Sod 100 ml @ 25 mls/hr Q8H IV 01/31/25 22:15 02/01/25 16:44 25 MLS/HR Vancomycin HCl 100 ml @ 100 mls/hr Q24H IV 02/01/25 20:00 Examination General Appearance: Cooperative. Well developed. Well nourished. NAD Head Exam: Normal inspection Neck Exam: Normal inspection. Non-tender. Normal alignment Pulmonary/Respiratory: Chest non-tender. Clear bilateral breath sounds Cardiovascular/Chest: Regular rate and rhythm. No murmurs. No JVD. Peripheral Pulses: 2+ Radial (R). 2+ Radial (L). 2+ Pedal (R). 2+ Pedal (L) Abdominal Exam: Normal bowel sounds. Soft. Nontender. No hepatospenomegaly. No masses Ankle Exam: Negative ankle edema Lower extremities: Negative lower extremity edema, left foot 1st toe and 2nd toe amputation, discoloration of 3rd toe, bilateral pedal pulse present, capillary refill 102 seconds, left medial foot wound with exposure to bone, no exudate. Neuro/Mental Status: A&O x4. Coherent Thoughts/Psych: Normal thought pattern. Appropriate mood and affect. Good judgement and insight Appearance: In no acute distress Skin Exam: Normal inspection. Normal color. Warm. Dry laboratory and microbiology Laboratory Tests 02/01/25 06:05 Test 02/01/25 06:05 Range/Units Serum Glucose 114 H 74-106 mg/dL Microbiology Date/Time Source Procedure Growth Status 01/31/25 23:59 Nose MRSA Screen - Final Complete Problem List/Assessment/Plan Problem List/Assessment/Plan Left foot osteomyelitis Left foot cellulitis Left foot gangrene Left foot abscess Left foot diabetic ulcer -IV antibiotic with cefepime, vancomycin -blood culture -pending culture report of biopsy sample. -podiatry on board -wound care -diabetic control Diabetes mellitus type 2 with diabetic neuropathy HGB A1c 6.7 on 01/15/2025 -insulin 20 units subQ q.a.m. -insulin sliding scale -dapagliflozin 10 mg p.o. daily History of Coronary artery disease status post PTCA -on Plavix 75 mg p.o. daily, atorvastatin 20 mg p.o. daily Hypertension -resume home meds PUD prophylaxis with Protonix DVT prophylaxis : SCD Goals of care discussed greater than 24 minutes, full code status. Plan discussed with Dr. Marte Plan discussed with: Patient, Other (RN) My Orders My Orders Orders - SEE SHAFER Procedure Category Date Status Time Apply Barrier Cream BOBBY 02/01/25 In Process 13:57 * Dietary Consult CONS 02/01/25 Transmitted 16:07 Date of Service: Feb 01, 2025 Billing Provider: GIOVANI MARTE MD Common Visit Codes: [id number] INP/OBS CARE(HIGH) SEE SHAFER RESIDENT Feb 01, 2025 19:07 GIOVANI MARTE MD Feb 01, 2025 19:15
[2025-02-01] MEDS ORDERED: PANTOPRAZOLE 40 MG TAB PO ONE (19:15)
[2025-02-01] MEDS: VANCOMYCIN 750MG KIT 100 ML IV SCH (20:25)
[2025-02-01 20:30] LABS: % Iron Saturation 12.2 % (15-50)
[2025-02-01] MEDS: ATORVASTATIN 20 MG TAB PO SCH (22:30)
[2025-02-02] VITALS (8 sets, daily range): BP systolic 112–155; BP diastolic 47–59; PULSE 60–75; RESP 15–16; TEMP 97.4–97.7; O2SAT 94–99
[2025-02-02] MEDS: PANTOPRAZOLE 40 MG TAB PO SCH (05:31)
[2025-02-02 07:50] LABS: Alanine Aminotransferase 14 U/L (7-40); Anion Gap 8 (5-15); Aspartate Aminotransferase 34 U/L (13-40); BUN/Creatinine Ratio 21.4 (10.0-20.0); Bilirubin, Total 0.3 mg/dL (0.2-1.0); Carbon Dioxide 26 mmol/L (20-31); Chloride 103 mmol/L (98-107); Potassium 4.7 mmol/L (3.5-5.1); Sodium 137 mmol/L (136-145); Total Protein 7.2 g/dL (5.7-8.2)
[2025-02-02 07:52] LABS: Basophils # (auto) 0 10 ^3/uL (0-0.2); Basophils % (auto) 0.1 % (0.0-2.0); Eosinophils # (auto) 0 10 ^3/uL (0-0.8); Hematocrit 29.5 % (36.0-46.0); Hemoglobin 9.5 g/dL (12.2-16.2); Lymphocytes # (auto) 0.8 10 ^3/uL (0.4-5.4); Lymphocytes % (auto) 7.8 % (10.0-50.0); Mean Corpuscular Hemoglobin 27.7 pg (28.0-32.0); Mean Corpuscular Hgb Conc. 32.2 g/dL (32.0-36.0); Mean Corpuscular Volume 86.1 fL (80.0-100.0); Monocytes # (auto) 0.4 10 ^3/uL (0-1.3); Monocytes % (auto) 3.5 % (0.0-12.0); Neutrophils # (auto) 9.1 10 ^3/uL (1.6-8.6); Neutrophils % (auto) 88.6 % (37.0-80.0); Platelet Count (auto) 266 10^3/uL (140-450); Red Blood Cells 3.43 10^6/uL (4.0-5.20); Red Cell Distribution Width 18.1 % (11.8-14.3); White Blood Cell 10.3 10^3/uL (4.4-10.8)
[2025-02-02 08:01] LABS: Alkaline Phosphatase 117 U/L (46-116); Blood Urea Nitrogen 27 mg/dL (9-23); Calcium 8.4 mg/dL (8.7-10.4); Glucose 193 mg/dL (74-106)
[2025-02-02] MEDS: LINEZOLID 600MG/300ML 300 ML IV SCH (10:00)
[2025-02-02] MEDS: SODIUM CHLORIDE 0.9% 1,000 ML IV SCH (10:01)
[2025-02-02] MEDS: FERROUS SULFATE 325mg EC TAB PO ONE (11:27)
--- NOTE | 2025-02-02 16:24 | DVHPNRES ---
Progress Note Date Seen: Feb 02, 2025 Resident Creating Document: SEE SHAFER RESIDENT Medical Necessity Reason Pt with a Central, PICC or Fol: No Subjective Review of Systems Patient is 89-year-old female with past medical history of diabetes mellitus , osteomyelitis, myocardial infarction who presented to hospital with a chief complaint of left foot pain associated with discoloration of 3rd toe. As per family patient had amputation of left great toe and the 2nd toe one week ago and was discharged home with IV antibiotic. Patient also complaining of mild diarrhea for past 2-3 days and worsening discoloration of 3rd toe and pain prompted visit to the hospital. Patient seen and examined at bedside. Status post day two I and D. Patient complaining of mild left foot pain. Patient denying any other symptoms including fever, chills, chest pain, shortness of breath, any other symptoms. ROS Eyes: No Pain, No Vision change, No Conjunctivae inflammation, No Eyelid inflammation, No Other, No Redness ENT: No Ear pain, No Ear discharge, No Nose pain, No Nose discharge, No Nose congestion, No Mouth pain, No Mouth swelling, No Throat pain, No Throat swelling, No Other Cardiovascular: No Chest Pain, No Palpitations, No Orthopnea, No Paroxysmal Noc. Dyspnea, No Edema, No Lt Headedness, No Other Respiratory: No Cough, No Dry, No Shortness of breath, No SOB with excertion, No Wheezing, No Hemoptysis, No Pleuritic Pain, No Sputum, No Other Gastrointestinal: No Nausea, No Vomiting, No Abdominal Pain, No Diarrhea, No Constipation, No Melena, No Hematochezia, No Other Genitourinary: No Dysuria, No Frequency, No Incontinence, No Hematuria, No Retention, No Other Musculoskeletal: No other, No neck pain, No shoulder pain, No a Objective vital signs Vital Sign Date Time Temp Pulse Resp B/P (MAP) Pulse Ox O2 Delivery O2 Flow Rate FiO2 02/02/25 12:55 97.7 63 15 128/52 (77) 99 97.7 02/01/25 20:30 Room Air* 0 21 Total Intake and Output 02/01/25 02/01/25 02/02/25 15:00 23:00 07:00 Intake Total 200 ml 440 ml 500 ml Balance 200 ml 440 ml 500 ml medications Current Medications Medications Dose Ordered Sig/Sumanth Route Start Time Stop Time Status Last Admin Dose Admin Clopidogrel Bisulfate 75 mg DAILY PO 02/01/25 10:00 02/02/25 09:59 75 MG Enalapril Maleate 10 mg DAILY PO 02/01/25 10:00 02/02/25 10:22 10 MG Patient Own Medication 20 unit QAM SC 02/01/25 07:00 Diagnostic Test (Pha) 1 strip ACHS 01/31/25 17:00 02/02/25 12:02 1 STRIP Insulin Human Regular ACHS SC 01/31/25 17:00 02/02/25 12:09 4 UNITS Dextrose 50 ml UD PRN IV 01/31/25 15:00 Sodium Chloride 10 ml Q8HR IV 01/31/25 22:00 02/02/25 13:43 10 ML Docusate Sodium 100 mg BIDPRN PRN PO 01/31/25 15:00 Acetaminophen 650 mg Q6HP PRN PO 01/31/25 15:00 Acetaminophen/ Hydrocodone Bitart 1 tab Q4HP PRN PO 01/31/25 15:00 01/31/25 22:53 1 TAB Hydromorphone HCl 0.5 mg Q4HP PRN IV 01/31/25 15:00 Ondansetron HCl 4 mg Q4HP PRN IV 01/31/25 15:00 Piperacillin Sod/ Tazobactam Sod 100 ml @ 25 mls/hr Q8H IV 01/31/25 22:15 02/02/25 14:46 25 MLS/HR Atorvastatin Calcium 20 mg HS PO 02/01/25 22:00 02/01/25 22:30 20 MG Pantoprazole Sodium 40 mg DAILY@0600 PO 02/02/25 06:00 02/02/25 05:31 40 MG Linezolid 300 ml @ 150 mls/hr Q12HR IV 02/02/25 10:00 02/02/25 10:00 150 MLS/HR Sodium Chloride 1,000 ml @ 100 mls/hr Q10H IV 02/02/25 08:45 02/02/25 10:01 100 MLS/HR Ferrous Sulfate 325 mg BIDWM PO 02/02/25 18:00 Examination General Appearance: Cooperative. Well developed. Well nourished. NAD Head Exam: Normal inspection Neck Exam: Normal inspection. Non-tender. Normal alignment Pulmonary/Respiratory: Chest non-tender. Clear bilateral breath sounds Cardiovascular/Chest: Regular rate and rhythm. No murmurs. No JVD. Peripheral Pulses: 2+ Radial (R). 2+ Radial (L). 2+ Pedal (R). 2+ Pedal (L) Abdominal Exam: Normal bowel sounds. Soft. Nontender. No hepatospenomegaly. No masses Ankle Exam: Negative ankle edema Lower extremities: Negative lower extremity edema, left foot 1st toe and 2nd toe amputation, discoloration of 3rd toe, bilateral pedal pulse present, capillary refill 102 seconds, left medial foot wound with exposure to bone, no exudate. Neuro/Mental Status: A&O x4. Coherent Thoughts/Psych: Normal thought pattern. Appropriate mood and affect. Good judgement and insight Appearance: In no acute distress Skin Exam: Normal inspection. Normal color. Warm. Dry laboratory and microbiology Laboratory Tests 02/02/25 06:45 Test 02/02/25 06:45 Range/Units Serum Glucose 193 H 74-106 mg/dL Microbiology Date/Time Source Procedure Growth Status 01/31/25 23:59 Nose MRSA Screen - Final Complete Problem List/Assessment/Plan Problem List/Assessment/Plan Left foot osteomyelitis Left foot cellulitis Left foot gangrene Left foot abscess Left foot diabetic ulcer -IV antibiotic with cefepime, vancomycin -blood culture -pending culture report of biopsy sample. -podiatry on board -wound care -diabetic control -consultation of endovascular surgeon for evaluation of possible midfoot amputation. Procedure on February 01, 2025 1. Left foot I&D to bone 2. Left foot second metatarsal bone biopsy 3. Left foot first metatarsal bone biopsy Diabetes mellitus type 2 with diabetic neuropathy HGB A1c 6.7 on 01/15/2025 -insulin 20 units subQ q.a.m. -insulin sliding scale -dapagliflozin 10 mg p.o. daily History of Coronary artery disease status post PTCA -on Plavix 75 mg p.o. daily, atorvastatin 20 mg p.o. daily Hypertension -resume home meds PUD prophylaxis with Protonix DVT prophylaxis : SCD Goals of care discussed greater than 24 minutes, full code status. Plan discussed with Dr. Marte Plan discussed with: Patient, Other (RN) My Orders My Orders Orders - SEE SHAFER RESIDENT Procedure Category Date Status Time Blood Culture MARY 02/01/25 In Process 18:50 Atorvastatin (Lipitor) PHA 02/01/25 In Process 22:00 Pantoprazole Tablet PHA 02/02/25 In Process (Protonix Tablet) 06:00 Linezolid 600mg/300ml PHA 02/02/25 In Process (Zyvox) 10:00 Sodium Chloride 0.9% PHA 02/02/25 In Process 08:45 Ferrous Sulfate Tablet PHA 02/02/25 In Process 18:00 Consult CONS 02/02/25 Transmitted Vascular/Endovascular 16:20 Dietary Evaluation Review Comments: 1) CCHO 60 + cardiac diet 2) Michele 1 pk daily (ordered per [facility] protocol) 3) Continue current plan of care Expected Outcomes/Goals: To meet >75% estimated needs Fu 3-5 days Date of Service: Feb 02, 2025 Billing Provider: GIOVANI MARTE MD Common Visit Codes: [id number] INP/OBS CARE(HIGH) SEE SHAFER RESIDENT Feb 02, 2025 16:24 GIOVANI MARTE MD Feb 03, 2025 13:18
[2025-02-02] MEDS: FERROUS SULFATE 325mg EC TAB PO SCH (17:57)
[2025-02-03] VITALS (8 sets, daily range): BP systolic 124–147; BP diastolic 40–58; PULSE 64–69; RESP 15–17; TEMP 97.7–98.1; O2SAT 96–100
[2025-02-03 08:17] LABS: Basophils # (auto) 0 10 ^3/uL (0-0.2); Basophils % (auto) 0.2 % (0.0-2.0); Eosinophils # (auto) 0 10 ^3/uL (0-0.8); Eosinophils % (auto) 0.6 % (0.0-7.0); Hematocrit 29.6 % (36.0-46.0); Hemoglobin 9.3 g/dL (12.2-16.2); Lymphocytes # (auto) 1.5 10 ^3/uL (0.4-5.4); Lymphocytes % (auto) 18.8 % (10.0-50.0); Mean Corpuscular Hemoglobin 27.3 pg (28.0-32.0); Mean Corpuscular Hgb Conc. 31.4 g/dL (32.0-36.0); Mean Corpuscular Volume 86.9 fL (80.0-100.0); Monocytes # (auto) 0.5 10 ^3/uL (0-1.3); Monocytes % (auto) 6.6 % (0.0-12.0); Neutrophils # (auto) 5.8 10 ^3/uL (1.6-8.6); Neutrophils % (auto) 73.8 % (37.0-80.0); Platelet Count (auto) 255 10^3/uL (140-450); Red Blood Cells 3.41 10^6/uL (4.0-5.20); Red Cell Distribution Width 18.1 % (11.8-14.3); White Blood Cell 7.9 10^3/uL (4.4-10.8)
[2025-02-03 08:18] LABS: Chloride 106 mmol/L (98-107); Potassium 4.4 mmol/L (3.5-5.1); Sodium 140 mmol/L (136-145)
[2025-02-03 08:19] LABS: Anion Gap 7 (5-15); Carbon Dioxide 27 mmol/L (20-31)
[2025-02-03 08:24] LABS: BUN/Creatinine Ratio 22.8 (10.0-20.0)
[2025-02-03 08:27] LABS: Blood Urea Nitrogen 23 mg/dL (9-23); Calcium 8.4 mg/dL (8.7-10.4); Glucose 141 mg/dL (74-106)
--- NOTE | 2025-02-03 14:15 | DVHPNRES ---
Progress Note Date Seen: Feb 03, 2025 Resident Creating Document: SEE SHAFER RESIDENT Medical Necessity Reason Pt with a Central, PICC or Fol: No Subjective Review of Systems Patient is 89-year-old female with past medical history of diabetes mellitus , osteomyelitis, myocardial infarction who presented to hospital with a chief complaint of left foot pain associated with discoloration of 3rd toe. As per family patient had amputation of left great toe and the 2nd toe one week ago and was discharged home with IV antibiotic. Patient also complaining of mild diarrhea for past 2-3 days and worsening discoloration of 3rd toe and pain prompted visit to the hospital. Patient seen and examined at bedside. Continued to have mild left foot pain. Undergoing IV antibiotic treatment, and IV fluids. Kidney function significantly improved. Pending vascular surgeon consultation. ROS Eyes: No Pain, No Vision change, No Conjunctivae inflammation, No Eyelid inflammation, No Other, No Redness ENT: No Ear pain, No Ear discharge, No Nose pain, No Nose discharge, No Nose congestion, No Mouth pain, No Mouth swelling, No Throat pain, No Throat swelling, No Other Cardiovascular: No Chest Pain, No Palpitations, No Orthopnea, No Paroxysmal Noc. Dyspnea, No Edema, No Lt Headedness, No Other Respiratory: No Cough, No Dry, No Shortness of breath, No SOB with excertion, No Wheezing, No Hemoptysis, No Pleuritic Pain, No Sputum, No Other Gastrointestinal: No Nausea, No Vomiting, No Abdominal Pain, No Diarrhea, No Constipation, No Melena, No Hematochezia, No Other Genitourinary: No Dysuria, No Frequency, No Incontinence, No Hematuria, No Retention, No Other Musculoskeletal: No other, No neck pain, No shoulder pain, No a Objective vital signs Vital Sign Date Time Temp Pulse Resp B/P (MAP) Pulse Ox O2 Delivery O2 Flow Rate FiO2 02/03/25 10:11 125/40 02/03/25 08:15 98.1 68 15 96 98.1 02/02/25 20:00 Room Air* 0 21 Total Intake and Output 02/02/25 02/02/25 02/03/25 15:00 23:00 07:00 Intake Total 834 ml 1030 ml 1200 ml Balance 834 ml 1030 ml 1200 ml medications Current Medications Medications Dose Ordered Sig/Sumanth Route Start Time Stop Time Status Last Admin Dose Admin Clopidogrel Bisulfate 75 mg DAILY PO 02/01/25 10:00 02/03/25 10:11 75 MG Enalapril Maleate 10 mg DAILY PO 02/01/25 10:00 02/03/25 10:11 10 MG Patient Own Medication 20 unit QAM SC 02/01/25 07:00 Diagnostic Test (Pha) 1 strip ACHS 01/31/25 17:00 02/03/25 11:30 1 STRIP Insulin Human Regular ACHS SC 01/31/25 17:00 02/03/25 12:34 3 UNITS Dextrose 50 ml UD PRN IV 01/31/25 15:00 Sodium Chloride 10 ml Q8HR IV 01/31/25 22:00 02/03/25 05:33 10 ML Docusate Sodium 100 mg BIDPRN PRN PO 01/31/25 15:00 Acetaminophen 650 mg Q6HP PRN PO 01/31/25 15:00 Acetaminophen/ Hydrocodone Bitart 1 tab Q4HP PRN PO 01/31/25 15:00 01/31/25 22:53 1 TAB Hydromorphone HCl 0.5 mg Q4HP PRN IV 01/31/25 15:00 Ondansetron HCl 4 mg Q4HP PRN IV 01/31/25 15:00 Piperacillin Sod/ Tazobactam Sod 100 ml @ 25 mls/hr Q8H IV 01/31/25 22:15 02/03/25 05:34 25 MLS/HR Atorvastatin Calcium 20 mg HS PO 02/01/25 22:00 02/02/25 21:40 20 MG Pantoprazole Sodium 40 mg DAILY@0600 PO 02/02/25 06:00 02/03/25 05:33 40 MG Linezolid 300 ml @ 150 mls/hr Q12HR IV 02/02/25 10:00 02/03/25 12:06 150 MLS/HR Sodium Chloride 1,000 ml @ 100 mls/hr Q10H IV 02/02/25 08:45 02/02/25 18:32 100 MLS/HR Ferrous Sulfate 325 mg BIDWM PO 02/02/25 18:00 02/03/25 10:12 325 MG Examination General Appearance: Cooperative. Well developed. Well nourished. NAD Head Exam: Normal inspection Neck Exam: Normal inspection. Non-tender. Normal alignment Pulmonary/Respiratory: Chest non-tender. Clear bilateral breath sounds Cardiovascular/Chest: Regular rate and rhythm. No murmurs. No JVD. Peripheral Pulses: 2+ Radial (R). 2+ Radial (L). 2+ Pedal (R). 2+ Pedal (L) Abdominal Exam: Normal bowel sounds. Soft. Nontender. No hepatospenomegaly. No masses Ankle Exam: Negative ankle edema Lower extremities: Negative lower extremity edema, left foot 1st toe and 2nd toe amputation, discoloration of 3rd toe, bilateral pedal pulse present, capillary refill 102 seconds, left medial foot wound with exposure to bone, no exudate. Neuro/Mental Status: A&O x4. Coherent Thoughts/Psych: Normal thought pattern. Appropriate mood and affect. Good judgement and insight Appearance: In no acute distress Skin Exam: Normal inspection. Normal color. Warm. Dry laboratory and microbiology Laboratory Tests 02/03/25 07:22 Test 02/03/25 07:22 Range/Units Serum Glucose 141 H 74-106 mg/dL Microbiology Date/Time Source Procedure Growth Status 02/01/25 19:44 Blood Blood Culture - Preliminary NO GROWTH AFTER 24 HOURS OF INCUBATION. Resulted 01/31/25 23:59 Nose MRSA Screen - Final Complete Problem List/Assessment/Plan Problem List/Assessment/Plan Left foot osteomyelitis Left foot cellulitis Left foot gangrene Left foot abscess Left foot diabetic ulcer -IV antibiotic with cefepime, vancomycin -blood culture: Pending -pending culture report of biopsy sample. -podiatry on board -wound care -diabetic control -consultation of endovascular surgeon for evaluation of possible midfoot amputation. Procedure on February 01, 2025 1. Left foot I&D to bone 2. Left foot second metatarsal bone biopsy 3. Left foot first metatarsal bone biopsy Diabetes mellitus type 2 with diabetic neuropathy HGB A1c 6.7 on 01/15/2025 -insulin 20 units subQ q.a.m. -insulin sliding scale -dapagliflozin 10 mg p.o. daily History of Coronary artery disease status post PTCA -on Plavix 75 mg p.o. daily, atorvastatin 20 mg p.o. daily Hypertension -resume home meds PUD prophylaxis with Protonix DVT prophylaxis : SCD Goals of care discussed greater than 24 minutes, full code status. Plan discussed with Dr. Marte Plan discussed with: Patient, Other (RN) My Orders My Orders Orders - SEE SHAFER Procedure Category Date Status Time Consult CONS 02/02/25 Transmitted Vascular/Endovascular 16:20 Dietary Evaluation Review Comments: 1) CCHO 60 + cardiac diet 2) Michele 1 pk daily (ordered per [facility] protocol) 3) Continue current plan of care Expected Outcomes/Goals: To meet >75% estimated needs Fu 3-5 days Date of Service: Feb 03, 2025 Billing Provider: GIOVANI MARTE MD Common Visit Codes: [id number] INP/OBS CARE(HIGH) SEE SHAFER Feb 03, 2025 14:15 GIOVANI MARTE MD Feb 03, 2025 15:18
[2025-02-04] VITALS (9 sets, daily range): BP systolic 134–167; BP diastolic 41–64; PULSE 69–78; RESP 15–18; TEMP 97.9–98.2; O2SAT 95–98
--- NOTE | 2025-02-04 07:38 | DVHCONRES ---
Date Seen: Feb 04, 2025 Resident Creating Document: SANDER SALAS Jr., MD Referring Physician cresencio Reason for Consultation severe pvd History of Present Illness 89 y.o female with PMHx of DM, NV, and osteomyelitis, presents to the ED for a chief complaint of left foot pain associated with discoloration of the third toe. Patient's family members report patient had an amputation of the left great toe and second toe one week ago at [facility] but mention that prior to discharge, noticed discoloration of the third toe as well. Patient was discharged with a PICC line for antibiotic and has had diarrhea for the past 2-3 days. Patient is now complaining of new onset pain to the third toe. Wound is clean and wrapped. No discharged, bleeding, fever, or chills reported. Pt. is well known to me I have performed multiple intervention on bilateral lower extremities. She has 1 vessel runoff of the bilateral lower extremities. High risk for limb loss. Past Medical History 89 y.o female with PMHx of DM, NV, and osteomyelitis, Past Surgical History prior endovascular interventions and digit amputations Family History: Diabetes mellitus G8 FATHER Social History non smoker Allergies: Coded Allergies: NO KNOWN ALLERGIES (Unverified , 11/03/24) Home Meds Active Scripts Insulin Glargine (Toujeo Max Solostar) 300 Unit/Ml Inj, 20 UNIT SC QAM for 30 Days, #2 INJ Prov:ANTHONY LAKHANI RESIDENT 11/10/24 Reported Medications Enalapril Maleate (Enalapril Maleate) 10 Mg Tab, 1 TAB PO DAILY for 90 Days, #90 11/05/24 Dapagliflozin Propanediol (Dapagliflozin Propanediol) 10 Mg Tab, 10 MG PO DAILY, TAB 11/04/24 Clopidogrel Bisulfate (CLOPIDOGREL) 75 Mg Tab, 1 TAB PO DAILY, #90 TAB 1 Refill 11/04/24 Vital Signs Vital Signs Date Time Temp Pulse Resp B/P (MAP) Pulse Ox O2 Delivery O2 Flow Rate FiO2 02/04/25 05:00 97.9 75 18 149/46 (80) 95 97.9 02/03/25 20:00 Room Air* 0 21 Physical Exam left foot bandaged secondary to recent surgery. non palpable pulses Labs/Diagnostic Data Labs Test 02/04/25 06:03 02/03/25 07:22 4/15/25 06:45 02/01/25 10:19 Range/Units POC Glucose 154 H 70-106 mg/dl White Blood Count 7.9 4.4-10.8 10^3/uL Red Blood Count 3.41 L 4.0-5.20 10^6/uL Hemoglobin 9.3 L 12.2-16.2 g/dL Hematocrit 29.6 L 36.0-46.0 % Mean Corpuscular Volume 86.9 80.0-100.0 fL Mean Corpuscular Hemoglobin 27.3 L 28.0-32.0 pg Mean Corpuscular Hemoglobin Concent 31.4 L 32.0-36.0 g/dL Red Cell Distribution Width 18.1 H 11.8-14.3 % Platelet Count 255 140-450 10^3/uL Mean Platelet Volume 8.7 6.9-10.8 fL Neutrophils (%) (Auto) 73.8 37.0-80.0 % Lymphocytes (%) (Auto) 18.8 10.0-50.0 % Monocytes (%) (Auto) 6.6 0.0-12.0 % Eosinophils (%) (Auto) 0.6 0.0-7.0 % Basophils (%) (Auto) 0.2 0.0-2.0 % Neutrophils # (Auto) 5.8 1.6-8.6 10 ^3/uL Lymphocytes # (Auto) 1.5 0.4-5.4 10 ^3/uL Monocytes # (Auto) 0.5 0-1.3 10 ^3/uL Eosinophils # (Auto) 0 0-0.8 10 ^3/uL Basophils # (Auto) 0 0-0.2 10 ^3/uL Nucleated Red Blood Cells 0.0 % Sodium Level 140 136-145 mmol/L Potassium Level 4.4 3.5-5.1 mmol/L Chloride Level 106 98-107 mmol/L Carbon Dioxide Level 27 20-31 mmol/L Anion Gap 7 5-15 Blood Urea Nitrogen 23 9-23 mg/dL Creatinine 1.01 0.550-1.02 mg/dL Glomerular Filtration Rate Calc 54 >90 mL/min BUN/Creatinine Ratio 22.8 H 10.0-20.0 Serum Glucose 141 H 74-106 mg/dL Calcium Level 8.4 L 8.7-10.4 mg/dL Ferritin 32.1 10-291 ng/mL Total Bilirubin 0.3 0.2-1.0 mg/dL Aspartate Amino Transferase (AST) 34 13-40 U/L Alanine Aminotransferase (ALT) 14 7-40 U/L Alkaline Phosphatase 117 H 46-116 U/L B-Type Natriuretic Peptide 842.31 0-100 pg/mL Total Protein 7.2 5.7-8.2 g/dL Albumin 3.0 L 3.2-4.8 g/dL Iron Level 33 L 50-170 ug/dL Total Iron Binding Capacity 270 250-425 ug/dL Percent Iron Saturation 12.2 L 15-50 % Test 02/01/25 10:10 01/31/25 15:17 01/31/25 15:02 01/31/25 10:10 Range/Units Random Vancomycin Level 14.2 H 5-10 ug/mL Prothrombin Time 11.4 9.3-11.8 sec Prothrombin Time INR 1.08 0.9-1.15 Urine Color Light-yellow Yellow Urine Clarity Clear Clear Urine pH 6.0 5.0-9.0 Urine Specific [place] 1.012 1.001-1.035 Urine Protein 1+ H Negative Urine Ketones Negative Negative Urine Blood Trace H Negative /uL Urine Nitrite Negative Negative Urine Bilirubin Negative Negative Urine Urobilinogen Normal Negative mg/dL Urine Leukocyte Esterase 1+ Negative /uL Urine RBC 3 0 - 4 /hpf Urine Microscopic WBC 4 0-5 /HPF Urine Squamous Epithelial Cells Few <5 /hpf Urine Bacteria None seen None Seen /hpf Urine Yeast (Budding) Occasional None Seen /hpf Urine Glucose 4+ H Normal mg/dL C-Reactive Protein High Sensitivity 7.12 H <1.0 mg/dL Microbiology Date/Time Source Procedure Growth Status 02/01/25 19:44 Blood Blood Culture - Preliminary NO GROWTH AFTER 48 HOURS OF INCUBATION. Resulted 01/31/25 23:59 Nose MRSA Screen - Final Complete Assessment Severe peripheral vascular disease. High-risk of poor wound healing secondary to one-vessel runoff to the foot. Recommend continue conservative management with podiatry. If needs more surgery most likely would require below-knee amputation. Plan/Recommendation Severe peripheral vascular disease. High-risk of poor wound healing secondary to one-vessel runoff to the foot. Recommend continue conservative management with podiatry. If needs more surgery most likely would require below-knee amputation. Plan discussed with: Patient SANDER SALAS Jr., MD Feb 04, 2025 07:38
[2025-02-04 08:03] LABS: Basophils # (auto) 0 10 ^3/uL (0-0.2); Basophils % (auto) 0.4 % (0.0-2.0); Eosinophils # (auto) 0.1 10 ^3/uL (0-0.8); Eosinophils % (auto) 0.6 % (0.0-7.0); Hematocrit 30.3 % (36.0-46.0); Hemoglobin 9.6 g/dL (12.2-16.2); Lymphocytes # (auto) 1.5 10 ^3/uL (0.4-5.4); Lymphocytes % (auto) 17.4 % (10.0-50.0); Mean Corpuscular Hemoglobin 27.5 pg (28.0-32.0); Mean Corpuscular Hgb Conc. 31.7 g/dL (32.0-36.0); Mean Corpuscular Volume 86.8 fL (80.0-100.0); Monocytes # (auto) 0.7 10 ^3/uL (0-1.3); Monocytes % (auto) 8.1 % (0.0-12.0); Neutrophils # (auto) 6.3 10 ^3/uL (1.6-8.6); Neutrophils % (auto) 73.5 % (37.0-80.0); Platelet Count (auto) 262 10^3/uL (140-450); Red Blood Cells 3.49 10^6/uL (4.0-5.20); Red Cell Distribution Width 18.1 % (11.8-14.3); White Blood Cell 8.6 10^3/uL (4.4-10.8)
--- NOTE | 2025-02-04 19:37 | DVHPNRES ---
Progress Note Date Seen: Feb 04, 2025 Resident Creating Document: SEE SHAFER RESIDENT Medical Necessity Reason Pt with a Central, PICC or Fol: No Subjective Review of Systems Patient is 89-year-old female with past medical history of diabetes mellitus , osteomyelitis, myocardial infarction who presented to hospital with a chief complaint of left foot pain associated with discoloration of 3rd toe. As per family patient had amputation of left great toe and the 2nd toe one week ago and was discharged home with IV antibiotic. Patient also complaining of mild diarrhea for past 2-3 days and worsening discoloration of 3rd toe and pain prompted visit to the hospital. Patient seen and examined at bedside. Continued to have mild left foot pain. Arranging IV antibiotic for osteomyelitis. ROS Eyes: No Pain, No Vision change, No Conjunctivae inflammation, No Eyelid inflammation, No Other, No Redness ENT: No Ear pain, No Ear discharge, No Nose pain, No Nose discharge, No Nose congestion, No Mouth pain, No Mouth swelling, No Throat pain, No Throat swelling, No Other Cardiovascular: No Chest Pain, No Palpitations, No Orthopnea, No Paroxysmal Noc. Dyspnea, No Edema, No Lt Headedness, No Other Respiratory: No Cough, No Dry, No Shortness of breath, No SOB with excertion, No Wheezing, No Hemoptysis, No Pleuritic Pain, No Sputum, No Other Gastrointestinal: No Nausea, No Vomiting, No Abdominal Pain, No Diarrhea, No Constipation, No Melena, No Hematochezia, No Other Genitourinary: No Dysuria, No Frequency, No Incontinence, No Hematuria, No Retention, No Other Musculoskeletal: No other, No neck pain, No shoulder pain, No a Objective vital signs Vital Sign Date Time Temp Pulse Resp B/P (MAP) Pulse Ox O2 Delivery O2 Flow Rate FiO2 02/04/25 17:33 70 158/41 (80) 02/04/25 17:00 98.1 15 98 98.1 02/04/25 08:00 Room Air* 0 21 Total Intake and Output 02/03/25 02/03/25 02/04/25 15:00 23:00 07:00 Intake Total 880 ml 250 ml 1600 ml Balance 880 ml 250 ml 1600 ml medications Current Medications Medications Dose Ordered Sig/Sumanth Route Start Time Stop Time Status Last Admin Dose Admin Clopidogrel Bisulfate 75 mg DAILY PO 02/01/25 10:00 02/04/25 09:47 75 MG Enalapril Maleate 10 mg DAILY PO 02/01/25 10:00 02/04/25 09:48 10 MG Patient Own Medication 20 unit QAM SC 02/01/25 07:00 Diagnostic Test (Pha) 1 strip ACHS 01/31/25 17:00 02/04/25 17:14 1 STRIP Insulin Human Regular ACHS SC 01/31/25 17:00 02/04/25 17:14 2 UNITS Dextrose 50 ml UD PRN IV 01/31/25 15:00 Sodium Chloride 10 ml Q8HR IV 01/31/25 22:00 02/04/25 14:42 10 ML Docusate Sodium 100 mg BIDPRN PRN PO 01/31/25 15:00 Acetaminophen 650 mg Q6HP PRN PO 01/31/25 15:00 Acetaminophen/ Hydrocodone Bitart 1 tab Q4HP PRN PO 01/31/25 15:00 02/04/25 17:42 1 TAB Hydromorphone HCl 0.5 mg Q4HP PRN IV 01/31/25 15:00 Ondansetron HCl 4 mg Q4HP PRN IV 01/31/25 15:00 Piperacillin Sod/ Tazobactam Sod 100 ml @ 25 mls/hr Q8H IV 01/31/25 22:15 02/04/25 14:47 25 MLS/HR Atorvastatin Calcium 20 mg HS PO 02/01/25 22:00 02/03/25 21:49 20 MG Pantoprazole Sodium 40 mg DAILY@0600 PO 02/02/25 06:00 02/04/25 05:41 40 MG Linezolid 300 ml @ 150 mls/hr Q12HR IV 02/02/25 10:00 02/04/25 10:02 150 MLS/HR Sodium Chloride 1,000 ml @ 100 mls/hr Q10H IV 02/02/25 08:45 02/04/25 12:33 100 MLS/HR Ferrous Sulfate 325 mg BIDWM PO 02/02/25 18:00 02/04/25 17:42 325 MG Examination General Appearance: Cooperative. Well developed. Well nourished. NAD Head Exam: Normal inspection Neck Exam: Normal inspection. Non-tender. Normal alignment Pulmonary/Respiratory: Chest non-tender. Clear bilateral breath sounds Cardiovascular/Chest: Regular rate and rhythm. No murmurs. No JVD. Peripheral Pulses: 2+ Radial (R). 2+ Radial (L). 2+ Pedal (R). 2+ Pedal (L) Abdominal Exam: Normal bowel sounds. Soft. Nontender. No hepatospenomegaly. No masses Ankle Exam: Negative ankle edema Lower extremities: Negative lower extremity edema, left foot 1st toe and 2nd toe amputation, discoloration of 3rd toe, bilateral pedal pulse present, capillary refill 102 seconds, left medial foot wound with exposure to bone, no exudate. Neuro/Mental Status: A&O x4. Coherent Thoughts/Psych: Normal thought pattern. Appropriate mood and affect. Good judgement and insight Appearance: In no acute distress Skin Exam: Normal inspection. Normal color. Warm. Dry laboratory and microbiology Laboratory Tests 02/04/25 06:52 02/03/25 07:22 Test 02/03/25 07:22 Range/Units Serum Glucose 141 H 74-106 mg/dL Microbiology Date/Time Source Procedure Growth Status 02/01/25 19:44 Blood Blood Culture - Preliminary NO GROWTH AFTER 48 HOURS OF INCUBATION. Resulted 01/31/25 23:59 Nose MRSA Screen - Final Complete Problem List/Assessment/Plan Problem List/Assessment/Plan Left foot osteomyelitis Left foot cellulitis Left foot gangrene Left foot abscess Left foot diabetic ulcer -IV antibiotic with cefepime, vancomycin -blood culture: Pending -pending culture report of biopsy sample. -podiatry on board -wound care -diabetic control -consultation of endovascular surgeon for evaluation of possible midfoot amputation. Procedure on February 01, 2025 1. Left foot I&D to bone 2. Left foot second metatarsal bone biopsy 3. Left foot first metatarsal bone biopsy Diabetes mellitus type 2 with diabetic neuropathy HGB A1c 6.7 on 01/15/2025 -insulin 20 units subQ q.a.m. -insulin sliding scale -dapagliflozin 10 mg p.o. daily History of Coronary artery disease status post PTCA -on Plavix 75 mg p.o. daily, atorvastatin 20 mg p.o. daily Hypertension -resume home meds PUD prophylaxis with Protonix DVT prophylaxis : SCD Goals of care discussed greater than 24 minutes, full code status. Lengthy discussion was done with zoila via phone with Swedish translation, information given including plan of arranging IV antibiotic at home, patient will be receiving antibiotic at least for six weeks, we will need follow with primary care physician for continuous follow-up blood work including CBC, possibility of eventually needed below-knee amputation given severe PID and worsening osteomyelitis. Extensive discussion done about plan of care and patient will be discharged tomorrow once home health with IV antibiotic and wound care has been arranged. Plan discussed with Dr. Marte Plan discussed with: Patient, Other My Orders My Orders Orders - SEE SHAFER RESIDENT Procedure Category Date Status Time * Mineral Economist CONS 02/04/25 Transmitted Consult Dietary Evaluation Review Comments: 1) CCHO 60 + cardiac diet 2) Michele 1 pk daily (ordered per [facility] protocol) 3) Continue current plan of care Expected Outcomes/Goals: To meet >75% estimated needs Fu 3-5 days Date of Service: Feb 04, 2025 Billing Provider: GIOVANI MARTE MD Common Visit Codes: [id number] INP/OBS CARE(MOD) SEE SHAFER RESIDENT Feb 04, 2025 19:37 GIOVANI MARTE MD Feb 05, 2025 09:54
[2025-02-05 01:00] VITALS: BP 129/41; PULSE 75; RESP 17; TEMP 98; O2SAT 99
[2025-02-05 05:00] VITALS: BP 127/58; PULSE 73; RESP 17; TEMP 98.2; O2SAT 96
[2025-02-05 08:20] LABS: Basophils # (auto) 0 10 ^3/uL (0-0.2); Basophils % (auto) 0.4 % (0.0-2.0); Eosinophils # (auto) 0.1 10 ^3/uL (0-0.8); Eosinophils % (auto) 0.7 % (0.0-7.0); Hematocrit 30.1 % (36.0-46.0); Hemoglobin 9.8 g/dL (12.2-16.2); Lymphocytes # (auto) 1.5 10 ^3/uL (0.4-5.4); Lymphocytes % (auto) 18.9 % (10.0-50.0); Mean Corpuscular Hemoglobin 28.2 pg (28.0-32.0); Mean Corpuscular Hgb Conc. 32.5 g/dL (32.0-36.0); Mean Corpuscular Volume 86.8 fL (80.0-100.0); Monocytes # (auto) 0.6 10 ^3/uL (0-1.3); Monocytes % (auto) 7.1 % (0.0-12.0); Neutrophils # (auto) 5.7 10 ^3/uL (1.6-8.6); Neutrophils % (auto) 72.9 % (37.0-80.0); Platelet Count (auto) 266 10^3/uL (140-450); Red Blood Cells 3.46 10^6/uL (4.0-5.20); Red Cell Distribution Width 18.5 % (11.8-14.3); White Blood Cell 7.9 10^3/uL (4.4-10.8)
[2025-02-05 08:27] LABS: Anion Gap 7 (5-15); Carbon Dioxide 25 mmol/L (20-31); Chloride 105 mmol/L (98-107); Potassium 4.3 mmol/L (3.5-5.1); Sodium 137 mmol/L (136-145)
[2025-02-05 08:28] LABS: Calcium 8.7 mg/dL (8.7-10.4)
[2025-02-05 08:33] LABS: BUN/Creatinine Ratio 14.9 (10.0-20.0); Blood Urea Nitrogen 14 mg/dL (9-23)
[2025-02-05] MEDS ORDERED: FER325T PO (08:34)
[2025-02-05] MEDS ORDERED: PANT40T PO (08:34)
[2025-02-05 08:37] LABS: Glucose 133 mg/dL (74-106)
[2025-02-05 09:00] VITALS: BP 140/57; PULSE 71; RESP 18; TEMP 98; O2SAT 97
[2025-02-05 13:00] VITALS: BP 149/45; PULSE 62; RESP 16; TEMP 97.8; O2SAT 99
[2025-02-05 13:28] VITALS: BP 140/57; PULSE 71; RESP 18; TEMP 98; O2SAT 97
--- NOTE | 2025-02-05 15:44 | DVHDSRES ---
Discharge Summary Date of Admission Resident Creating Document: SEE SHAFER RESIDENT Jan 31, 2025 at 14:52 Date of Discharge: Feb 05, 2025 Admitting Diagnosis left foot ostemomyelitis Labs/Diagnostic Data: Laboratory Results Test 02/05/25 11:05 02/05/25 07:16 02/03/25 07:22 02/02/25 06:45 POC Glucose 142 mg/dl (70-106) White Blood Count 7.9 10^3/uL (4.4-10.8) Red Blood Count 3.46 10^6/uL (4.0-5.20) Hemoglobin 9.8 g/dL (12.2-16.2) Hematocrit 30.1 % (36.0-46.0) Mean Corpuscular Volume 86.8 fL (80.0-100.0) Mean Corpuscular Hemoglobin 28.2 pg (28.0-32.0) Mean Corpuscular Hemoglobin Concent 32.5 g/dL (32.0-36.0) Red Cell Distribution Width 18.5 % (11.8-14.3) Platelet Count 266 10^3/uL (140-450) Mean Platelet Volume 8.7 fL (6.9-10.8) Neutrophils (%) (Auto) 72.9 % (37.0-80.0) Lymphocytes (%) (Auto) 18.9 % (10.0-50.0) Monocytes (%) (Auto) 7.1 % (0.0-12.0) Eosinophils (%) (Auto) 0.7 % (0.0-7.0) Basophils (%) (Auto) 0.4 % (0.0-2.0) Neutrophils # (Auto) 5.7 10 ^3/uL (1.6-8.6) Lymphocytes # (Auto) 1.5 10 ^3/uL (0.4-5.4) Monocytes # (Auto) 0.6 10 ^3/uL (0-1.3) Eosinophils # (Auto) 0.1 10 ^3/uL (0-0.8) Basophils # (Auto) 0 10 ^3/uL (0-0.2) Nucleated Red Blood Cells 0.0 % Sodium Level 137 mmol/L (136-145) Potassium Level 4.3 mmol/L (3.5-5.1) Chloride Level 105 mmol/L (98-107) Carbon Dioxide Level 25 mmol/L (20-31) Anion Gap 7 (5-15) Blood Urea Nitrogen 14 mg/dL (9-23) Creatinine 0.94 mg/dL (0.550-1.02) Glomerular Filtration Rate Calc 59 mL/min (>90) BUN/Creatinine Ratio 14.9 (10.0-20.0) Serum Glucose 133 mg/dL (74-106) Calcium Level 8.7 mg/dL (8.7-10.4) Ferritin 32.1 ng/mL (10-291) Total Bilirubin 0.3 mg/dL (0.2-1.0) Aspartate Amino Transferase (AST) 34 U/L (13-40) Alanine Aminotransferase (ALT) 14 U/L (7-40) Alkaline Phosphatase 117 U/L (46-116) B-Type Natriuretic Peptide 842.31 pg/mL (0-100) Total Protein 7.2 g/dL (5.7-8.2) Albumin 3.0 g/dL (3.2-4.8) Test 02/01/25 10:19 02/01/25 10:10 01/31/25 15:17 01/31/25 15:02 Iron Level 33 ug/dL (50-170) Total Iron Binding Capacity 270 ug/dL (250-425) Percent Iron Saturation 12.2 % (15-50) Random Vancomycin Level 14.2 ug/mL (5-10) Prothrombin Time 11.4 sec (9.3-11.8) Prothrombin Time INR 1.08 (0.9-1.15) Urine Color Light-yellow (Yellow) Urine Clarity Clear (Clear) Urine pH 6.0 (5.0-9.0) Urine Specific [place] 1.012 (1.001-1.035) Urine Protein 1+ (Negative) Urine Ketones Negative (Negative) Urine Blood Trace /uL (Negative) Urine Nitrite Negative (Negative) Urine Bilirubin Negative (Negative) Urine Urobilinogen Normal mg/dL (Negative) Urine Leukocyte Esterase 1+ /uL (Negative) Urine RBC 3 /hpf (0 - 4) Urine Microscopic WBC 4 /HPF (0-5) Urine Squamous Epithelial Cells Few /hpf (<5) Urine Bacteria None seen /hpf (None Seen) Urine Yeast (Budding) Occasional /hpf (None Urine Glucose 4+ mg/dL (Normal) Test 01/31/25 10:10 C-Reactive Protein High Sensitivity 7.12 mg/dL (<1.0) Other Laboratory Tests 02/05/25 07:16 Brief Hx & Hospital Course: Patient is 89-year-old female with past medical history of diabetes mellitus , osteomyelitis, myocardial infarction who presented to hospital with a chief complaint of left foot pain associated with discoloration of 3rd toe. As per family patient had amputation of left great toe and the 2nd toe one week ago and was discharged home with IV antibiotic. Patient also complaining of mild diarrhea for past 2-3 days and worsening discoloration of 3rd toe and pain prompted visit to the hospital. Patient was diagnosed with Left foot osteomyelitis, Left foot cellulitis, Left foot gangrene, Left foot abscess, Left foot diabetic ulcer. Underwent left foot I and D to bone, left foot 2nd metatarsal bone biopsy, left foot 1st metatarsal bone biopsy. Patient was given IV antibiotic with cefepime and vancomycin. Given worsening kidney function vancomycin was changed to linezolid. Given possible severe peripheral artery disease, vascular surgeon was consulted for possible requiring midfoot amputation, advised on conservative management with IV antibiotic and recommendation of podiatry, we will need continuous follow with IV antibiotic, regular checkup of foot with podiatry, IV antibiotic for six weeks and tight control of diabetes mellitus with insulin and dapagliflozin. IV antibiotic with home health has been arranged of linezolid and weekly CBC checkup and social service has been consulted for following of for lab results with primary care physician. Family agreed with the discharge plan and will follow with primary care physician for follow of left foot osteomyelitis. Consults/Reason for consult Condition at Discharge: Good Final Diagnosis/Problems List Left foot osteomyelitis Left foot cellulitis Left foot gangrene Left foot abscess Left foot diabetic ulcer Diabetes mellitus type 2 with diabetic neuropathy HGB A1c 6.7 on 01/15/2025 History of Coronary artery disease status post PTCA Hypertension Discharge Disposition: Home Discharge Instruct/Medications Diet: Consistent carbohydrate Activity: No Restrictions, As Tolerated Follow Up/Referral: -FOLLOW UP WITH pcp ON 5 DAYS AND FOLLOW UP WITH pcp FOR REGULAR cbc ONCE A WEEK WHILE SHE IS ON ANTIBIOTICS LINEZOLID FOR OSTEOMYELITIS. REGULAR FOLLOW UP FOR WOUND CHECK Medications: SEE PRESCRIPTION Discharge Statement: "Patient was advised to return to the ER or call 911 if any headaches, dizziness, shortness of breath, chest pain, abdominal pain, bleeding, fevers, or worsening of medical condition. Patient was counseled about treatment plan, medications, possible side effects, patientverbalized understanding. All questions were answered to the best of my ability. This discharge took greater then 30 minutes in planning, reviewing documentation, counseling the patient, and discussing with other team members." ASSESSMENT ASSESSMENT Assessment Left foot osteomyelitis Left foot cellulitis Left foot gangrene Left foot abscess Left foot diabetic ulcer Date of Service: Feb 05, 2025 Billing Provider: GIOVANI MCKEON MD Common Visit Codes: [id number] DISCH DAY >30min SEE SHAFER RESIDENT Feb 05, 2025 15:44 GIOVANI MCKEON MD Feb 05, 2025 16:59
[2025-02-05] MEDS ORDERED: TRAM-626 PO ×2 (16:14→17:32)
== END 2025-02-05 16:55 | disposition home health service (06) | DRG 629 ==
LOC: ER 07:43 → OVERFLOW 14:52 → WEST WING 21:42
PROVIDERS: ADMIT Internal Medicine; ATTEND Internal Medicine
PROC: 0QBP0ZX Excision of Left Metatarsal, Open Approach, Diagnostic (ICD-10-PCS; 2025-02-01)
PROC: 0Y9N0ZZ Drainage of Left Foot, Open Approach (ICD-10-PCS; 2025-02-01)
PROC: 0QBP0ZX Excision of Left Metatarsal, Open Approach, Diagnostic (ICD-10-PCS; principal; 2025-02-01 15:22)
DX: E11.69 Type 2 diabetes mellitus with other specified complication (principal); E11.52 Type 2 diabetes mellitus with diabetic peripheral angiopathy with gangrene; I96 Gangrene, not elsewhere classified; L02.612 Cutaneous abscess of left foot; L03.116 Cellulitis of left lower limb; M86.8X7 Other osteomyelitis, ankle and foot; E11.621 Type 2 diabetes mellitus with foot ulcer; N17.0 Acute kidney failure with tubular necrosis; L97.529 Non-pressure chronic ulcer of other part of left foot with unspecified severity; Z79.84 Long term (current) use of oral hypoglycemic drugs; Z79.4 Long term (current) use of insulin; Z83.3 Family history of diabetes mellitus
CPT/HCPCS: 36415; 71045; 73700; 80048; 80053; 80202; 81001; 82728; 82962; 83540; 83550; 83880; 85025; 85610; 86141; 86850; 86900; 86901; 87040; 87081; 93005; 96360; G0378; J1100; J1815; J1885; J2003; J2405; J2543; J2704; J3490